=== PATIENT | male | born 1940 | race Caucasian/White ===

== ENCOUNTER 2024-07-09 14:28 | Outpatient (CLI) | payer MEDICARE, SELFPAY ==
--- NOTE | 2024-07-17 16:09 | ONC.NURNOTE ---
Received a referral to see hematology, called patient to let him know that it was received. Clarified from provider note that he did not have an appointment. He is aware that nursing will go over his information with Dr. Sahni on Sunday to find the appropriate timing to see him.
== END 2024-07-09 14:29 | disposition home or self-care (01) ==
PROVIDERS: PCP Internal Medicine; Visit Provider Family Medicine
DX: Z13.228 Encounter for screening for other metabolic disorders (principal); D47.3 Essential (hemorrhagic) thrombocythemia
CPT/HCPCS: 80053; 82728

== ENCOUNTER 2024-07-17 14:35 | Outpatient (CLI) | payer MEDICARE, SELFPAY | END 2024-07-17 14:36 | disposition home or self-care (01) | LOC: NFLDREF 07-22 03:07 | PROVIDERS: PCP Internal Medicine; Referring Provider Internal Medicine; Visit Provider Internal Medicine | DX: N30.00 Acute cystitis without hematuria (principal); B95.61 Methicillin susceptible Staphylococcus aureus infection as the cause of diseases classified elsewhere | CPT/HCPCS: 87086; 87186 ==

== ENCOUNTER 2024-07-23 08:17 | Outpatient (CLI) | payer MEDICARE, SELFPAY | END 2024-07-23 08:18 | disposition home or self-care (01) | LOC: NFLDREF 07-25 00:59 | PROVIDERS: PCP Internal Medicine; Referring Provider Internal Medicine; Visit Provider Internal Medicine | DX: D75.839 Thrombocytosis, unspecified (principal) | CPT/HCPCS: 87040 ==

== ENCOUNTER 2024-07-28 11:03 | Outpatient (CLI) | payer MEDICARE, SELFPAY ==
[2024-07-28 11:28] VITALS: BP 110/50; PULSE 59; RESP 14; O2SAT 96; BMI 22.8
[2024-07-28 12:30] VITALS: BP 103/57; PULSE 57; RESP 14; O2SAT 97
--- NOTE | 2024-07-28 12:34 | W.ANESCHARGE ---
Anesthesia Charges Start Date/Time Anesthesia Start Date: 07/28/24 Anesthesia Start Time: 12:01 Stop Date/Time Anesthesia Stop Date: 07/28/24 Anesthesia Stop Time: 12:30 Summary Extremes of Age - Over 70 or under 1: DATA PROCESSING AUDITOR Coding CPT Codes CPT Codes: ANESTH BONE ASPIRATE/BX - 96744 ([id number]) P2 - PATIENT W/MILD SYST DISEASE, QK - COMMERCIAL LOAN ANALYST 2-4 CNCRNT ANES PROC, QX - DATA PROCESSING AUDITOR SVC W/ MD MED DIRECTION Additional Codes: Summary - Extremes of Age - Over 70 or under 1: DATA PROCESSING AUDITOR ([id number])
--- NOTE | 2024-07-28 12:40 | W.ANESCHARGE ---
Anesthesia Charges Start Date/Time Anesthesia Start Date: 07/28/24 Anesthesia Start Time: 12:01 Stop Date/Time Anesthesia Stop Date: 07/28/24 Anesthesia Stop Time: 12:30 Summary Extremes of Age - Over 70 or under 1: MDA Coding CPT Codes CPT Codes: ANESTH BONE ASPIRATE/BX - 53689 ([id number]) P2 - PATIENT W/MILD SYST DISEASE, QK - OBGYN NURSE 2-4 CNCRNT ANES PROC, QX - CAMPUS RECRUITING INTERNSHIP SVC W/ MD MED DIRECTION Additional Codes: Summary - Extremes of Age - Over 70 or under 1: MDA ([id number])
[2024-07-28 12:41] VITALS: BP 106/60; PULSE 58; RESP 14; O2SAT 95
[2024-07-28 12:45] LABS: Basophils Absolute Auto 0.08 K/uL (0.00-0.30); Basophils Percent Auto 0.8 % (0.0-3.0); Eosinophils Absolute Auto 0.39 K/uL (0.00-0.50); Eosinophils Percent Auto 3.7 % (0.0-7.0); Hematocrit 39.3 % (37.0-53.0); Hemoglobin* 12.8 gm/dL (13.5-17.5); Immature Granulocytes Abs Auto 0.07 K/uL (0.00-0.30); Immature Granulocytes Pct Auto 0.7 %; Immature Reticulocyte Fraction 14.2 % (2.3-13.4); Lymphocytes Percent Auto 11.1 % (20-44); Mean Corpuscular HGB Conc 33 gm/dL (32-36); Mean Corpuscular Hemoglobin 30 pg (26-34); Mean Corpuscular Volume 91 fL (80-100); Monocytes Percent Auto 8.2 % (0.0-11.0); Neutrophils Percent Auto 75.5 % (42.0-72.0); Platelet Count* 816 K/uL (140-440); RDW Coefficient of Variation % 15.9 % (11.5-15.5); Red Blood Count 4.32 m/uL (4.30-5.90); Reticulocyte Hemoglobin Equivi 32.6 pg (29.0-35.0); Reticulocytes Absolute 0.04 # (0.03-0.08); White Blood Count* 10.48 K/uL (4.50-11.00)
[2024-07-28 12:50] LABS: Slide Review Reflex No
[2024-07-28 12:51] VITALS: BP 104/57; PULSE 55; RESP 16; O2SAT 95
== END 2024-07-28 13:11 | disposition home or self-care (01) ==
LOC: OR 11:04
PROVIDERS: Anesthesiology; PCP Internal Medicine; Visit Provider Internal Medicine Hematology & Oncology
DX: D47.1 Chronic myeloproliferative disease (principal); D75.839 Thrombocytosis, unspecified
CPT/HCPCS: 01112; 36415; 38222; 85025; 85045; 88237; 88264; 88305; 88311; 88313; 88360; 99100; J1644; J2003; J2704

== ENCOUNTER 2024-08-04 09:31 | Outpatient (CLI) | payer MEDICARE, SELFPAY | END 2024-08-04 09:32 | disposition home or self-care (01) | PROVIDERS: PCP Internal Medicine; Visit Provider Internal Medicine Hematology & Oncology | DX: R63.4 Abnormal weight loss (principal); K43.9 Ventral hernia without obstruction or gangrene; K40.90 Unilateral inguinal hernia, without obstruction or gangrene, not specified as recurrent; R16.1 Splenomegaly, not elsewhere classified; D47.1 Chronic myeloproliferative disease; D75.839 Thrombocytosis, unspecified | CPT/HCPCS: 71260; 74177; Q9967 ==

== ENCOUNTER 2024-08-04 10:21 | Emergency (ER) | payer MEDICARE, SELFPAY ==
[2024-08-04] VITALS (12 sets, daily range): BP systolic 96–121; BP diastolic 48–62; PULSE 50–57; RESP 4–22; TEMP 36.6; O2SAT 94–96; BMI 22.5
--- NOTE | 2024-08-04 10:45 | ED.ALLEREA ---
HPI - Allergic Reaction General Date Seen: 08/04/24 Chief complaint: Allergic Reaction Stated complaint: Potential allergic reaction from CT contrast Time Seen by Provider: 08/04/24 10:25 Source: patient and family Mode of arrival: ambulatory Limitations: no limitations History of Present Illness HPI narrative: Patient is a very nice 83-year-old gentleman who presents here for evaluation after he received IV contrast for an abdominal CT approximately 50 minutes ago. He was an outpatient for this procedure, developed some issue in his around his neck, and his torso. With the small area of rash. He also feels like he has a cotton mouth. He does not feel short of breath he is able to talk normally tells me. He has had no nausea vomiting, abdominal pain associated with this. No diarrhea. Or feeling like he might be dizzy or pass out. Further to this he does not have a history of any previous allergic reactions, Denies any chest pain, shortness of breath, wheezing, headache, neurologic symptoms. 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 Has appointment for spinal surgery coming up. History of the large ventral hernia abdominal. Cholecystectomy, No history of any cardiac, lung problems. MD complaint: allergic reaction, hives and other Onset (ago): minute(s) Exposure: medication ( Contrast) and other Symptoms: rash, itching and hoarseness Severity: moderate Treatment prior to arrival: none Previous Allergic Reaction History: none Related Data Home Medications ?Medication ?Instructions ?Recorded ?Confirmed mv-mn-folic 200 mcg-vit K 15 1 cap PO DAILY 09/10/23 08/04/24 mcg-lutein 5 mg-zeaxanthin 1 mg capsule (PreserVision AREDS 2 Plus Multivit) Relaxium PO 07/23/24 Previous Rx's ?Medication ?Instructions ?Recorded oxycodone 5 mg tablet 15 mg (3 x 5 mg) PO TID PRN pain 07/17/24 #180 tabs morphine 15 mg tablet,extended 15 mg PO Q12H #60 tabs 07/22/24 release (MS Contin) hydroxyurea 500 mg capsule (Hydrea) 500 mg PO BID #60 caps 07/23/24 prednisone 20 mg tablet 20 mg PO BID #10 tabs 08/04/24 Allergies Allergy/AdvReac Type Severity Reaction Status Date / Time amoxicillin Allergy Unknown Hives Verified 08/04/24 10:33 contrast dye Allergy Mild hives Uncoded 08/04/24 10:33 Review of Systems Status of ROS Reports: 10 or more systems reviewed and unremarkable except as noted in History and below [facility] Medical History 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) ?Z86.718 - Personal history of other venous thrombosis and embolism (ICD-10) Surgical History History of tonsillectomy ?Z90.89 - Acquired absence of other organs (ICD-10) History of appendectomy (1956) ?Z90.49 - Acquired absence of other specified parts of digestive tract (ICD-10) History of ventral hernia repair (09/2009) ?Z98.890 - Other specified postprocedural states (ICD-10) ?Z87.19 - Personal history of other diseases of the digestive system (ICD-10) History of cholecystectomy ?Z90.49 - Acquired absence of other specified parts of digestive tract (ICD-10) History of partial colectomy (2002) ?Z90.49 - Acquired absence of other specified parts of digestive tract (ICD-10) Family History Father Alcohol dependence Social History Smoking Status: Former smoker Do you use any of these nicotine containing products: None How often do you have a drink containing alcohol: never AUDIT-C Alcohol total score: 0 Non-prescribed substance use: denies use Exam Narrative: Exam Narrative: on examination in room 4 he is in no apparent distress speaking to me normally, nontoxic, pupils equal round reactive to light, oropharynx reveals a slightly swollen uvula, tonsillar pillars are normal, tongue is normal, mouth opening is normal with absence of trismus. Neck is supple, chest is good air entry bilaterally no wheezing crackles noted, heart sounds no clicks murmurs or gallops, abdomen is soft there is no guarding no organomegaly, large ventral hernias notable. No tenderness to palpation bowel sounds are normal, no CVA tenderness moves all extremities independently and well, cranial nerves 3-12 are normal, skin reveals areas of urticarial lesions. Over his chest and torso. Const: Vital Signs, click to edit/add: Vital Signs - 24 hr 08/04/24 10:28 08/04/24 11:19 08/04/24 11:30 Temperature 97.8 F Pulse Rate 50 L 52 L Pulse Rate [Right Pulse Oximeter] 57 L Respiratory Rate 16 14 7 L Blood Pressure Blood Pressure [Ri ght Upper Arm] 121/62 Pulse Oximetry 94 95 95 Oxygen Delivery Me thod Room Air 08/04/24 11:31 08/04/24 11:40 08/04/24 11:41 Temperature Pulse Rate 53 L 53 L Pulse Rate [Right Pulse Oximeter] Respiratory Rate 9 L 22 Blood Pressure 97/48 L 100/51 L Blood Pressure [Ri ght Upper Arm] Pulse Oximetry 95 96 94 Oxygen Delivery Me thod Documenting provider has reviewed patient's vital signs: yes Course Reevaluation(s) Time of Reevaluation #1: 12:29 Reevaluation #1: patient is feeling better, little bit tired from the Benadryl, a rash is gone away, his swelling of his uvula is markedly improved, I think at this point we can discharge him, I did talk to them about the fact that he is allergic to contrast in the should be known going forward for his other providers that are not in our system. We went over warning signs when he should be re-presented we will give a prescription for prednisone for the next 5 days, and he will use some [id number] Benadryl. They were anxious to get at a here, Vital Signs Vital signs: Initial Vital Signs Temperature 97.8 F 08/04/24 10:28 Temperature Source Temporal Artery Scan 08/04/24 10:28 Pulse Rate 57 L 08/04/24 10:28 Respiratory Rate 16 08/04/24 10:28 Blood Pressure 121/62 08/04/24 10:28 Blood Pressure Mean 81 08/04/24 10:28 Blood Pressure Position Sitting 08/04/24 10:28 Pulse Oximetry 94 08/04/24 10:28 Oxygen Delivery Method Room Air 08/04/24 10:28 Vital Signs Temperature 97.8 F 08/04/24 10:28 Pulse Rate 57 L 08/04/24 10:28 Respiratory Rate 16 08/04/24 10:28 Blood Pressure 121/62 08/04/24 10:28 Pulse Oximetry 94 08/04/24 10:28 Oxygen Delivery Method Room Air 08/04/24 10:28 Temperature 97.8 F 08/04/24 10:28 Pulse Rate 53 L 08/04/24 11:40 Respiratory Rate 22 08/04/24 11:40 Blood Pressure 100/51 L 08/04/24 11:40 Pulse Oximetry 94 08/04/24 11:41 Oxygen Delivery Method Room Air 08/04/24 10:28 Medications Administered Medications: Discontinued Medications Generic Name Dose Route Start Last Admin Trade Name Freq PRN Reason Stop Dose Admin Diphenhydramine HCl 25 mg 08/04/24 10:41 08/04/24 11:01 Diphenhydramine 50 Mg/Ml Inj IVP 08/04/24 10:42 25 mg ONCE ONE Administration Sodium Chloride 500 mls @ 500 mls/hr 08/04/24 10:44 08/04/24 11:02 0.9 % Sodium Chloride 500 Ml IV 08/04/24 11:43 500 mls/hr .Q1H ONE Administration Methylprednisolone Sodium Succinate 125 mg 08/04/24 10:41 08/04/24 11:01 Methylprednisolone Sod Succ 62.5 Mg/Ml (125) IVP 08/04/24 10:42 125 mg ONCE ONE Administration MDM - Allergic Reaction MDM Narrative Medical decision making narrative: during this evaluation I considered multiple diagnosis, such as infectious etiology, anaphylaxis, allergic reaction, urticaria, angioedema, or other possibilities, given his past history of myeloproliferative disease I suspect that something with this. He does have some mild throat swelling notable on examination we will go ahead start an IV, give him some Benadryl along with the some Solu-Medrol, watch him closely. For signs of worsening condition, judicious fluids will also be used. Given his age. Differential Diagnosis Differential diagnosis: Likely anaphylaxis, allergic reaction, angioedema, contact dermatitis, adverse reaction to drug, viral enanthem and urticaria Medical Records Attestation: I reviewed the patient's medical records. Lab Data Attestation: I reviewed the patient's lab results. Labs: Lab Results 08/04/24 Range/Units 10:47 WBC 4.28 L (4.50-11.00) K/uL RBC 4.04 L (4.30-5.90) m/uL Hgb 12.1 L (13.5-17.5) gm/dL Hct 37.3 (37.0-53.0) % MCV 92 (80-100) fL MCH 30 (26-34) pg MCHC 32 (32-36) gm/dL RDW Coeff of Kiran 16.0 H (11.5-15.5) % Plt Count 466 H (140-440) K/uL Neut % (Auto) 70.0 (42.0-72.0) % Lymph % (Auto) 19.4 L (20-44) % Beckham % (Auto) 7.2 (0.0-11.0) % Eos % (Auto) 2.3 (0.0-7.0) % Baso % (Auto) 0.9 (0.0-3.0) % Neut # (Auto) 3.00 (1.7-7.0) K/uL Lymph # (Auto) 0.80 L (0.90-2.90) K/uL Beckham # (Auto) 0.30 (0.00-0.90) K/UL Eos # (Auto) 0.10 (0.00-0.50) K/uL Baso # (Auto) 0.00 (0.00-0.30) K/uL Abs Immat Gran (auto) 0.00 (0.00-0.30) K/uL Imm/Tot Granulo (auto) 0.2 % Diff Slide Review Acceptable Review (Acceptable) Sodium 140 (135-149) mmol/L Potassium 3.9 (3.6-5.1) mmol/L Chloride 106 (96-114) mmol/L Carbon Dioxide 26 (20-32) mmol/L Anion Gap 8 (7-15) mEq/L BUN 24 (7-30) mg/dL Creatinine 0.8 (0.5-1.5) mg/dL Estimated Creat Clear 51.28 Estimated GFR 87 ml/min Glucose 102 (60-115) mg/dL Calcium 8.8 (8.4-10.6) mg/dL ECG Data Attestation: I personally reviewed and interpreted this ECG as follows: ECG interpretation date: 08/04/24 Prior ECG tracings: available for review Interpretation: Patient EKG lots of artifact secondary to muscle tremors. He has occasional PVCs, no acute changes, compared to old EKG from 07/28/2024, less muscle movement artifact is noted, QT is slightly prolonged, at 436 Discharge Plan Discharge Clinical Impression: Allergic reaction to contrast dye Patient Disposition: Home w/ Parent or Adult Condition: Improved Instructions: Urticaria (ED), General Allergic Reaction (ED) Additional Instructions: home, rest, use of Benadryl, 25 mg p.o. t.i.d. for the next 24 hours, if rash reoccurs, recommend use of prednisone 20 mg b.i.d. for 5 days. Please know that you will likely have a reaction to contrast now for CT scans in the should be voiced year doctors, including if you have any follow-up CT scans in the future. Return if increasing shortness of breath, Oropharyngeal swelling, rash,chest pain or other issues. Activity Level: Light activity Discharge Diet: Regular Prescriptions: New prednisone 20 mg tablet 20 mg PO BID Qty: 10 0RF No Action PreserVision AREDS 2 Plus MV 200 mcg-15 mcg- 5 mg-1 mg capsule 1 cap PO DAILY oxycodone 5 mg tablet 15 mg PO TID PRN (Reason: pain) Qty: 180 0RF Relaxium PO Patient Comments: Helps sleep at night hydroxyurea [Hydrea] 500 mg capsule 500 mg PO BID Qty: 60 1RF morphine [MS Contin] 15 mg tablet extended release 15 mg PO Q12H Qty: 60 0RF Follow Up/Referrals: Nicolette Parikh MD [Primary Care Provider] - Stand Alone Forms: [employer] Info Instructions
[2024-08-04 11:00] LABS: Basophils Percent Auto 0.9 % (0.0-3.0); Eosinophils Percent Auto 2.3 % (0.0-7.0); Hematocrit 37.3 % (37.0-53.0); Hemoglobin* 12.1 gm/dL (13.5-17.5); Immature Granulocytes Pct Auto 0.2 %; Lymphocytes Percent Auto 19.4 % (20-44); Mean Corpuscular HGB Conc 32 gm/dL (32-36); Mean Corpuscular Hemoglobin 30 pg (26-34); Mean Corpuscular Volume 92 fL (80-100); Monocytes Percent Auto 7.2 % (0.0-11.0); Platelet Count* 466 K/uL (140-440); Red Blood Count 4.04 m/uL (4.30-5.90); White Blood Count* 4.28 K/uL (4.50-11.00)
[2024-08-04] MEDS: METHYLPREDNISOLONE SOD SUCC 62.5 MG/ML (125) 125 MG IVP (11:01)
[2024-08-04] MEDS: diphenhydrAMINE 50 MG/ML inj 25 MG IVP (11:01)
[2024-08-04] MEDS: 0.9 % SODIUM CHLORIDE 500 ML 500 ML IV (11:02)
[2024-08-04 11:07] LABS: Slide Review Reflex Yes
[2024-08-04 11:08] LABS: Chloride* 106 mmol/L (96-114); Potassium* 3.9 mmol/L (3.6-5.1); Sodium* 140 mmol/L (135-149)
[2024-08-04 11:11] LABS: Anion Gap 8 mEq/L (7-15); Blood Urea Nitrogen* 24 mg/dL (7-30); Carbon Dioxide* 26 mmol/L (20-32); Creatinine* 0.8 mg/dL (0.5-1.5); Est. Creatinine Clearance* 51.28; Estimated Glomerular Filt Rate 87 ml/min; Glucose* 102 mg/dL (60-115)
[2024-08-04 11:12] LABS: Calcium* 8.8 mg/dL (8.4-10.6)
[2024-08-04 11:21] LABS: Slide Review Acceptable Review (Acceptable)
== END 2024-08-04 13:00 | disposition home or self-care (01) ==
PROVIDERS: Emergency Provider Family Medicine; PCP Internal Medicine
DX: R21 Rash and other nonspecific skin eruption (principal); T50.8X5A Adverse effect of diagnostic agents, initial encounter
CPT/HCPCS: 36415; 80048; 85025; 93005; 94761; 96374; 96375; 99284; J1200; J2919; J7030

== ENCOUNTER 2024-08-07 14:54 | Outpatient (CLI) | payer MEDICARE, SELFPAY ==
--- NOTE | 2024-08-07 15:00 | CRLHL7_ITS ---
For Patients: As a result of the 21st Century Cures Act, medical imaging exams and procedure reports are released immediately into your electronic medical record. You may view this report before your referring provider. If you have questions, please contact your health care provider. EXAM: FDG PET-CT Whole Body CLINICAL INFORMATION: 83-year-old woman with history of bone marrow disorders/myeloproliferative neoplasm. Initial staging TECHNIQUE: Radiopharmaceutical: 18F-fluorodeoxyglucose (18F-FDG) Dose: 12.6 milliCurie Blood glucose: 86 mg/dL. Image acquisition: At approximately 60 minutes following IV tracer administration via a right antecubital vein, positron emission tomography was performed from the vertex of the skull through the feet. Non-contrast low-dose helical CT imaging was performed over the same range without breath-hold for attenuation correction of PET images and anatomic correlation; it is neither sufficient, nor should it be substituted for diagnostic purposes. COMPARISON: CT chest abdomen and pelvis 08/04/2024. FINDINGS: Mediastinal blood pool FDG uptake: SUVMax 3.0 (image 149) Liver background parenchymal FDG uptake: SUVMax 4.2 (image 194) HEAD AND NECK: No abnormal FDG uptake in the imaged head and neck. Bilateral lens replacements. CHEST: Ports and devices: None. Lungs: No abnormal FDG uptake. Biapical scarring. Subsegmental atelectasis. Pleura: No abnormal FDG uptake. Thoracic lymph Nodes: No abnormal FDG uptake. Mediastinum: No abnormal FDG uptake. Coronary artery calcifications. Atherosclerotic calcifications of the thoracic aorta. Breasts/Chest Wall: No abnormal FDG uptake. ABDOMEN/PELVIS: Liver/biliary system: No abnormal FDG uptake. Cholecystectomy clips. Pancreas: No abnormal FDG uptake. Spleen: No abnormal FDG uptake. Unchanged splenomegaly measuring 15.0 cm in the craniocaudal dimension compared to 08/04/2024 (5:176, remeasured). Adrenal Glands: No abnormal FDG uptake. Kidneys: No abnormal FDG uptake. Bilateral renal cysts. Bowel/mesentery, Omentum and Peritoneum: No abnormal FDG uptake. Large ventral abdominal wall hernia with rectus diastasis containing nonobstructed large and small bowel loops. Large right inguinal hernia extending into the scrotum containing nonobstructed terminal ileum, cecum, and proximal ascending colon. Prior partial colectomy with patent anastomosis in the central lower abdomen. Atherosclerotic calcifications. Pelvic Organs: Intense asymmetric focal uptake in the right epididymis SUVMax 14.1 (Image 338). Abdominopelvic Lymph Nodes: No abnormal FDG uptake. Musculoskeletal/Lower extremities: Diffusely increased mild focal uptake and. Fixation plate along the right distal fibula with hardware fixation screws. Hardware fixation screw in the right medial malleolus. Diffusely increased mild marrow uptake in the axial skeleton for example in the right posterior iliac bone SUV max 3.8 (image 260). Multilevel degenerative changes in the spine. Compression deformity at T7. IMPRESSION: 1. Diffusely increased mild marrow uptake in the axial and proximal appendicular skeleton likely representing reticuloendothelial cell activation. Together with splenomegaly measuring 15.0 cm, although without evidence of abnormal increased splenic FDG uptake, findings are compatible with either a systemic inflammatory process, versus a low-grade myeloproliferative process. Correlate with clinical history for recent infection/inflammation. In the absence of any recent infection/inflammation, correlate with bone marrow sampling. 2. Intense FDG uptake in the right epididymis may be inflammatory. Correlate with testicular ultrasound. Dictated by Deniz Hagan MD @ 08/11/2024 10:28:48 AM (Electronically Signed)
== END 2024-08-07 14:55 | disposition home or self-care (01) ==
LOC: RAD 14:55
PROVIDERS: PCP Internal Medicine; Visit Provider Internal Medicine Hematology & Oncology
DX: R77.9 Abnormality of plasma protein, unspecified (principal); C88.80 Other malignant immunoproliferative diseases not having achieved remission
CPT/HCPCS: 78816; A9552

== ENCOUNTER 2024-09-04 13:51 | Outpatient (CLI) | payer MEDICARE, SELFPAY ==
--- NOTE | 2024-09-04 13:45 | CRLHL7_ITS ---
For Patients: As a result of the Century Cures Act, medical imaging exams and procedure reports are released immediately into your electronic medical record. You may view this report before your referring provider. If you have questions, please contact your health care provider. INDICATION: Abnormal PET uptake right epididymis COMPARISON: CT 08/04/2024, 08/07/2024 TECHNIQUE: Victoria scale imaging was performed of the scrotum. In addition color Doppler and spectral Doppler analysis was performed of the testes. FINDINGS: The testes demonstrate normal arterial and venous blood flow on color Doppler and spectral Doppler analysis. The testes have uniform echogenicity with no evidence of a suspicious mass or area of inflammation. Bilateral rete testes incidentally noted. The right testis measures 4.1 x 2.0 x 5.0 cm in size and the left testis measures 4.0 x 2.2 x 3.2 cm. Multiple simple cysts are present adjacent to the left epididymal head measuring up to 1.6 cm. Smaller right epididymal head cysts are present measuring up to 4 millimeters. There is no evidence of a hydrocele or varicocele. IMPRESSION: Multiple cysts are present adjacent to the left epididymal head measuring up to 1.6 cm. No testicular mass. No solid epididymal lesion. Dictated by Colin Escobar MD @ 09/05/2024 7:12:57 AM (Electronically Signed)
== END 2024-09-04 13:52 | disposition home or self-care (01) ==
PROVIDERS: PCP Internal Medicine; Visit Provider Internal Medicine Hematology & Oncology
DX: D47.3 Essential (hemorrhagic) thrombocythemia (principal); N50.3 Cyst of epididymis; R63.4 Abnormal weight loss; Z86.718 Personal history of other venous thrombosis and embolism
CPT/HCPCS: 76870; 93976

== ENCOUNTER 2024-10-03 12:53 | Emergency (ER) | payer MEDICARE, SELFPAY ==
--- OUTSIDE RECORDS SUMMARY | 2024-10-03 12:56 | XMS_ITS | Encounter Summary ---
Author Organization [facility] Address [address] [place] [id number] Care Team Providers Care Integrated Marketing Specialist Name Role Phone Sydney Huff DO Unavailable [phone] Leidy Henderson AuD Unavailable [phone] RefugioBetoSydney DO Unavailable [phone] Nicolette Parikh MD Primary Care Provider [phone] Rd Chang MD Unavailable [phone] Jorge A Storey MD Unavailable [phone] Encounter Details Date Type Department Care Team (Late st Contact Info) Description 09/01/2024 Documentation Only [facility] [address] [place] [address] Jorge A Storey MD [address] [place] [id number] Social History Tobacco Use Types Packs/Day Years Used Date Smoking Tobacco: Former Passive Smoke Exposure: Past Smokeless Tobacco: Never Alcohol Use Standard Drinks/Week Comments Yes 0 (1 standard drink = 0.6 oz pur e alcohol) PHQ-2 Answer Date Recorded PHQ-2 Score 0 07/22/2024 Adolescent Education Answer Date Record ed Getting School Help Needed Not on file 02/17 Sex and Gender Information Value Date Recorded Sex Assigned at Not on file Legal Sex Male 1:28 PM CDT Gender Identity Not on file Sexual Orientation Not on file documented as of this encounter Progress Notes * Kendall Yusuf - 09/01/2024 5:46 PM CDT Luis Markham has an upcoming lab appointment: Future Appointments Date Time Provider Department Center 09/03/2024 12:15 PM Melody Wood PA-C [facility] 09/04/2024 11:45 AM [facility] 10/28/2024 12:50 PM Jorge A Storey MD [facility] 01/02/2025 10:45 AM Sydney Huff DO [facility] Patient is scheduled for the following lab(s): There is no order available. Please review and place either future orders or HMPO (Review of HealthMaintenance Protocol Orders), as appropriate. Health Maintenance Due Topic ANNUAL REVIEW OF HM ORDERS Kendall Yusuf documented in this encounter Plan of Treatment Upcoming Encounters Date Type Department Care Team (Late st Contact Info) Description 10/28/2024 12:50 PM CDT Office Visit [facility] Orthopedic [address] [phone] Jorge A Storey MD [address] [place] [id number] 01/02/2025 10:45 AM CDT Office Visit [facility] [address] [phone] Sydney Huff DO [address] [place] [id number] documented as of this encounter Visit Diagnoses Not on filedocumented in this encounter Care Teams Integrated Marketing Specialist Relationship Specialty Start Date End Date Nicolette Parikh MD [address] [address] PCP - General Internal Medicine 10/18/22 Sydney Huff DO [address] [place] [address] Neurology 08/05/21 Leidy Henderson AuD [address] [place] [address] [employer] Audiology 11/14/21 Sydney Huff DO [address] [place] [id number] Assigned Neuroscience Provider 01/21/22 Rd Chang MD [address] [place] [id number] Assigned PCP 04/19/24 Jorge A Storey MD [address] [place] [id number] Assigned Musculoskeletal Provider 08/17/24 documented as of this encounter
--- OUTSIDE RECORDS SUMMARY | 2024-10-03 12:56 | XMS_ITS | Encounter Summary ---
Author Organization [facility] Address [address] [place] [address] Care Team Providers Care Customer Support Engineer Name Role Phone Sydney Huff Unavailable [phone] Leidy Henderson Unavailable [phone] RefugioSydney Unavailable [phone] Nicolette Parikh MD Primary Care Provider Rd Chang MD Unavailable [phone] Jorge A Storey MD Unavailable + [phone] Reason for Visit * Reason Onset Date Comments Patient Request 09/02/2024 Lab orders Clinic Care Coordination - Follow-up 09/02/2024 Encounter Details Date Type Department Care Team (Late st Contact Info) Description 09/02/2024 Telephone [facility] [address] [place] [address] Jorge A Storey MD [address] [place] [address] [id number] Patient Request (Lab orders); Clinic Care Coordination - Follow-up Social History Tobacco Use Types Packs/Day Years [...] on file documented as of this encounter Miscellaneous Notes * Telephone Encounter - Ingrid Escobedo RN - 09/04/2024 3:02 PM CDT See phone messages back & forth with pt. Pt did not have preop H&P done by [facility] clinic. I called & spoke to pt & who stated preop H&P was done by Primary provider at [facility] but they can't remember what date until they get home & check their calendar. stated she spoke to Primary office today & asked them to fax to us. I told them if it was done less than 30 days before surgery date next week 09-11-24, then needs to be repeated STAT so will need to call primary clinic right away & she agreed. Provided our clinic fax# & ph# prn. Reviewed needs Labs ORDERED BY PRIMARY & last labs in emr of 08-04-24 were in ER & outside the 30 day window so will need to be repeated & ORDERED BY PRIMARY PROVIDER & they agreed. Call back prn. They agreed. Ingrid Escobedo RN. * Telephone Encounter - Mckenna Odonnell - 09/04/2024 11:58 AM CDT Other: Patient is at the [facility] lab right now for blood draw. They do not have orders. Can theses orders be placed by Dr. Storey, so patient can be seen today? Please call them back as soon as possible. Could we send this information to you in [place] or would you prefer to receive a phone call?: Patient would prefer a phone call Okay to leave a detailed message?: Yes at Cell number on file: Telephone Information: * Telephone Encounter - Yvonne Trejo RN - 09/03/2024 9:58 AM CDT Labs will be placed by [facility] today prior to lab tomorrow. Yvonne Trejo RN * Telephone Encounter - Rubina Bowie - 09/03/2024 8:[address] [facility] calling again- to confirm labs will be put in before the lab appt tomorrow * Telephone Encounter - Yvonne Trejo RN - 09/02/2024 10:33 AM CDT RN attempted to call patient's to discuss labs. Patient is seeing pre op tomorrow where labs will be ordered and then completed on . Yvonne Trejo RN * Telephone Encounter - Tee Darby - 09/02/2024 8:51 AM CDT Order(s): Other: Reason for requested: Pt needs lab orders for a blood draw on at [facility] Date needed: 09/02 Provider name: Dr. Storey Could we send this information to you in [place] or would you prefer to receive a phone call?: Patient would prefer a phone call Okay to leave a detailed message?: Yes at Cell number on file: Telephone Information: documented in this encounter Plan of Treatment Upcoming Encounters Date Type Department Care Team (Late st Contact Info) Description 10/28/2024 12:50 PM CDT Office Visit [facility] [address] [phone] Jorge A Storey MD [address] [place] [address] 947065 01/02/2025 10:45 AM CDT Office Visit [facility] [address] [place] [phone] Sydney Huff DO [address] [place] [address] documented as of this encounter Visit Diagnoses Not on filedocumented in this encounter Care Teams Customer Support Engineer Relationship Specialty Start Date End Date Nicolette Parikh MD [address] [address] PCP - General Internal Medicine 10/18/22 Sydney Huff DO [address] [place] [address] 23773 Neurology 08/05/21 Leidy Henderson AuD [address] [place] [address] Ese Teacher Audiology 11/14/21 Sydney Huff DO [address] [place] [address] 77080 Assigned Neuroscience Provider 01/21/22 Rd Chang MD [address] [place] [address]65 Assigned PCP 04/19/24 Jorge A Storey MD [address] [place] [address] 97[address] Assigned Musculoskeletal Provider 08/17/24 documented as of this encounter
--- OUTSIDE RECORDS SUMMARY | 2024-10-03 12:56 | XMS_ITS | Encounter Summary ---
Author Organization [facility] Address [address] [place] [address] Care Team Providers Care Shoe Associate Name Role Phone Sydney Huff DO Unavailable [phone] Leidy Henderson Unavailable [phone] Sydney Huff Unavailable [phone] Nicolette Parikh MD Primary Care Provider Rd Chang MD Unavailable [phone] Jorge A Storey MD Unavailable + [phone] Reason for Visit * Reason Comments Pre-Op Exam Encounter Details Date Type Department Care Team (Latest Contact Info) Description 09/03/2024 12:15 PM CDT Virtual Visit [facility] [address] 5th [place] [address] Melody Wood, PA-C [address] [place] [address] [phone] NO SHOW (Primary Dx) Anesthesia Record Procedure Summary Procedure Name Responsible Anesthesiologist Anesthesia Start Time Anesthesia Stop Time Lumbar 5 to Sacral 1 Decompression (Spine) Margaret Rao MD 09/11/24 1228 09/11/24 1505 Events Date Time Event Comment 09/11/2024 0708 1037 CERTIFIED DETENTION DEPUTY Ready for Procedure 1228 An Start Anesthesia Star t is defined as when the anesthesia provider assumed care, began anesthesia prep, remained continuously present with the patient, and excludes all time for performing the pre-anesthesia evaluation. The Pre-Anesthesia Evaluation was completed before Anesthesia Start. 1234 An Start Data 1235 AN REASSESS I attest that I have identified and re-evaluated the patient immediately before the induction of anesthesia and I am satisfied that the anesthetic plan is suitable for the patient's condition and procedure. The first vital signs recorded are pre-induction. SHAISTA PERALES APRN CRNA 1241 An Induction 1245 An Intubation 1300 Anesthesia Ready for Procedu re 1303 MD Present 1323 AN INCISION 1436 CERTIFIED DETENTION DEPUTY Handoff I, Luisana Lawson APRN CRNA, attest that I have reviewed all the significant information with the provider relieving me and assuming care of this patient. All questions were answered, anesthesia and OR team are aware of change of CERTIFIED DETENTION DEPUTY. 1457 AN Extubation All extubation criteria met prior to removal. 1505 an stop data 1505 An Stop Electronically signed by Luisana Lawson APRN CRNA on September 11, 2024 3:05 PM Meds * Agents No agents on file. * Blood No blood administrations on file. Lines, Drains, and Airways Type Details Placement Removal Incision/Surgical Site Incision; 5; 1351; Lower, Midline; Back 09/11/24 1351 by Koko Dinh RN Peripheral IV 09/11/24; 1106; 18 G ; Anterior, Left; Hand; Tolerated well 09/11/24 1106 by Serena Morales RN 09/14/24 1400 by Dane Mcgarry RN ETT Placement Date: 09/11/24; Placement Time: 1245 (created via procedure documentation); Mask Ventilation: 1; Induction Type: Intravenous; Ease of Intubation: Easy; Technique: Video laryngoscopy; Tube Size: 7.5 mm; VL Blade Size: MAC 3; Grade View: 1; Adjucts: Stylet; Placement Person: CERTIFIED DETENTION DEPUTY; Attempts: 1 09/11/24 1245 by Jessica Reynolds APRN CRNA 09/11/24 1457 by Luisana Lawson APRN CRNA Drain 09/11/24; 1414; Closed/Suction; Inferior, Left, Medial; Back; Accordion; 10 English 09/11/24 1414 by Koko Dinh RN 09/14/24 1000 by Dane Mcgarry RN documented in this encounter Social History Tobacco Use Types Packs/Day Years Used Date Smoking Tobacco: Former Cigarettes Passive Smoke Exposure: Past Smokeless Tobacco: Never Tobacco Cessation:Counseling Given: Not Answered Alcohol Use Standard Drinks/Week Comments Not Currently 0 (1 standard drink = 0.6 oz [...] on file documented as of this encounter Last Filed Vital Signs Vital Sign Reading Time Taken Comments Blood Pressure - - Pulse - - Temperature - - Respiratory Rate - - Oxygen Saturation - - Inhaled Oxygen Concentration - - Weight 65.8 kg (145 lb) 09/03/2024 12:11 PM CDT Height 172.7 cm (5' 8) 09/03/2024 12:11 PM CDT Body Mass Index 22.05 09/03/2024 12:11 PM CDT documented in this encounter Patient Instructions * Patient Instructions* Ingrid Buck RN - 09/03/2024 12:15 PM CDT Opened in error, pt unable to virtually connect documented in this encounter Progress Notes * Neema Wilkes LPN - 09/03/2024 12:15 PM CDT Arjun is a 83 year old who is being evaluated via a billable video visit. How would you like to obtain your AVS? Subjective Arjun is a 83 year old, presenting for the following health issues: Pre-Op Exam N Chung FRYE documented in this encounter H&P Notes * Melody Wood PA-C - 09/03/2024 12:15 PM CDT Visit was not completed. After rooming staff completed intake with patient, he and family stated that they actually do not have the capabilities for a virtual visit (no working camera or microphone).Due to this, an H&P was not done today. The patient stated he also cannot physically come to [facility] for an appointment, so will reach out to his PCP to complete a pre-op. Melody Wood PA-C on 09/03/2024 at 12:28 PM Review of Systems The complete review of systems is negative other than noted in the HPI or here. Anesthesia Evaluation ROS/MED HX ENT/Pulmonary: Neurologic: Comment: Essential tremor Cardiovascular: (+) - - - - - Previous cardiac testing Echo: Date: Results: Stress Test: Date: Results: ECG Reviewed: Date: 08/04/24 Results: sinus bradycardia with premature supraventricular complexes, junctional ST depression, probably normal Cath: Date: Results: METS/Exercise Tolerance: Hematologic: Comments: Thrombocytosis (+) History of blood clots (2021), pt is not anticoagulated, Musculoskeletal: Comment: 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 GI/Hepatic: Comment: Chronic ventral and right inguinal hernias Renal/Genitourinary: Endo: Psychiatric/Substance Use: Infectious Disease: Malignancy: Other: documented in this encounter Plan of Treatment Upcoming Encounters Date Type Department Care Team (Late st Contact Info) Description 10/28/2024 12:50 PM CDT Office Visit [facility] [address] [place] [phone] Jorge A Storey MD [address] [place] [address] [id number] 01/02/2025 10:45 AM CDT Office Visit [facility] [address] [address] Sydney Huff DO [address] [place] [address] [phone] documented as of this encounter Visit Diagnoses Diagnosis NO SHOW- Primary documented in this encounter Care Teams Shoe Associate Relationship Specialty Start Date End Date Nicolette Parikh MD [address] [address] PCP - General Internal Medicine 10/18/22 Sydney Huff DO [address] [place] [address] Neurology 08/05/21 Leidy Henderson AuD [address] [place] [address] 284[address] Stock Supervisor Audiology 11/14/21 Sydney Huff DO [address] [place] [address] 19821 Assigned Neuroscience Provider 01/21/22 Rd Chang MD [address] [place] [address] Assigned PCP 04/19/24 Jorge A Storey MD [address] [place] [address] 30765 Assigned Musculoskeletal Provider 08/17/24 documented as of this encounter
--- OUTSIDE RECORDS SUMMARY | 2024-10-03 12:57 | XMS_ITS | Encounter Summary ---
Author Organization [facility] Address [address] [place] [address] Care Team Providers Care Balloon Dipper Name Role Phone Sydney Huff Unavailable [phone] Leidy Henderson Unavailable [phone] Sydney Huff DO Unavailable [phone] Nicolette Parikh MD Primary Care Provider Rd Chang MD Unavailable [phone] Jorge A Storey MD Unavailable + [phone] Reason for Visit * Reason Onset Date Comments Call Back 08/21/2024 update Clinic Care Coordination - Follow-up 08/21/2024 Encounter Details Date Type Department Care Team (Late st Contact Info) Description 08/21/2024 Telephone [facility] [address] [place] [address] Jorge A Storey MD [address] [place] [address] [phone] Call Back (update); Clinic Care Coordination - Follow-up Social History [...] Telephone Encounter - Ingrid Escobedo RN - 08/21/2024 3:31 PM CDT See phone message from pt. I called & told pt that per last dictation by pt needs RTN virtual appt to make finaldecision about surgery & pt agreed. Made appt. Call back prn. Ingrid Escobedo RN. * Telephone Encounter - Tee Darby - 08/21/2024 2:46 PM CDT Other: Pt calling to update that his oncology doctor, Dr. Sahni has approved him for surgery, doctors number is Could we send this information to you in [place] or would you prefer to receive a phone call?: Patient would prefer a phone call Okay to leave a detailed message?: Yes at Home number on file [phone] (home) documented in this encounter Plan of Treatment Upcoming Encounters Date Type Department Care Team (Late st Contact Info) Description 10/28/2024 12:50 PM CDT Office Visit [facility] [address] [place] [phone] Jorge A Storey MD [address] [place] [address] 01/02/2025 10:45 AM CDT Office Visit [facility] [address] [address] Sydney Huff DO [address] [place] [address] 746335 documented as of this encounter Visit Diagnoses Not on filedocumented in this encounter Care Teams Balloon Dipper Relationship Specialty Start Date End Date Nicolette Parikh MD [facility] [address] [place] [address] PCP - General Internal Medicine 10/18/22 Sydney Huff DO [address] [place] [address] Neurology 08/05/21 Leidy Henderson AuD [address] [place] [address] Robot Designer Audiology 11/14/21 Sydney Huff DO [address] [place] [address] 00449 Assigned Neuroscience Provider 01/21/22 Rd Chang MD [address] [place] [address] 60814 Assigned PCP 04/19/24 Jorge A Storey MD [address] [place] [address]9023 Assigned Musculoskeletal Provider 08/17/24 documented as of this encounter
--- OUTSIDE RECORDS SUMMARY | 2024-10-03 12:57 | XMS_ITS | Encounter Summary ---
Author Organization [facility] Address [address] [place] [address]70 Care Team Providers Care Tube Man Name Role Phone Tiff Lamar MD Unavailable [phone] Madalyn Sims NP Unavailable Tiff Lamar MD Primary Care Provider + [phone] Sydney Huff DO Unavailable [phone] Leidy Henderson Unavailable [phone] Sydney Huff DO Unavailable [phone] Sydney Huff DO Unavailable [phone] Nicolette Parikh MD Primary Care Provider Barry Grubbs CNP Unavailable + [phone] Rd Chang MD Unavailable [phone] Jorge A Storey MD Unavailable [phone] Encounter Details Date Type Department Care Team (Late st Contact Info) Description 06/27/2016 Records - [facility] HE CONVERSION Scan, Non-Provider Social History Tobacco Use Types Packs/Day Years Used Date Smoking Tobacco: Never Assessed Sex and Gender Information Value Date Recorded Sex Assigned at Not on file Legal Sex Male 1:28 PM CDT Gender Identity Not on file Sexual Orientation Not on file documented as of this encounter Plan of Treatment Upcoming Encounters Date Type Department Care Team (Late Contact Info) Description 10/28/2024 12:50 PM CDT Office Visit [facility] [address] 4th [place] [phone] Jorge A Storey MD [address] [place] [address] 01/02/2025 10:45 AM CDT Office Visit [facility] Neurology [place] [place] [phone] Sydney Huff DO [address] [place] [address] documented as of this encounter Visit Diagnoses Not on filedocumented in this encounter Care Teams Tube Man Relationship Specialty Start Date End Date Tiff Lamar MD [address] [place] [address]43 PCP - General Family Practice 10/16/14 03/27/22 Nicolette Parikh MD [address] [address] PCP - General Internal Medicine 10/18/22 Tiff Lamar MD Assigned PCP 11/10/20 09/29/22 Madalyn Sims NP [address] [place] [address] 27637 Assigned Surgical Provider 12/10/20 01/01/21 Sydney Huff DO [address] [place] [address] Neurology 08/05/21 Leidy Henderson AuD [address] [place] [address] Manager Hotel Audiology 11/14/21 Sydney Huff DO [address] [place] [address] Assigned Neuroscience Provider 01/21/22 Sydney Huff DO [address] [place] [address] Assigned Neuroscience Provider 11/12/21 01/20/22 Barry Grubbs CNP [address] [facility] [address] [place] [address] Assigned PCP 09/30/22 04/18/24 Rd Chang MD [address] [place] [address] [place] [address] Assigned PCP 04/19/24 Jorge A Storey MD [address] [place] [address] Assigned Musculoskeletal Provider 08/17/24 documented as of this encounter
--- OUTSIDE RECORDS SUMMARY | 2024-10-03 12:57 | XMS_ITS | Encounter Summary ---
Author Organization [facility] Address [address] [place] [address] Care Team Providers Care Head Waitress Name Role Phone Tiff Lamar MD Unavailable [phone] Madalyn Sims NP Unavailable Tiff Lamar MD Primary Care Provider + [phone] Sydney Huff DO Unavailable [phone] Leidy Henderson Unavailable [phone] Sydney Huff DO Unavailable [phone] Sydney Huff DO Unavailable [phone] Nicolette Parikh MD Primary Care Provider [phone] Barry Grubbs CNP Unavailable + [phone] Rd Chang MD Unavailable [phone] Jorge A Storey MD Unavailable [phone] Encounter Details Date Type Department Care Team (Late st Contact Info) Description 03/09/2017 Records - [facility] HE CONVERSION Scan, Non-Provider [...] Description 10/28/2024 12:50 PM CDT Office Visit [facility] [address] 4th [place] [phone] Jorge A Storey MD [address] [place] [address] 01/02/2025 10:45 AM CDT Office Visit [facility] Neurology [place] [place] [phone] Sydney Huff DO [address] [place] [address] documented as of this encounter Visit Diagnoses Not on filedocumented in this encounter Care Teams Head Waitress Relationship Specialty Start Date End Date Tiff Lamar MD [address] [place] [address] PCP - General Family Practice 10/16/14 03/27/22 Nicolette Parikh MD [address] [address] PCP - General Internal Medicine 10/18/22 Tiff Lamar MD Assigned PCP 11/10/20 09/29/22 Madalyn Sims NP [address] [place] [address] Assigned Surgical Provider 12/10/20 01/01/21 Sydney Huff DO [address] [place] [address] Neurology 08/05/21 Leidy Henderson AuD [address] [place] [address] Battery Tester Audiology 11/14/21 Sydney Huff DO [address] [place] [address] Assigned Neuroscience Provider 01/21/22 Sydney Huff DO [address] [place] [address] Assigned Neuroscience Provider 11/12/21 01/20/22 Barry Grubbs CNP [address] [facility] [address] [place] [address] Assigned PCP 09/30/22 04/18/24 Rd Chang MD [address] [place] [address] [place] [address] Assigned PCP 04/19/24 Jorge A Storey MD [address] [place] [address] Assigned Musculoskeletal Provider 08/17/24 documented as of this encounter
--- OUTSIDE RECORDS SUMMARY | 2024-10-03 12:57 | XMS_ITS | Encounter Summary ---
Author Organization [facility] Address [address] [place] [address] Care Team Providers Care Switch Technician Name Role Phone Sydney Huff DO Unavailable [phone] Leidy Henderson AuD Unavailable [phone] RefugioSydney DO Unavailable [phone] Nicolette Parikh MD Primary Care Provider Rd Chang MD Unavailable [phone] Jorge A Storey MD Unavailable +[phone] Encounter Details Date Type Department Care Team (Latest Contact Info) Description 09/09/2024 Travel Social History Tobacco Use Types Packs/Day Years Used Date Smoking Tobacco: Former Cigarettes Passive Smoke Exposure: Past Smokeless Tobacco: Never Alcohol Use Standard Drinks/Week Comments Not Currently [...] Description 10/28/2024 12:50 PM CDT Office Visit [facility] Orthopedic Clinic [address] [place] [address] Jorge A Storey MD [address] [place] [address] 01/02/2025 10:45 AM CDT Office Visit [facility] Neurology Clinic [facility] [address] [place] [phone] Sydney Huff DO [address] [place] [address] documented as of this encounter Visit Diagnoses Not on filedocumented in this encounter Care Teams Switch Technician Relationship Specialty Start Date End Date Nicolette Parikh MD [address] [address] PCP - General Internal Medicine 10/18/22 Sydney Huff DO [address] [place] [address] Neurology 08/05/21 Leidy Henderson AuD [address] [place] [address] Senior Software Qa Engineer Audiology 11/14/21 Sydney Huff DO [address] [place] [address] Assigned Neuroscience Provider 01/21/22 Rd Chang MD [address] [place] [address] Assigned PCP 04/19/24 Jorge A Storey MD [address] [place] [address] 51592 Assigned Musculoskeletal Provider 08/17/24 documented as of this encounter
--- OUTSIDE RECORDS SUMMARY | 2024-10-03 12:57 | XMS_ITS | Encounter Summary ---
Author Organization [place] Address [facility] [place] [address] Care Team Providers Care Sccm Administrator Name Role Phone RefugioSydney Unavailable [phone] Leidy Henderson Unavailable [phone] Sydney Huff DO Unavailable [phone] Nicolette Parikh MD Primary Care Provider Rd Chang MD Unavailable [phone] Jorge A Storey MD Unavailable + [phone] Reason for Visit * Auth/Cert Specialty Diagnoses / Procedures Referred By Arron t Referred To Contact Surgery Diagnoses 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 Cyst of lumbar facet joint [M71.38] Spinal stenosis of lumbar region with neurogenic claudication [M48.062] Procedures [place] NEWELL W/O FACETEC FORAMOT/DSKC 1/2 VRT SEG, LUMBAR Lumbar 5 to Sacral 1 Decompression [facility] [address] [place] [address] [place] [phone] Phone: tel: fax: Referral ID Status Reason Start Date Expiration Date Visits Re quested Visits Authorized [id number] 1 1 Encounter Details Date Type Department Care Team (Late st Contact Info) Description 09/11/2024 11:55 AM CDT - 09/11/2024 2:15 PM CDT Surgery [facility] [address] [place] [address] [place] [phone] Jorge A Storey MD [address] [place] [address] Lumbar 5 to Sacral 1 Decompression Surgery Details Date/Time Status Location OR Service Patient Class Case Class Case Type Trauma Case? 09/11/2024 11:55 AM Posted UR OR UR OR 17 Orthopedics Same Day Surgery Elective Panel 1 Procedure LRB Anes Op Region Wound Class Comments Lumbar 5 to Sacral 1 Decompression N/A General Spine I-Clean Surgeon Surgeon Role Service Panel Bishop Jess Valderrama, PAMiC Assisting Orthopedics 1 Jorge A Storey MD Primary Orthopedic s 1 Vinayak Zhu MD Fellow - Assisting Orthopedics 1 Special Needs Estimated Blood Loss: 25ccH&P to be completed by?PLACE PNEUMOBOOTS ON PATIENT IN PRE-OP documented in this encounter Social History Tobacco Use Types Packs/Day Years Used Date Smoking Tobacco: Former Cigarettes Passive Smoke Exposure: Past Smokeless Tobacco: Never Alcohol Use Standard Drinks/Week Comments Not Currently 0 (1 standard drink = 0.6 oz pur e alcohol) PHQ-2 Answer Date Recorded PHQ-2 Score 0 07/22/2024 Adolescent Education Answer Date Record ed Getting School Help Needed Not on file 02/17 Food Insecurity Answer Date Recorded Within the past 12 months, d id you worry that your food would run out before you got money to buy more? No 09/11/2024 Within the past 12 months, d id the food you bought just not last and you didn t have money to get more? No 09/11/2024 Housing Stability Answer Date Recorded Do you have housing? (Housin g is defined as stable permanent housing and does not include staying outside in a car, in a tent, in an abandoned building, in an overnight detention, or couch-surfing.) Yes 09/11/2024 Are you worried about losing your housing? No 09/11/2024 Financial Resource Strain Answer Date R ecorded Within the past 12 months, h ave you or your family members you live with been unable to get utilities (heat, electricity) when it was really needed? No 09/11/2024 Transportation Needs Answer Date Record ed Within the past 12 months, h as lack of transportation kept you from medical appointments, getting your medicines, non-medical meetings or appointments, work, or from getting things that you need? No 09/11/2024 Interpersonal Safety Answer Date Record ed Do you feel physically and e motionally safe where you currently live? Yes 09/11/2024 Within the past 12 months, h ave you been hit, slapped, kicked or otherwise physically hurt by someone? No 09/11/2024 Within the past 12 months, h ave you been humiliated or emotionally abused in other ways by your partner or ex-partner? No 09/11/2024 Sex and Gender Information Value Date Recorded Sex Assigned at Not on file Legal Sex Male 1:28 PM CDT Gender Identity Not on file Sexual Orientation Not on file documented as of this encounter Last Filed Vital Signs Vital Sign Reading Time Taken Comments Blood Pressure 116/64 09/11/2024 10:05 AM CDT Pulse 81 09/11/2024 10:05 AM CDT Temperature 36.4 C (97.5 F) 09/11/2024 10:05 AM CDT Respiratory Rate 20 09/11/2024 10:0 5 AM CDT Oxygen Saturation 98% 09/11/2024 10: 05 AM CDT Inhaled Oxygen Concentration - - Weight 64.4 kg (141 lb 15.6 oz) 025 10:05 AM CDT Height 174 cm (5' 8.5) 09/11/2024 10:0 5 AM CDT Body Mass Index 21.27 09/11/2024 10:05 AM CDT documented in this encounter Discharge Summaries * Vinayak Zhu MD - 09/14/2024 2:35 PM CDT ORTHOPEDIC SURGERY DISCHARGE SUMMARY Date of Admission: 09/11/2024 Date of Discharge: 09/14/2024 2:35 PM Disposition: Home Staff Physician: No att. providers found Primary Care Provider: Nicolette Parikh DISCHARGE DIAGNOSIS: Cyst of lumbar facet joint [M71.38] Spinal stenosis of lumbar region with neurogenic claudication [M48.062] PROCEDURES: Procedure(s): Lumbar 5 to Sacral 1 Decompression on 09/11/2024 BRIEF HISTORY: This is a 83 year old patient who has been followed in clinic. Please refer to that documentation for full details. Briefly, the patient has lumbar facet cyst. The patient has failed conservative treatment of symptoms and desires more definitive intervention. Therefore, after reviewing non-operative and operative options including the risks and benefits associated with each, the patient elected to proceed with the above stated procedure. HOSPITAL COURSE: The patient was admitted following the above listed procedures for pain control and rehabilitation.Luis Markham did well post-operatively. Medicine was consulted post operatively to aid in management of medical co-morbidities. The patient received routine nursing cares and at the time of discharge was medically stable. Vital signs were stable throughout admission. The patient is tolerating aregular diet and is voiding spontaneously. All PT/OT goals have been met for safe mobility. Pain isnow controlled on oral medications which will be available on discharge. Stool softeners have been used while taking pain medications to help prevent constipation. Luis Markham is deemed medically safe to discharge. Antibiotics: Ancef given periop and 24 hours postop. DVT prophylaxis: SCD PT Progress: Has met PT/OT goals for safe mobility. Pain Meds: Weaned off all IV pain meds by discharge. Inpatient Events: No significant postoperative events or complications. PHYSICAL EXAM: General: NAD. Resting comfortably in bed. Respiratory: Breathing comfortably on RA. Drain Output: 5/10ml Musculoskeletal: Bandages clean and dry. Motor Strength Right Left Hip flexion: L1, L2, L3 4/5 4/5 Hip adduction: L2, L3 4/5 4/5 Knee flexion: S1 4/5 4/5 Knee extension: L3, L4 5/5 5/5 Ankle dosiflexion: L4, L5 5/5 5/5 EHL: L5 5/5 5/5 Ankle plantarflexion: S1 5/5 5/5 Sensation from L1-S2 is preserved. FOLLOWUP: Future Appointments Date Time Provider Department Center 10/28/2024 12:50 PM Jorge A Storey MD [facility] 01/02/2025 10:45 AM Sydney Huff DO [facility] Orthopedic Surgery appointments are at the [facility] ([address] [place] [address]). Call [phone] to schedule a follow-up appointment at this location with your provider. PLANNED DISCHARGE ORDERS: Discharge Medication List as of 09/14/2024 2:07 PM CONTINUE these medications which have NOT CHANGED Details Ascorbic Acid (VITAMIN C) 500 MG CAPS Take 1 tablet by mouth daily., Historical hydroxyurea (HYDREA) 500 MG capsule Take 500 mg by mouth every evening, Historical morphine (MS CONTIN) 15 MG CR tablet Take 1 tablet by mouth every 12 hours., Historical oxyCODONE (ROXICODONE) 5 MG tablet Take 15 mg by mouth 3 times daily as needed for breakthrough pain., Historical prochlorperazine (COMPAZINE) 5 MG tablet Take 5 mg by mouth 2 times daily., Historical sennosides (SENOKOT) 8.6 MG tablet Take 2 tablets by mouth at bedtime., Historical Discharge Procedure Orders Discharge Instructions Order Comments: Review outpatient procedure discharge instructions as directed by Provider. Discharge Instructions - Change dressing Order Comments: Wash hands prior to changing dressing daily. If no drainage on dressing, may leave open to air. No driving or operating machinery while in a cervical collar Order Comments: Until follow-up appointment. Reason for your hospital stay Order Comments: Spine surgery When to call - Contact Surgeon Team Order Comments: You may experience symptoms that require follow-up before your scheduled appointment. Refer to the [employer] for instructions on when to contact your Surgeon Team if you are concerned about pain control, blood clots, constipation, or if you are unable to urinate. When to call - Reach out to Urgent Care Order Comments: If you are not able to reach your Surgeon Team and you need immediate care, go to the Orthopedic Walk-in Clinic or Urgent Care at your Surgeon's office. Do NOT go to the Emergency Room unless you have shortness of breath, chest pain, or other signs of a medical emergency. When to call - Reasons to Call 911 Order Comments: Call 911 immediately if you experience sudden-onset chest pain, arm weakness/numbness, slurred speech, or shortness of breath Discharge Instruction - Breathing exercises Order Comments: Perform breathing exercises 10 times per hours while awake for 2 weeks. (If given, use your Incentive Spirometer) Symptoms - Fever Management Order Comments: A low grade fever can be expected after surgery. Use acetaminophen (TYLENOL) as needed for fever management. Contact your Surgeon Team if you have a fever greater than 101.5 F, chills, and/or night sweats. Symptoms - Constipation management Order Comments: Constipation (hard, dry bowel movements) is expected after surgery due to the combination of being less active, the anesthetic, and the opioid pain medication. You can do the following to help reduce constipation: ~ FLUIDS: Drink clear liquids (water or Gatorade), or juice (apple/prune). ~ DIET: Eat a fiber rich diet. ~ ACTIVITY: Get up and move around several times a day. Increase your activity as you are able. MEDICATIONS: Reduce the risk of constipation by starting medications before you are constipated. You can take Miralax (1 packet as directed) and/or a stool softener (Senokot 1-2 tablets 1-2 times a day). If you already have constipation and these medications are not working, you can get magnesium citrate and use as directed. If you continue to have constipation you can try an over the counter suppository or enema. Call your Surgeon Team if it has been greater than 3 days since your last bowel movement. Symptoms - Reduced Urine Output Order Comments: Changes in the amount of fluids you drank before and after surgery may result in problems urinating. It is important to stay well-hydrated after surgery and drink plenty of water. If it has been greater than 8 hours since you have urinated despite drinking plenty of water, call yourSurgeon Team. Activity - Exercises to prevent blood clots Order Comments: Unless otherwise directed by your Surgeon team, perform the following exercises at least three times per day for the first four weeks after surgery to prevent blood clots in your legs: 1) Point and flex your feet (Ankle Pumps), 2) Move your ankle around in big circles, 3) Wiggle your toes, 4) Walk, even for short distances, several times a day, will help decrease the risk of bloodclots. Order Specific Question Answer Comments Is discharge order? Yes Comfort and Pain Management - Pain after Surgery Order Comments: Pain after surgery is normal and expected. You will have some amount of pain for several weeks after surgery. Your pain will improve with time. There are several things you can do to help reduce your pain including: rest, ice, elevation, and using pain medications as needed. Contactyour Surgeon Team if you have pain that persists or worsens after surgery despite rest, ice, elevation, and taking your medication(s) as prescribed. Contact your Surgeon Team if you have new numbness, tingling, or weakness in your operative extremity. Comfort and Pain Management - Swelling after Surgery Order Comments: Swelling and/or bruising of the surgical extremity is common and may persist for several months after surgery. In addition to frequent icing and elevation, gentle compressive support with an ADRIAN wrap or tubigrip may help with swelling. Apply compression regularly, removing at least twice daily to perform skin checks. Contact your Surgeon Team if your swelling increases and is NOT associated with an increase in your activity level, or if your swelling increases and is associated with redness and pain. Comfort and Pain Management - Cold therapy Order Comments: Ice can be used to control swelling and discomfort after surgery. Place a thin towel over your operative site and apply the ice pack overtop. Leave ice pack in place for 20 minutes, then remove for 20 minutes. Repeat this 20 minutes on/20 minutes off routine as often as tolerated. Medication Instructions - Acetaminophen (TYLENOL) Instructions Order Comments: You were discharged with acetaminophen (TYLENOL) for pain management after surgery.Acetaminophen most effectively manages pain symptoms when it is taken on a schedule without missingdoses (every four, six, or eight hours). Your Provider will prescribe a safe daily dose between 3000 - 4000 mg. Do NOT exceed this daily dose. Most patients use acetaminophen for pain control for thefirst four weeks after surgery. You can wean from this medication as your pain decreases. Medication Instructions - NSAID Instructions Order Comments: You were discharged with an anti-inflammatory medication for pain management to usein combination with acetaminophen (TYLENOL) and the narcotic pain medication. Take this medication exactly as directed. You should only take one anti-inflammatory at a time. Some common anti-inflammatories include: ibuprofen (ADVIL, MOTRIN), naproxen (ALEVE, NAPROSYN), celecoxib (CELEBREX), meloxicam (MOBIC), ketorolac (TORADOL). Take this medication with food and water. Medication instructions - No pharmacologic VTE prophylaxis prescribed Order Comments: Your Surgeon did not prescribe medication for anticoagulation. Follow Up ([facility]) Order Comments: Follow up with Dr. Storey 10/28/24 Appointments on [place] and/or [facility] (with [facility] or [facility] provider or service). Call [phone] if you haven't heard regarding these appointments within 7 days of discharge. Discharge Instruction - Regular Diet Adult Order Comments: Return to your pre-surgery diet unless instructed otherwise Order Specific Question Answer Comments Is discharge order? Yes Orthopedic surgery staff for this patient is Dr. Storey. Discussed. -- Vinayak Hooker MD Spine Fellow Cosigned by Jorge A Storey MD at 09/16/2024 8:52 AM CDT Associated attestation - Jorge A Storey MD - 09/16/2024 8:52 AM CDT ctm documented in this encounter Discharge Instructions * Discharge Instructions* Vinayak Zhu MD - 09/14/2024 11:36 AM CDT POSTOPERATIVE CARES: Dressing cares: May shower with dressing in place. Do not submerge surgical site. No creams or lotions at surgical site. May apply cold packs or ice packs for 15 minutes of every hour to help with pain and inflammation Dressing to remain in place for 5-7 days There is a clear glue over incision. Apply petroleum jelly or vaseline to deactivate the skin glue which will allow the mesh to be easily removed in 12-24 hours. If clear suture tails are seen at theends of incisions these can be clipped at the skin level with clean scissors or nail clippers. No additional wound cares are needed. ACTIVITY RESTRICTIONS: No repetitive bending, twisting or lifting for 6 weeks. No lifting greater than 10 lbs for 6 weeks. On recovery exercise needed for first 6 weeks is walking as tolerated. Encourage getting up and walking every 1-2 hours even if only for short distances. Will return to clinic in 6 weeks. documented in this encounter Medications at Time of Discharge Ascorbic Acid (VITAMIN C) 500 MG CAPS Take 1 tablet by mouth daily. hydroxyurea (HYDREA) 500 MG capsule Take 500 mg by mouth every evening 08/20/2024 morphine (MS CONTIN) 15 MG CR tablet Take 1 tablet by mouth every 12 hours. 08/21/2024 oxyCODONE (ROXICODONE) 5 MG tablet Take 15 mg by mouth 3 times daily as needed for breakthrough pain. 07/18/2024 prochlorperazine (COMPAZINE) 5 MG tablet Take 5 mg by mouth 2 times daily. 09/02/2024 sennosides (SENOKOT) 8.6 MG tablet Take 2 tablets by mouth at bedtime. documented as of this encounter Progress Notes * Vinayak Zhu MD - 09/14/2024 9:00 AM CDT Orthopedic Surgery Progress Note: L5-S1 Laminectomy, Right sided cyst removal 09/11/24 Subjective: No acute events overnight. Pain well-controlled. Tolerating a clear diet. Not yet moving bowels, +flatus. No new concerns or complaints. Objective: BP 119/70 (BP Location: Right arm) Pulse 67 Temp 97.8 ??F (36.6 ??C) (Oral) Resp 17 Ht 1.74m (5' 8.5) Wt 64.4 kg (141 lb 15.6 oz) SpO2 95% BMI 21.27 kg/m?? No intake/output data recorded. General: NAD. Resting comfortably in bed. Respiratory: Breathing comfortably on RA. Drain Output: 5/10ml Musculoskeletal: Bandages clean and dry. Motor Strength Right Left Hip flexion: L1, L2, L3 4/5 4/5 Hip adduction: L2, L3 4/5 4/5 Knee flexion: S1 4/5 4/5 Knee extension: L3, L4 5/5 5/5 Ankle dosiflexion: L4, L5 5/5 5/5 EHL: L5 5/5 5/5 Ankle plantarflexion: S1 5/5 5/5 Sensation from L1-S2 is preserved. Laboratory Data: Lab Results Component Value Date WBC 5.8 09/12/2024 HGB 9.4 (L) 09/13/2024 PLT 308 09/12/2024 Assessment & Plan: Luis Markham is a 83 year old male with PMH including lumbar radiculopathy now s/p above procedure on 09/11/[address] Storey. Upon evaluation today patient found doing well postop Mentions that he has pain when moving but it is not too bad and could go home with some oral medications. Bandages. Clean. Patient with decreased output on drains. Plan is to remove them and discharge homefrom unit. [place] Primary Activity: Up with assist until independent No excessive bending or twisting. No lifting >10 lbs x 6 weeks. No Riddhi lift for transfers. Weight bearing status: WBAT. Pain management: Transition from IV to PO narcotics as tolerated. Antibiotics: Antibtioics until drains is removed Diet: Begin with clear fluids and progress diet as tolerated. DVT prophylaxis: SCDs only. No chemical DVT ppx needed. Imaging: None Labs: Hgb POD 1 Bracing/Splinting: None. Dressings: Keep bandage clean and dry. Drains: x1 Document output per shift, will be discontinued at Orthopedic Surgery discretion. Baker catheter: Remove POD#1. Physical Therapy/Occupational Therapy: Eval and treat Cultures: none. Consults: Hospitalist Follow-up: Clinic with Dr. Storey in 6 weeks with repeat x-rays. Disposition: Pending progress with therapies, pain control on orals, and medical stability, anticipate discharge to home on POD #2-3. Vinayak Hooker MD Spine Fellow PLEASE PAGE ME directly with any questions/concerns during regular weekday hours before 5 pm. If there is no response, if it is a weekend, or if it is during evening hours then please page the orthopedic surgery resident proposition player. FOLLOWUP: Future Appointments Date Time Provider Department Center 10/28/2024 12:50 PM Jorge A Storey MD [facility] 01/02/2025 10:45 AM Sydney Huff DO [facility] * Hesham Pak MD - 09/14/2024 7:19 AM CDT [facility] Medicine Progress Note - Hospitalist Service, GOLD TEAM 16 Date of Admission: 09/11/2024 Assessment & Plan Luis Markham is a 83 year old male admitted on 09/11/2024 after elective lumbar surgery. His past medical history os significant for essential tremor , thrombocytosis on hydroxyurea. Internal medicine was asked to see for medical comanagement. 09/14 - no changes from medicine standpoint - dispo pending drain removal, output decreased yesterday Lumbar radiculopathy s/p L5-S1 laminectomy with R sided cyst removal (09/11/24, Dr. Storey) Doing well post-op. Notably has a prior hx of DVT. Seen by PT on 09/12 recommending home with assist - Ortho primary Weight bearing status: WBAT. Pain management: Transition from IV to PO narcotics as tolerated. Antibiotics: Antibtioics until drains is removed Diet: Begin with clear fluids and progress diet as tolerated. DVT prophylaxis: SCDs only. No chemical DVT ppx needed. Imaging: None Labs: Hgb POD 1 Bracing/Splinting: None. Dressings: Keep bandage clean and dry. Drains: x1 Document output per shift, will be discontinued at Orthopedic Surgery discretion. Baker catheter: Remove POD#1. Physical Therapy/Occupational Therapy: Eval and treat Cultures: none. Consults: Hospitalist Follow-up: Clinic with Dr. Storey in 6 weeks with repeat x-rays. Disposition: Pending progress with therapies, pain control on orals, and medical stability, anticipate discharge to home on POD #2-3. - restarted on [employer]G [employer] PROVIDER MS contin 15 mg bid - pain managed Chronic pain - DOG [employer] PROVIDER MS contin restarted Essential tremor Polyneuropathy - stable History thrombocytosis - reports he follows with heme as outpatient and was put on hydroxyurea. Plts wnl here. - restart hydroxyurea when cleared from ortho standpoint - f/u with heme as outpatient History of DVT right lower extremities (2021) Provoked 2/2 trauma. Completed course of AC. - no longer on AC Diet: Regular Diet Adult DVT Prophylaxis: Defer to primary service Baker Catheter: Not present Lines: None Cardiac Monitoring: None Code Status: Full Code Clinically Significant Risk Factors Present on Admission # Anemia: based on hgb <11 Social Drivers of Health Tobacco Use: Medium Risk (09/11/2024) Patient History Smoking Tobacco Use: Former Smokeless Tobacco Use: Never Passive Exposure: Past Disposition Plan Medically Ready for Discharge: Anticipated Today Hesham Pak MD Hospitalist Service, [facility] TEAM [address] [place] [address] Securely message with [employer] (more info) Text page via [employer] Paging/Directory See signed in provider for up to date coverage information Interval History NOEs Physical Exam Vital Signs: Temp: 98 ??F (36.7 ??C) Temp src: Oral BP: 119/70 Pulse: 66 Resp: 16 SpO2: 96 % O2 Device: None (Room air) Weight: 141 lbs 15.62 oz General: NAD, laying in bed sleeping, awakes to voice Resp: CTAB, no w/r/r, no increased WOB CV: RRR, no m/r/g GI: soft, NTND MSK: moving all extremities spontaneously Ext: no BLE edema Medical Decision Making 40 MINUTES SPENT BY ME on the date of service doing chart review, history, exam, documentation & further activities per the note. Data PAST 24 HR DATA REVIEWED I have personally reviewed the following data over the past 24 hrs: N/A \ N/A / N/A N/A N/A N/A / N/A N/A N/A N/A \ Imaging results reviewed over the past 24 hrs: No results found for this or any previous visit (from the past 24 hours). * Vinayak Zhu MD - 09/13/2024 10:55 AM CDT Orthopedic Surgery Progress Note: L5-S1 Laminectomy, Right sided cyst removal 09/11/24 Subjective: No acute events overnight. Pain well-controlled. Tolerating a clear diet. Not yet moving bowels, +flatus. No new concerns or complaints. Objective: BP 122/68 (BP Location: Left arm) Pulse 66 Temp 97.9 ??F (36.6 ??C) (Oral) Resp 18 Ht 1.74 m (5' 8.5) Wt 64.4 kg (141 lb 15.6 oz) SpO2 95% BMI 21.27 kg/m?? I/O this shift: In: 200 [P.O.:200] Out: 0 General: NAD. Resting comfortably in bed. Respiratory: Breathing comfortably on RA. Drain Output: 135ml Musculoskeletal: Bandages clean and dry. Motor Strength Right Left Hip flexion: L1, L2, L3 4/5 4/5 Hip adduction: L2, L3 4/5 4/5 Knee flexion: S1 4/5 4/5 Knee extension: L3, L4 5/5 5/5 Ankle dosiflexion: L4, L5 5/5 5/5 EHL: L5 5/5 5/5 Ankle plantarflexion: S1 5/5 5/5 Sensation from L1-S2 is preserved. Laboratory Data: Lab Results Component Value Date WBC 5.8 09/12/2024 HGB 9.4 (L) 09/13/2024 PLT 308 09/12/2024 Images: No new images were obtained. Assessment & Plan: Luis Markham is a 83 year old male with PMH including lumbar radiculopathy now s/p above procedure on 09/11/[address] Storey. Upon evaluation today patient found doing well postop Mentions that he has pain when moving but it is not too bad and could go home with some oral medications. Bandages. Clean. For now patient still has a somewhat high output from drain. Will continue to monitor for upcoming shifts to see if they are ready to be removed. [place] Primary Activity: Up with assist until independent No excessive bending or twisting. No lifting >10 lbs x 6 weeks. No Riddhi lift for transfers. Weight bearing status: WBAT. Pain management: Transition from IV to PO narcotics as tolerated. Antibiotics: Antibtioics until drains is removed Diet: Begin with clear fluids and progress diet as tolerated. DVT prophylaxis: SCDs only. No chemical DVT ppx needed. Imaging: None Labs: Hgb POD 1 Bracing/Splinting: None. Dressings: Keep bandage clean and dry. Drains: x1 Document output per shift, will be discontinued at Orthopedic Surgery discretion. Baker catheter: Remove POD#1. Physical Therapy/Occupational Therapy: Eval and treat Cultures: none. Consults: Hospitalist Follow-up: Clinic with Dr. Storey in 6 weeks with repeat x-rays. Disposition: Pending progress with therapies, pain control on orals, and medical stability, anticipate discharge to home on POD #2-3. Vinayak Hooker MD Spine Fellow PLEASE PAGE ME directly with any questions/concerns during regular weekday hours before 5 pm. If there is no response, if it is a weekend, or if it is during evening hours then please page the orthopedic surgery resident proposition player. FOLLOWUP: Future Appointments Date Time Provider Department Center 10/28/2024 12:50 PM Jorge A Storey MD [facility] 01/02/2025 10:45 AM Sydney uHff DO [facility] * Hesham Pak MD - 09/13/2024 8:06 AM CDT [facility] Medicine Progress Note - Hospitalist Service, [facility] TEAM 16 Date of Admission: 09/11/2024 Assessment & Plan Luis Markham is a 83 year old male admitted on 09/11/2024 after elective lumbar surgery. His past medical history os significant for essential tremor , thrombocytosis on hydroxyurea. Internal medicine was asked to see for medical comanagement. 09/13: - no major changes from internal medicine standpoint - ongoing output from drain Lumbar radiculopathy s/p L5-S1 laminectomy with R sided cyst removal (09/11/24, Dr. Storey) Doing well post-op. Notably has a prior hx of DVT. Seen by PT on 09/12 recommending home with assist - Ortho primary Weight bearing status: WBAT. Pain management: Transition from IV to PO narcotics as tolerated. Antibiotics: Antibtioics until drains is removed Diet: Begin with clear fluids and progress diet as tolerated. DVT prophylaxis: SCDs only. No chemical DVT ppx needed. Imaging: None Labs: Hgb POD 1 Bracing/Splinting: None. Dressings: Keep bandage clean and dry. Drains: x1 Document output per shift, will be discontinued at Orthopedic Surgery discretion. Baker catheter: Remove POD#1. Physical Therapy/Occupational Therapy: Eval and treat Cultures: none. Consults: Hospitalist Follow-up: Clinic with Dr. Storey in 6 weeks with repeat x-rays. Disposition: Pending progress with therapies, pain control on orals, and medical stability, anticipate discharge to home on POD #2-3. - restarted on DOG DAYCARE PROVIDER MS contin 15 mg bid Chronic pain - DOG DAYCARE PROVIDER MS contin restarted Essential tremor Polyneuropathy - stable History thrombocytosis - reports he follows with heme as outpatient and was put on hydroxyurea. Plts wnl here. - restart hydroxyurea when cleared from ortho standpoint - f/u with heme as outpatient History of DVT right lower extremities (2021) Provoked 2/2 trauma. Completed course of AC. - no longer on AC Diet: Regular Diet Adult DVT Prophylaxis: Defer to primary service Baker Catheter: Not present Lines: None Cardiac Monitoring: None Code Status: Full Code Clinically Significant Risk Factors Present on Admission # Anemia: based on hgb <11 Social Drivers of Health Tobacco Use: Medium Risk (09/11/2024) Patient History Smoking Tobacco Use: Former Smokeless Tobacco Use: Never Passive Exposure: Past Disposition Plan Medically Ready for Discharge: Anticipated Tomorrow Hesham Pak MD Hospitalist Service, [address] Securely message with [employer] (more info) Text page via [facility] Paging/Directory See signed in provider for up to date coverage information Interval History Reported pain overnight Ok during day and with PT but worse at night Physical Exam Vital Signs: Temp: 97.3 ??F (36.3 ??C) Temp src: Oral BP: 133/70 Pulse: 66 Resp: 18 SpO2: 97 % O2 Device: None (Room air) Weight: 141 lbs 15.62 oz General: NAD, laying in bed resting, awakes to voice Resp: CTAB, no w/r/r, no increased WOB CV: RRR, no m/r/g GI: soft, NTND MSK: moving all extremities spontaneously Ext: no BLE edema Neuro: AOx4, no focal neuro deficits Medical Decision Making 50 MINUTES SPENT BY ME on the date of service doing chart review, history, exam, documentation & further activities per the note. Data PAST 24 HR DATA REVIEWED I have personally reviewed the following data over the past 24 hrs: N/A \ 9.4 (L) / N/A N/A N/A N/A / N/A N/A N/A N/A \ Imaging results reviewed over the past 24 hrs: No results found for this or any previous visit (from the past 24 hours). * Vonda Vizcarra, PT - 09/12/2024 11:07 AM CDT 09/12/24 0818 Appointment Info Signing Clinician's Name / Credentials (PT) Austin Maxwell SPT Student Supervision Direct supervision provided Rehab Comments (PT) spine px Living Environment People in Home spouse Current Living Arrangements house Home Accessibility stairs to enter home;stairs within home Number of Stairs, Main Entrance 6 (Pt has 6 steps in) Stair Railings, Main Entrance railings safe and in good condition;railings on both sides of stairs (Pt cannot reach both railings at the same time.) Number of Stairs, Within Home, Primary ten Stair Railings, Within Home, Primary railings safe and in good condition;railings on both sides of stairs (spiral staircase) Transportation Anticipated family or friend will provide Living Environment Comments Pt lives with in a 3 level home. Pt has stairs to get into his house and could stay on the main level if needed with all needs met on that floor. Pt has spiral staircase to get up to his bedroom. Self-Care Usual Activity Tolerance moderate Current Activity Tolerance fair Regular Exercise No Equipment Currently Used at Home none Fall history within last six months no Activity/Exercise/Self-Care Comment Pt was IND with all ADL's prior to surgery. Pt has a tub showerat home. Pt reports he was previously doing exercises to help with his back pain. General Information Onset of Illness/Injury or Date of Surgery 09/11/24 Referring Physician Jorge A Storey MD Patient/Family Therapy Goals Statement (PT) none listed Pertinent History of Current Problem (include personal factors and/or comorbidities that impact thePOC) Per chart review,Luis Markham is a 83 year old male admitted on 09/11/2024 after elective lumbar surgery. His past medical history os significant for essential tremor , thrombocytosis on hydr oxyurea. Pt is s/p L5-S1 Laminectomy, Right sided cyst removal. Existing Precautions/Restrictions fall;spinal Weight-Bearing Status - LUE partial weight-bearing (% in comments) (10 lbs) Weight-Bearing Status - RUE partial weight-bearing (% in comments) (10 lbs) Weight-Bearing Status - LLE full weight-bearing Weight-Bearing Status - RLE full weight-bearing General Observations Pt was supine in bed upon arrival. Cognition Affect/Mental Status (Cognition) WFL Follows Commands (Cognition) WFL;repetition of directions required Pain Assessment Patient Currently in Pain Yes, see Vital Sign flowsheet Integumentary/Edema Integumentary/Edema other (describe) Integumentary/Edema Comments Not observed, covered by bandage. Posture Posture Forward head position;Protracted shoulders Range of Motion (ROM) Range of Motion ROM deficits secondary to surgical procedure Strength (Manual Muscle Testing) Strength (Manual Muscle Testing) strength is WFL Bed Mobility Bed Mobility supine-sit Supine-Sit Holderness (Bed Mobility) verbal cues;supervision Assistive Device (Bed Mobility) bed rails Transfers Transfers sit-stand transfer Sit-Stand Transfer Sit-Stand Holderness (Transfers) verbal cues;contact guard Gait/Stairs (Locomotion) Holderness Level (Gait) contact guard Assistive Device (Gait) walker, front-wheeled Distance in Feet (Gait) 5' Pattern (Gait) step-through Deviations/Abnormal Patterns (Gait) base of support, narrow;leila decreased;stride length decreased Balance Balance no deficits were identified Sensory Examination Sensory Perception patient reports no sensory changes Coordination Coordination no deficits were identified Muscle Tone Muscle Tone no deficits were identified Clinical Impression Criteria for Skilled Therapeutic Intervention Yes, treatment indicated PT Diagnosis (PT) impaired functional mobility Influenced by the following impairments Pt has decreased activity tolerance secondary to surgical procedure. Functional limitations due to impairments bed mobility, transfers, gait, stairs Clinical Presentation (PT Evaluation Complexity) stable Clinical Presentation Rationale per clinical judement Clinical Decision Making (Complexity) low complexity Planned Therapy Interventions (PT) bed mobility training;gait training;patient/family education;stair training;transfer training;progressive activity/exercise;risk factor education Risk & Benefits of therapy have been explained evaluation/treatment results reviewed;care plan/treatment goals reviewed;risks/benefits reviewed;current/potential barriers reviewed;participants voiced agreement with care plan;participants included;patient PT Total Evaluation Time PT Eval, Low Complexity Minutes (05547) 10 Therapy Certification Start of care date 09/12/24 Certification date from 09/12/24 Certification date to 09/19/24 Medical Diagnosis s/p L5-S1 Laminectomy, Right sided cyst removal Physical Therapy Goals PT Frequency Daily PT Predicted Duration/Target Date for Goal Attainment 09/19/24 PT Goals Bed Mobility;Transfers;Gait;Stairs PT: Bed Mobility Independent;Supine to/from sit;Within precautions PT: Transfers Modified independent;Sit to/from stand;Assistive device PT: Gait Modified independent;Assistive device;Greater than 200 feet PT: Stairs Modified independent;Rail on both sides;Greater than 10 stairs (16 stairs) Interventions Interventions Quick Adds Therapeutic Activity Therapeutic Activity Therapeutic Activities: dynamic activities to improve functional performance Minutes (80013) 30 Symptoms Noted During/After Treatment Increased pain Treatment Detail/Skilled Intervention Increased time for line management. Pt educ on WBAT and spineprecautions. After eval, patient reported he needed to use the bathroom. Pt ambulated with FWW at CGA progressing to SBA x 7 feet. Pt was CGA for standing>seated toilet transfer with FWW. Pt was IND with ev cares. Pt performed STS from toilet. Pt was SBA for washing hands at the sink. Pt amb x 12' with FWW at SBA to EOB. Pt standing>seated at EOB SBA. Pt was SBA for seated>supine transfer, vcs for log roll technique. Pt was supine in bed at end of session with all needs met. PT Discharge Planning PT Plan Continue skilled PT for bed mobility, transfers, gait and trail stairs. Assess for OT needs. PT Discharge Recommendation (DC Rec) home with assist PT Rationale for DC Rec Pt is amb with Ax1 for all mobility. Pt was IND with all mobility without and AD at baseline. Pending pt progresses well with PT, pt should have no barriers to returning home.Will continue to reassess pt. PT Brief overview of current status Pt is SBA with FWW PT Total Distance Amb During Session (feet) 24 PT Equipment Needed at Discharge shower chair;walker, rolling Physical Therapy Time and Intention Timed Code Treatment Minutes 30 Total Session Time (sum of timed and untimed services) 40 M [facility] OUTPATIENT PHYSICAL THERAPY PLAN OF TREATMENT FOR OUTPATIENT REHABILITATION Patient's Last Name, First Name, Luis Combs Date of : 1940 Provider's Name [facility] Onset Date: 09/11/24 Start of Care Date: (P) 09/12/24 Medical Diagnosis: (P) s/p L5-S1 Laminectomy, Right sided cyst removal PT Diagnosis: impaired functional mobility Certification Dates: From: (P) 09/12/24 To: (P) 09/19/24 See note for plan of treatment, functional goals, and certification details. I CERTIFY THE NEED FOR THESE SERVICES FURNISHED UNDER THIS PLAN OF TREATMENT AND WHILE UNDER MY CARE (Physician co-signature of this document indicates review and certification of the therapy plan). 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 I personally reviewed the vital signs and medications. Truman Rojo NP Date of Service (when I saw the patient): 09/12/24 * Hesham Pak MD - 09/12/2024 8:18 AM CDT [facility] Medicine Progress Note - Hospitalist Service, [facility] TEAM 16 Date of Admission: 09/11/2024 Assessment & Plan Luis Markham is a 83 year old male admitted on 09/11/2024 after elective lumbar surgery. His past medical history os significant for essential tremor , thrombocytosis on hydroxyurea Internal medicine was asked to see for medical comanagement Lumbar radiculopathy s/p L5-S1 laminectomy with R sided cyst removal (09/11/24, Dr. Storey) Doing well post-op. Notably has a prior hx of DVT. Pain controlled but has not been OOB yet this AM. - Ortho primary Weight bearing status: WBAT. Pain management: Transition from IV to PO narcotics as tolerated. Antibiotics: Antibtioics until drains is removed Diet: Begin with clear fluids and progress diet as tolerated. DVT prophylaxis: SCDs only. No chemical DVT ppx needed. Imaging: None Labs: Hgb POD 1 Bracing/Splinting: None. Dressings: Keep bandage clean and dry. Drains: x1 Document output per shift, will be discontinued at Orthopedic Surgery discretion. Baker catheter: Remove POD#1. Physical Therapy/Occupational Therapy: Eval and treat Cultures: none. Consults: Hospitalist Follow-up: Clinic with Dr. Storey in 6 weeks with repeat x-rays. Disposition: Pending progress with therapies, pain control on orals, and medical stability, anticipate discharge to home on POD #2-3. - restarted on DOG DAYCARE PROVIDER MS contin 15 mg bid Chronic pain - DOG DAYCARE PROVIDER MS contin restarted Essential tremor Polyneuropathy - stable History thrombocytosis - reports he follows with heme as outpatient and was put on hydroxyurea. Plts wnl here. - restart hydroxyurea when cleared from ortho standpoint - f/u with heme as outpatient History of DVT right lower extremities (2021) Provoked 2/2 trauma. Completed course of AC. - no longer on AC Diet: Regular Diet Adult DVT Prophylaxis: Defer to primary service Baker Catheter: Not present Lines: None Cardiac Monitoring: None Code Status: Full Code Clinically Significant Risk Factors Present on Admission # Anemia: based on hgb <11 Social Drivers of Health Tobacco Use: Medium Risk (09/11/2024) Patient History Smoking Tobacco Use: Former Smokeless Tobacco Use: Never Passive Exposure: Past Disposition Plan Medically Ready for Discharge: Anticipated in 2-4 Days Hesham Pak MD Hospitalist Service, [facility] TEAM 16 [facility] Securely message with [employer] (more info) Text page via [facility] Paging/Directory See signed in provider for up to date coverage information Interval History Admitted overnight Some pain currently but controlled on pain meds Physical Exam Vital Signs: Temp: 97.7 ??F (36.5 ??C) Temp src: Oral BP: 124/66 Pulse: 75 Resp: 16 SpO2: 95 % O2 Device: None (Room air) Oxygen Delivery: 2 LPM Weight: 141 lbs 15.62 oz General: NAD, sitting in bed eating breakfast Resp: CTAB, no w/r/r, no increased WOB CV: RRR, no m/r/g GI: soft, NTND MSK: moving all extremities spontaneously Ext: no BLE edema Neuro: AOx4, no focal neuro deficits Medical Decision Making 60 MINUTES SPENT BY ME on the date of service doing chart review, history, exam, documentation & further activities per the note. Data PAST 24 HR DATA REVIEWED I have personally reviewed the following data over the past 24 hrs: 5.8 \ 9.1 (L) / 308 N/A N/A N/A / N/A N/A N/A 0.76 \ Imaging results reviewed over the past 24 hrs: Recent Results (from the past 24 hours) XR Lumbar Spine Port 1 View Narrative This exam was marked as non-reportable because it will not be read by a radiologist or a [place] non-radiologist provider. * Vinayak Zhu MD - 09/12/2024 8:08 AM CDT Orthopedic Surgery Progress Note: L5-S1 Laminectomy, Right sided cyst removal 09/11/24 Subjective: No acute events overnight. Pain well-controlled. Tolerating a clear diet. Baker in place. Not yet moving bowels, +flatus. No new concerns or complaints. Objective: BP 124/66 Pulse 75 Temp 97.7 ??F (36.5 ??C) (Oral) Resp 16 Ht 1.74 m (5' 8.5) Wt 64.4 kg(141 lb 15.6 oz) SpO2 95% BMI 21.27 kg/m?? No intake/output data recorded. General: NAD. Resting comfortably in bed. Respiratory: Breathing comfortably on RA. Drain Output: Not charted Musculoskeletal: Bandages clean and dry. Motor Strength Right Left Hip flexion: L1, L2, L3 4/5 4/5 Hip adduction: L2, L3 4/5 4/5 Knee flexion: S1 4/5 4/5 Knee extension: L3, L4 5/5 5/5 Ankle dosiflexion: L4, L5 5/5 5/5 EHL: L5 5/5 5/5 Ankle plantarflexion: S1 5/5 5/5 Sensation from L1-S2 is preserved. Laboratory Data: Lab Results Component Value Date WBC 5.8 09/12/2024 HGB 9.1 (L) 09/12/2024 PLT 308 09/12/2024 Assessment & Plan: Luis Markham is a 83 year old male with PMH including lumbar radiculopathy now s/p above procedure on 09/11/[address] Storey. Upon evaluation today patient found doing well postop Mentions his pain level is not egregious but has not attempted to get out of bed yet. Bandages. Clean. Goal is to monitor drain output that was not charted this morning, and get out of bed and mobilize. Will follow pain levels. [place] Primary Activity: Up with assist until independent No excessive bending or twisting. No lifting >10 lbs x 6 weeks. No Riddhi lift for transfers. Weight bearing status: WBAT. Pain management: Transition from IV to PO narcotics as tolerated. Antibiotics: Antibtioics until drains is removed Diet: Begin with clear fluids and progress diet as tolerated. DVT prophylaxis: SCDs only. No chemical DVT ppx needed. Imaging: None Labs: Hgb POD 1 Bracing/Splinting: None. Dressings: Keep bandage clean and dry. Drains: x1 Document output per shift, will be discontinued at Orthopedic Surgery discretion. Baker catheter: Remove POD#1. Physical Therapy/Occupational Therapy: Eval and treat Cultures: none. Consults: Hospitalist Follow-up: Clinic with Dr. Storey in 6 weeks with repeat x-rays. Disposition: Pending progress with therapies, pain control on orals, and medical stability, anticipate discharge to home on POD #2-3. Vinayak Hooker MD Spine Fellow PLEASE PAGE ME directly with any questions/concerns during regular weekday hours before 5 pm. If there is no response, if it is a weekend, or if it is during evening hours then please page the orthopedic surgery resident proposition player. FOLLOWUP: Future Appointments Date Time Provider Department Center 09/12/2024 2:15 PM Vonda Vizcarra, PT [facility] 10/28/2024 12:50 PM Jorge A Storey MD [facility] 01/02/2025 10:45 AM Sydney Huff DO [facility] * Dane Mcgarry RN - 09/11/2024 6:24 PM CDT 5 Med/surg Admission Note Reason for admission: L5-S1 decompression Primary team notified of pt arrival. Admitted from: PACU Via: Pt transport Accompanied by: Spouse, son Belongings: Placed in closet; valuables sent home with family Admission Required Doc Completed: Yes/No Mobility Devices Utilized by Patient Provided (i.e. walker, wheelchair, etc.): Yes Teaching: Orientation to unit and call light- call light within reach, use of console, meal times, when to call for the RN, and enforced importance of safety. IV Access: L & R PIV SL Telemetry: Yes Ht./Wt.: Completed Code Status verified on armband: Yes 2 RN Skin Assessment Completed with: Ilir Patrick Suction/Ambu bag/Flowmeter at bedside: Yes Pt status: Stable Temp: [97 ??F (36.1 ??C)-97.7 ??F (36.5 ??C)] 97.5 ??F (36.4 ??C) Pulse: [65-84] 78 Resp: [11-24] 18 BP: (114-123)/(56-86) 121/58 SpO2: [95 %-100 %] 100 % documented in this encounter Consult Notes * Anne-Marie Hogan MD - 09/11/2024 8:55 PM CDTAssociated Order(s): INTERNAL MEDICINE ADULT IP CONSULT FOR [facility] Consult Note - Hospitalist ServiceBRIGID TEAM Date of Admission: 09/11/2024 Consult Requested by: Jorge A Storey MD Reason for Consult: comanegement Assessment & Plan Luis Markham is a 83 year old male admitted on 09/11/2024 after elective lumbar surgery. His past medical history os significant for essential tremor , thrombocytosis on hydroxyurea Internal medicine was asked to see for medical comanagement Procedure 09/11: Procedure: Procedure(s): Lumbar 5 to Sacral 1 Decompression Lumbar radiculopathy -status post above procedure - DVT ppx, and pain control activity per orthopedic surgery - has history of DVT so would recommend aggressive DVT PPX Chronic pain - on MS contin DOG DAYCARE PROVIDER , consider restarting , has PRN pain medications Essential tremor Polyneuropathy - mostly involves right History thrombocytosis -tells me me sees vascular technologist and is on hydroxyurea check CBC in AM and decide if can restart and would discussed with discussed with orthopedic surgery as well as it can impact wound healing . Lastplt count I can see in [facility] is way back from 2021 History of DVT right lower extremities in 2021 - sounds like was after trauma thus provoked - no longer on AC Clinically Significant Risk Factors Present on Admission Anne-Marie Hogan MD Hospitalist Service, GOLD TEAM Securely message with [employer] (more info) Text page via [facility] Paging/Directory See signed in provider for up to date coverage information Chief Complaint Back pain History is obtained from the patient and reviewing records in [facility] History of Present Illness Luis Markham is a 83 year old male admitted on 09/11/2024 after elective lumbar surgery. His past medical history os significant for essential tremor , thrombocytosis on hydroxyurea Denies any chest pain no shortness of breath , oxygen saturation 99% on 2 liters [place] , denies nauseavomiting. Having back pain and better if bends knees, denies any new numbness or weakness Past Medical History Past Medical History: Diagnosis Date Acute bronchitis Created by Conversion Closed fracture of acromial end of clavicle Created by Conversion Cyst of lumbar facet joint DVT (deep venous thrombosis) (H) 2021 Eczema Essential tremor Head injury Created by Conversion Replacement Utility updated for latest IMO load Hernia, umbilical 05/28/2002 History of colostomy reversal 05/28/2002 Spinal stenosis of lumbar region with neurogenic claudication Thrombocytosis Past Surgical History Past Surgical History: Procedure Laterality Date HC REMOVAL GALLBLADDER Description: Cholecystectomy; Recorded: 06/21/2010; Comments: July 2002 [place] LAP, VENTRAL HERNIA REPAIR,REDUCIBLE Description: Laparoscopy Repair Of Umbilical Hernia; Recorded: 06/21/2010; Comments: complicated byperforation of the bowel that went unrecognized and led to septic shock [place] LAP, VENTRAL HERNIA REPAIR,REDUCIBLE Description: Laparoscopy Repair Of Ventral Hernia; Recorded: 06/21/2010; Comments: September of 2009 whenexpander removed and mesh placed. [place] LAP,HERNIA REPAIR PROC,UNLIST Description: Laparoscopy Repair Of Hernia; Proc Date: 03/28/2003; Comments: [facility] Dr. [place] REMOVE MESH FROM ABD WALL FOR INFECTION Description: Debridement For Necrot Infect W/ Removal Of Mesh; Recorded: 06/21/2010; Comments: of ventral hernia Apr 2010 at [facility] APPENDECTOMY Description: Appendectomy; Recorded: 06/21/2010; Comments: 1956 [facility] APPENDECTOMY Description: Appendectomy; Proc Date: 05/28/1958; Comments: [place] [facility] PART REMOVAL COLON W ANASTOMOSIS Description: Partial Colectomy; Recorded: 06/21/2010; Comments: for benign mass May 2002 Medications I have reviewed this patient's current medications oxyCODONE (ROXICODONE) 5 MG tablet Reported, Patient Needs Review Ascorbic Acid (VITAMIN C) 500 MG CAPS Take by mouth daily. Reported, Patient Needs Review hydroxyurea (HYDREA) 500 MG capsule Take 500 mg by mouth every evening Reported, Patient Needs Review morphine (MS CONTIN) 15 MG CR tablet Take 1 tablet by mouth 2 times daily as needed. Reported, Patient Needs Review prochlorperazine (COMPAZINE) 5 MG tablet Take 5 mg by mouth every 6 hours as need Review of Systems The 10 point Review of Systems is negative other than noted in the HPI Social History I have reviewed this patient's social history and updated it with pertinent information if needed. Social History Tobacco Use Smoking status: Former Types: Cigarettes Passive exposure: Past Smokeless tobacco: Never Substance Use Topics Alcohol use: Not Currently Drug use: Never Family History I have reviewed this patient's family history and updated it with pertinent information if needed. Family History Problem Relation Age of Onset Alcoholism Father Allergies Allergies Allergen Reactions Amoxicillin Hives Possibly late reaction. Physical Exam Vital Signs: Temp: 97.8 ??F (36.6 ??C) Temp src: Oral BP: 118/58 Pulse: 77 Resp: 18 SpO2: 100 % O2 Device: Nasal cannula Oxygen Delivery: 2 LPM Weight: 141 lbs 15.62 oz General appearence: awake alert in no apparent distress HEENT: EOMI, PEARLA, sclera nonicteric, moist, mucus membranes, NECK : supple RESPIRATORY: lungs clear CARDIOVASCULAR:S1 S2 regular rate and rhythm, no rubs gallops , soft systolic murmur appreciated GASTROINTESTINAL:soft, non-distended has hernia with some tenderness , + bowel sounds SKIN: warm and dry, no mottling noted NEUROLOGIC; awake alert and oriented, tremor of right hand EXTREMITIES: no clubbing, cyanosis or edema Status post lumbar spine surgery, drain still in Data Imaging results reviewed over the past 24 hrs: Recent Results (from the past 24 hours) XR Lumbar Spine Port 1 View Narrative This exam was marked as non-reportable because it will not be read by a radiologist or a [place] non-radiologist provider. documented in this encounter Nursing Notes * Chiqui Ba RN - 09/11/2024 3:49 PM CDT Images from the original note were not included. PACU to Inpatient Nursing Handoff Patient Luis Markham is a 83 year old male who speaks Greenlandic. Procedure Procedure(s): Lumbar 5 to Sacral 1 Decompression Surgeon(s) Primary: Jorge A Storey MD Assisting: Bishop Jess Valderrama PA-C Fellow - Assisting: Vinayak Zhu MD Allergies Allergen Reactions Amoxicillin Hives Possibly late reaction. Isolation @ISOLATION@ Past Medical History has a past medical history of Acute bronchitis, Closed fracture of acromial end of clavicle, Cyst of lumbar facet joint, DVT (deep venous thrombosis) (H) (2021), Eczema, Essential tremor, Head injury, Hernia, umbilical (05/28/2002), History of colostomy reversal (05/28/2002), Spinal stenosis of lumbar region with neurogenic claudication, and Thrombocytosis. Anesthesia General Dermatome Level Preop Meds acetaminophen (Tylenol) - time given: 1109 gabapentin (Neurontin) - time given: 1109 Nerve block Not applicable Intraop Meds fentaNYL 50 mcg/mL (mcg) Total dose: 100 mcg Date/Time Rate/Dose/Volume Action Route Admin User Audit 09/11/24 1241 50 mcg Given Intravenous Jessica Reynolds APRN ASSOCIATE VICE PRESIDENT 1415 50 mcg Given Intravenous Jessica Velazquez APRN CRNA HYDROmorphone 1 mg/mL (mg) Total dose: 0.5 mg Date/Time Rate/Dose/Volume Action Route Admin User Audit 09/11/24 1422 0.5 mg Given Intravenous Shirilla, Jessica MAMBROSION ASSOCIATE VICE PRESIDENT lidocaine 2% (mg) Total dose: 60 mg Date/Time Rate/Dose/Volume Action Route Admin User Audit 09/11/24 1241 60 mg Given Intravenous Gail, Jessica Freeman APRN ASSOCIATE VICE PRESIDENT propofol 10 mg/mL (mg) Total dose: 130 mg Date/Time Rate/Dose/Volume Action Route Admin User Audit 09/11/24 1241 130 mg Given Intravenous Jessica Reynolds APRN ASSOCIATE VICE PRESIDENT ketamine 10 mg/mL (mg) Total dose: 50 mg Date/Time Rate/Dose/Volume Action Route Admin User Audit 09/11/24 1241 30 mg Given Intravenous Nybo, Jessica L WOOD FLOOR REFINISHER ASSOCIATE VICE PRESIDENT 1330 20 mg Given Intravenous Shirilla, Jessica M, WOOD FLOOR REFINISHER ASSOCIATE VICE PRESIDENT rocuronium 10 mg/mL (mg) Total dose: 50 mg Date/Time Rate/Dose/Volume Action Route Admin User Audit 09/11/24 1241 50 mg Given Intravenous Jessica Reynolds APRN ASSOCIATE VICE PRESIDENT ePHEDrine 5 mg/mL in NS (mg) Total dose: 25 mg Date/Time Rate/Dose/Volume Action Route Admin User Audit 09/11/24 1328 5 mg Given Intravenous Shirilla, Jessica M, WOOD FLOOR REFINISHER ASSOCIATE VICE PRESIDENT 1336 10 mg Given Intravenous Shirilla, Jessica M, WOOD FLOOR REFINISHER ASSOCIATE VICE PRESIDENT 1343 5 mg Given Intravenous Shirilla, Jessica M, WOOD FLOOR REFINISHER ASSOCIATE VICE PRESIDENT 1349 5 mg Given Intravenous Shirilla, Jessica M WOOD FLOOR REFINISHER ASSOCIATE VICE PRESIDENT phenylephrine (SHANON-SYNEPHRINE) injection (mcg) Total dose: 750 mcg Date/Time Rate/Dose/Volume Action Route Admin User Audit 09/11/24 1300 100 mcg New Bag Intravenous Nybo, Jessica L, WOOD FLOOR REFINISHER ASSOCIATE VICE PRESIDENT edited 1302 150 mcg New Bag Intravenous Nybo, Jessica L, WOOD FLOOR REFINISHER ASSOCIATE VICE PRESIDENT edited 1319 100 mcg Bolus Intravenous Nybo, Jessica L, WOOD FLOOR REFINISHER ASSOCIATE VICE PRESIDENT 1352 100 mcg Bolus Intravenous Shirilla, Jessica M, WOOD FLOOR REFINISHER ASSOCIATE VICE PRESIDENT 1401 100 mcg Bolus Intravenous Shirilla, Jessica M, WOOD FLOOR REFINISHER ASSOCIATE VICE PRESIDENT 1430 100 mcg Bolus Intravenous Shirilla, Jessica M, WOOD FLOOR REFINISHER ASSOCIATE VICE PRESIDENT 1446 100 mcg Bolus Intravenous Fellegy, Mattillukas A, WOOD FLOOR REFINISHER ASSOCIATE VICE PRESIDENT dexamethasone (DECADRON) 4 mg/mL (mg) Total dose: 8 mg Date/Time Rate/Dose/Volume Action Route Admin User Audit 09/11/24 1328 8 mg Given Intravenous Jessica Velazquez APRN CRNA ondansetron 2 mg/mL (mg) Total dose: 4 mg Date/Time Rate/Dose/Volume Action Route Admin User Audit 09/11/24 1410 4 mg Given Intravenous ZariaadaJessica APRN CRNA sugammadex (BRIDION) 200mg/2mL (mg) Total dose: 100 mg Date/Time Rate/Dose/Volume Action Route Admin User Audit 09/11/24 1450 100 mg Given Intravenous Luisana Lawson APRN CRNA tranexamic acid (CYKLOKAPRON) 1,930 mg in sodium chloride 0.9 % 50 mL bolus (mg) Total dose: 1,932 mg Dosing weight: 64.4 Date/Time Rate/Dose/Volume Action Route Admin User Audit 09/11/24 1300 1,932 mg New Bag Intravenous Jessica Reynolds APRN CRNA edited tranexamic acid (CYKLOKAPRON) 2 g in sodium chloride 0.9 % 100 mL infusion (mg/kg/hr) Total dose: 515.2 mg Dosing weight: 64.4 Date/Time Rate/Dose/Volume Action Route Admin User Audit 09/11/24 1324 10 mg/kg/hr - 32.2 mL/hr New Bag Intravenous Jessica Velazquez APRN CRNA edited 1412 Stopped Intravenous Jessica Velazquez APRN CRNA ceFAZolin Sodium (ANCEF) injection 2 g (g) Total dose: 2 g Dosing weight: 65.8 Date/Time Rate/Dose/Volume Action Route Admin User Audit 09/11/24 1241 2 g Given Intravenous Jessica Reynolds APRN CRNA dexmedeTOMIDine (PRECEDEX) 4 mcg/mL bolus (mcg) Total dose: 8 mcg Date/Time Rate/Dose/Volume Action Route Admin User Audit 09/11/24 1241 8 mcg New Bag Intravenous Jessica Reynolds APRN CRNA phenylephrine 0.1 mg/mL infusion (mcg/kg/min) (mcg/kg/min) Total dose: 0.31 mg Dosing weight: 64.4 Date/Time Rate/Dose/Volume Action Route Admin User Audit 09/11/24 1403 0.3 mcg/kg/min - 11.592 mL/hr New Bag Intravenous Shirada, Jessica M, WOOD FLOOR REFINISHER ASSOCIATE VICE PRESIDENT 1419 Stopped Intravenous Jessica Velazquez, WOOD FLOOR REFINISHER ASSOCIATE VICE PRESIDENT LR (mL) Total volume: 1,400 mL Date/Time Rate/Dose/Volume Action Route Admin User Audit 09/11/24 1234 New Bag Intravenous Jessica Reynolds, WOOD FLOOR REFINISHER ASSOCIATE VICE PRESIDENT 1336 1,000 mL New Bag Intravenous Jessica Velazquez, WOOD FLOOR REFINISHER ASSOCIATE VICE PRESIDENT 1457 400 mL Anesthesia Volume Adjustment Intravenous Luisana Lawson, WOOD FLOOR REFINISHER ASSOCIATE VICE PRESIDENT albumin 5% (mL) Total volume: 250 mL Date/Time Rate/Dose/Volume Action Route Admin User Audit 09/11/24 1337 New Bag Intravenous Jessica Velazquez, WOOD FLOOR REFINISHER ASSOCIATE VICE PRESIDENT 1348 250 mL Stopped Intravenous Jessica Velazquez, WOOD FLOOR REFINISHER ASSOCIATE VICE PRESIDENT Local Meds No Antibiotics cefazolin (Ancef) - last given at 1241 Pain Patient Currently in Pain: yes PACU meds fentanyl (Sublimaze): 50 mcg (total dose) last given at 1526 hydromorphone (Dilaudid): 0.4 mg (total dose) last given at 1557 SAUSAGE STUFFER / epidural No Capnography Yes Telemetry ECG Rhythm: Normal sinus rhythm Inpatient Geoscience Laboratory Technician Ordered? No Labs Glucose Lab Results Component Value Date GLC 84 11/09/2021 Hgb Lab Results Component Value Date HGB 16.3 11/09/2021 INR No results found for: INR PACU Imaging Not applicable Wound/Incision Incision/Surgical Site 09/11/24 Lower;Midline Back (Active) Incision Assessment UTV 09/11/24 1503 Closure Approximated;Liquid bandage 09/11/24 1415 Dressing Intervention Clean, dry, intact;New dressing applied 09/11/24 1415 Number of days: 0 CMS Equipment ice pack Other LDA IV Access Peripheral IV 09/11/24 Anterior;Left Hand (Active) Site Assessment WDL 09/11/24 1503 Line Status Infusing 09/11/24 1503 Dressing Transparent 09/11/24 1503 Dressing Status clean;dry;intact 09/11/24 1503 Line Necessity Yes, meets criteria 09/11/24 1503 Phlebitis Scale 0-->no symptoms 09/11/24 1503 Infiltration? no 09/11/24 1503 Number of days: 0 Blood Products Albumin EBL 0 mL Intake/Output Date 09/11/24 0700 - 09/12/24 0659 Shift [id number] [id number] 0905-1043 24 Hour Total INTAKE I.V. 1400 1400 Colloid 250 250 Shift Total(mL/kg) 1650(25.62) 1650(25.62) OUTPUT Blood 10 10 Shift Total(mL/kg) 10(0.16) 10(0.16) Weight (kg) 64.4 64.4 64.4 64.4 Drains / Baker Drain Closed/Suction Inferior;Left;Medial Back Accordion 10 Belarusian (Active) Site Description UTV 09/11/24 1503 Drainage Appearance Bloody/Bright Red 09/11/24 1503 Status To bulb suction 09/11/24 1503 Number of days: 0 Time of void PreOp Time of Void Prior to Procedure: 1102 (09/11/24 1102) PostOp Diapered? No Bladder Scan PO ice chips Vitals B/P: 118/56 T: 97.7 ??F (36.5 ??C) Temp src: Axillary P: Pulse: 77 (09/11/24 1545) R: 18 O2: SpO2: 99 % O2 Device: Nasal cannula (09/11/24 1545) Oxygen Delivery: 4 LPM (09/11/24 1545) Family/support present significant other, Leonardo Patient belongings Patient transported on cart DC meds/scripts (obs/outpt) Not applicable Inpatient Pain Meds Released? Yes Special needs/considerations Needs hearing aids & glasses Tasks needing completion [place] Primary Activity: Up with assist until independent No excessive bending or twisting. No lifting >10 lbs x 6 weeks. No Riddhi lift for transfers. Weight bearing status: WBAT. Pain management: Transition from IV to PO narcotics as tolerated. Antibiotics: Antibtioics until drains is removed Diet: Begin with clear fluids and progress diet as tolerated. DVT prophylaxis: SCDs only. No chemical DVT ppx needed. Imaging: None Labs: Hgb POD 1 Bracing/Splinting: None. Dressings: Keep bandage clean and dry. Drains: x1 Document output per shift, will be discontinued at Orthopedic Surgery discretion. Physical Therapy/Occupational Therapy: Eval and treat Cultures: none. Consults: Hospitalist Follow-up: Clinic with Dr. Storey in 6 weeks with repeat x-rays. Disposition: Pending progress with therapies, pain control on orals, and medical stability, anticipate discharge to home on POD #2-3. TATO Tejeda documented in this encounter Miscellaneous Notes * Plan of Care - Kayy Bourne, PT - 09/14/2024 2:35 PM CDT Physical Therapy Discharge Summary Reason for therapy discharge: Discharged to home. Progress towards therapy goal(s). See goals on Care Plan in [facility] electronic health record for goal details. Goals met Therapy recommendation(s): Continue home exercise program. * Plan of Care - Dane Mcgarry RN - 09/14/2024 2:35 PM CDT Goal Outcome Evaluation: Plan of Care Reviewed With: patient, spouse Overall Patient Progress: improvingOverall Patient Progress: improving Outcome Evaluation: Discharged today, all care plan needs met. DISCHARGE SUMMARY Pt discharging to: Home Transportation: Spouse AVS given and discussed: Pt was given AVS and pt states understanding of content. Pt has no furtherquestions. Medications given: Yes, discussed. No further questions. Belongings returned: Yes, ensured all belongings packed and sent with pt. No items in security. Comments: Escorted safely to elevators. Pt left at 1435 * Plan of Care - Vicente Chua RN - 09/14/2024 6:03 AM CDT Goal Outcome Evaluation:A/Ox4, Bilateral decreased hearing, Standby w/ walker to bathroom, RA, Abdominal hernia present, Hemovac dressing CDI and draining adequate output, Spinal Dressing CDI, Mepilex on bottom for protection, LBM:09/13, R&L PIV SL, Zofran given this shift w/py verbalizing relief, Pain managed per MAR, POC continues Plan of Care Reviewed With: patient Overall Patient Progress: no changeOverall Patient Progress: no change * Plan of Care - Tigre Gray RN - 09/13/2024 6:24 PM CDT Major Shift Events: -WBAT, declining to eat for breakfast stating he's not hungry, ate fr lunch and dinner , SBA in ambulation to the bathroom, denies dizziness, headache and chest pain - patient complained for nausea prn Zofran iv administered with huge relief - surgical dressing CDI, Hemovac patent Plan: - Pain control - monitor surgical incision sites , drain cares and I and O For vital signs and complete assessments, please see documentation flowsheets. Goal Outcome Evaluation: Plan of Care Reviewed With: patient Overall Patient Progress: no changeOverall Patient Progress: no change Outcome Evaluation: Afebrile, AOx4, TORRES MARTINEZ, able to turn and change position independently * Plan of Care - Vicente Chua RN - 09/13/2024 6:31 AM CDT Goal Outcome Evaluation:A/Ox4, Bilateral decreased hearing, Standby w/ walker to bathroom, RA, Abdominal hernia present, Hemovac dressing CDI and draining adequate output, Spinal Dressing CDI, Mepilex on bottom for protection - changed this shift, LBM:09/12, R&L PIV SL, Plan of Care Reviewed With: patient Overall Patient Progress: no changeOverall Patient Progress: no change * Plan of Care - Rubina Moore RN - 09/12/2024 10:25 PM CDT Patient is POD 1 from L5-S1 laminectomy, R cyst removal Goal Outcome Evaluation: Progressing Overall Patient Progress: no change Outcome Evaluation: No changes this shift VS: Temp: 98.5 ??F (36.9 ??C) Temp src: Oral BP: 102/55 Pulse: 61 Resp: 18 SpO2: 96 % O2 Device: None (Room air) O2: RA Output: Voiding adequately in urinal/bathroom. 45 per hemovac over 10 hours. Last BM: 09/12 Activity: SBA walker Skin: Spine incision CDI Pain: Moderate to high, on scheduled MS Contin BID. Offered oxycodone, mentioned he had been told by provider that they would order him dilaudid for tonight. He has IV dilaudid ordered prn q3h and hedid not want to take it until bedtime around 2300. Neuro: A&O x4 Dressing: CDI Diet: Regular LDA: Hemovac, R and L PIV Equipment: IV pole, walker Plan: Continue POC Additional Info: Son updated with patient permission. Patient vital signs are at baseline: Yes Patient able to ambulate as they were prior to admission or with assist devices provided by therapies during their stay: Yes Patient MUST void prior to discharge: Yes Patient able to tolerate oral intake: Yes Pain has adequate pain control using Oral analgesics: No, used IV dilaudid x1 Does patient have an identified excellence coach: Yes Has goal D/C date and time been discussed with patient: Yes * Plan of Care - Munira Presley RN - 09/12/2024 1:42 AM CDT [id number] Goal Outcome Evaluation: Plan of Care Reviewed With: patient Overall Patient Progress: no changeOverall Patient Progress: no change Outcome Evaluation: No acute changes this shift Pt is Aox4. Up SBA with walker. VSS on 1L O2 via NC. Denies sob, chest pain, n/v, n/t. Back pain managed with prn oxy, robaxin, and scheduled meds. LBM 09/11. X1 [address] Mepilex to sacrum. LPIV SL. R PIV running TKO. Continue POC. * Pharmacy-Admission Medication History - Deniz Mullen RPH - 09/11/2024 9:41 PM CDT Pharmacist Admission Medication History Admission medication history is complete. The information provided in this note is only as accurateas the sources available at the time of the update. Information Source(s): Patient and CareEverywhere/SureScripts via in-person Pertinent Information: Patient is good medication historian. Changes made to DOG DAYCARE PROVIDER medication list: Added: None Deleted: None Changed: MS Contin from BID prn to BID scheduled (can see Rx sig is take 1 tablet by mouth every 12hours) Compazine from prn to BID per pt report Oxycodone from 5 mg tablets no sig to 15 mg TID Prn per Rx sig available from fill history and patient report Allergies reviewed with patient and updates made in EHR: yes Medication History Completed By: Deniz Mullen RPH 09/11/2024 9:41 PM DOG DAYCARE PROVIDER Med List Medication Sig Note Last Dose/Taking Ascorbic Acid (VITAMIN C) 500 MG CAPS Take 1 tablet by mouth daily. Past Month hydroxyurea (HYDREA) 500 MG capsule Take 500 mg by mouth every evening 09/11/2024: For thrombocytosis per patient, negative leukemia workup per patient 09/10/2024 Bedtime morphine (MS CONTIN) 15 MG CR tablet Take 1 tablet by mouth 2 times daily. 09/10/2024 Bedtime oxyCODONE (ROXICODONE) 5 MG tablet Take 15 mg by mouth 3 times daily as needed for breakthrough pain. 09/11/2024: Patient typically takes oxycodone 15 mg in AM and PM with MS Contin. He might take additional dose prn but typically does not need to. Oxycodone is prescribed 15 mg TID prn so left sig as is. 09/11/2024 Morning prochlorperazine (COMPAZINE) 5 MG tablet Take 5 mg by mouth 2 times daily. 09/11/2024: Patient take Compazine in AM and PM with pain meds as he get nauseous from them. 09/10/2024 Bedtime sennosides (SENOKOT) 8.6 MG tablet Take 2 tablets by mouth at bedtime. Taking * Plan of Care - Dane Mcgarry RN - 09/11/2024 6:43 PM CDT Goal Outcome Evaluation: Plan of Care Reviewed With: patient, spouse, child Overall Patient Progress: no changeOverall Patient Progress: no change Outcome Evaluation: Arrived to unit at approximately 1600 today. Patient is A/O x4, baseline N/T isgone since surgery per pt. Sating mid-upper 90s on 2L NC, tried weening off but dropped to upper 80s. Pt has larger abdominal hernia tender to touch. Non-blanchable redness to coccyx, mepilex applied. R & L PIV SL, hemovac in place with minimal drainage, dressing to back surgical incision CDI, pain well managed with no meds. generalized dryness to skin throughout. Had up to bathroom ambulating with A1 walker & gait belt, tolerated good. Continue with plan of care. BP 121/58 (BP Location: Left arm) Pulse 78 Temp 97.5 ??F (36.4 ??C) (Oral) Resp 18 Ht 1.74 m (5' 8.5) Wt 64.4 kg (141 lb 15.6 oz) SpO2 100% BMI 21.27 kg/m?? * Brief Op Note - Vinayak Zhu MD - 09/11/2024 2:49 PM CDT Brief Operative Note Preop Dx: Cyst of lumbar facet joint [M71.38] Spinal stenosis of lumbar region with neurogenic claudication [M48.062] Post op Dx: Same Procedure: Procedure(s): Lumbar 5 to Sacral 1 Decompression Surgeon: Jorge A Storey MD Assistants: Vinayak Zhu MD Anesthesia: General EBL: 25ml Total IV Fluids: See Anesthesia Record Specimens: None Findings: See Operative Dictation Assessment and Plan: Luis Markham is a 83 year old male with PMH including lumbar radiculopathynow s/p above procedure on 09/11/[address] Storey. [place] Primary Activity: Up with assist until independent No excessive bending or twisting. No lifting >10 lbs x 6 weeks. No Riddhi lift for transfers. Weight bearing status: WBAT. Pain management: Transition from IV to PO narcotics as tolerated. Antibiotics: Antibtioics until drains is removed Diet: Begin with clear fluids and progress diet as tolerated. DVT prophylaxis: SCDs only. No chemical DVT ppx needed. Imaging: None Labs: Hgb POD 1 Bracing/Splinting: None. Dressings: Keep bandage clean and dry. Drains: x1 Document output per shift, will be discontinued at Orthopedic Surgery discretion. Baker catheter: Remove POD#1. Physical Therapy/Occupational Therapy: Eval and treat Cultures: none. Consults: Hospitalist Follow-up: Clinic with Dr. Storey in 6 weeks with repeat x-rays. Disposition: Pending progress with therapies, pain control on orals, and medical stability, anticipate discharge to home on POD #2-3. Indications for specimen preparation assistant: I assisted in positioning, exposure, retraction, instrumentation, hemostasis, and wound closure allowing for reduction in anesthesia time and blood loss. Vinayak Zhu MD Spine Fellow Please page me with any questions/concerns during regular weekday hours before 4pm. If there is no response, if it is a weekend, or if it is during evening hours then please page the orthopaedic surgery resident proposition player. * Op Note - Jorge A Storey MD - 09/11/2024 1:05 PM CDT DATE OF SURGERY: 09/11/2024 PREOPERATIVE DIAGNOSIS: Cyst of lumbar facet joint [M71.38] Spinal stenosis of lumbar region with neurogenic claudication [M48.062] POSTOPERATIVE DIAGNOSIS: Same PROCEDURES: 22-Modifier: The patient had a large facet cyst which was very adherent to the dura and required great care to remove and this made the case more difficult than a standard spondylotic decompression and for this reason I have added a 22- modifier to the entire procedure. 1. L5 and S1 laminectomy and partial medial facetectomies and foraminotomies for decompression of the L5 and S1 nerve roots for removal of a facet cyst. PRIMARY SURGEON: Jorge A Storey MD QUOTATION CHECKER: Vinayak Keen, Fellow Surgeon,The specimen preparation assistant was necessary for all phases of the operation, decompression, and all bone work and also for visualization, and closure. There was no qualified resident available. ANESTHESIA: General Endotracheal COMPLICATIONS: None. SPECIMENS: None. ESTIMATED BLOOD LOSS: 25cc INDICATIONS: Luis Markham is a 83 year old male who elected surgical treatment, and understood the indications for this surgery, as well as its risks, benefits, and alternatives as documented in the pre-operative H&P. Specifically, we reviewed the risks and benefits of the surgery in detail. The risks include, but are not limited to, the general risks associated with anesthesia, including , pulmonary embolism, DVT, stroke, myocardial infarction, pneumonia, and urinary tract infection. Additional risks specific to the surgery include the risk of infection, dural tear with resultant CSF leak which might necessitate placement of a drain or revision surgery or could result in headaches, nerve injury resulting in weakness or paralysis, risk of adjacent segment disease, the risks of vascular injury, need for revision surgery in the future due to one of the above issues, or risk of incomplete symptom relief. Luis Markham understands the risks of the surgery and wishes to proceed. No Guarantees were given. DESCRIPTION OF PROCEDURE: Luis Markham was taken to the operating room, where the Anesthesiology Service induced satisfactory general anesthesia. Ancef was given IV. Venous thromboembolic prophylaxis was performed with sequential devices. A Baker catheter was placed under standard sterile techniques. The patient was placed prone on an open OSI frame with the abdomen hanging free and all bonyprominences well padded. The low back was then prepped and draped in its entirety in the usual sterile fashion. We then held a multidisciplinary time out in which we verified the patient, procedure, antibiotics, and operative plan. All team members were in agreement. Digital Radiography was brought into the sterile field to obtain a true lateral view and needles were placed to kishor the intended point of incision. We made a midline incision and a bilateral subperiosteal exposure was performed of the L5 through S1 spinous processes and medial lamina. A needle wasplaced into the medial facet joint at the caudal most level and a final image was then obtained to verify our position. The decompression was performed in the same fashion at each level sequentially including the L5 andS1 levels which resulted in the decompression of the L5 and S1 nerve roots. For each level, the spinous process was removed with a rongeur. The dorsal cortex of the lamina wasthen thinned with the rongeur. We palpated the lateral border of the pars to verify the planned width of the decompression. I used a cautery to kishor out the planned limits of the resection to providea visual reference. A 4mm round bur was then used to remove the remaining dorsal cortical and cancellous layers. Eventually, the ligamentum flavum was uncovered by the bur in the midline. The proximal origin of the ligamentum flavum and epidural fat were identified. A curette was used to split and elevate the flavum in the midline, exposing the epidural fat underneath. Kerrison punches were then used to resect the flavum down to the caudad laminar edge. At this point the central decompression was complete, and I turned my attention to the partial medial facetectomy. A 5mm strait osteotome wasused to resect the remaining overhanging medial facet. Where necessary the resection was completed with a kerrison. This was continued laterally until the medial wall of the pedicle was readily palpab le. I then completed the foraminotomies. A jennifer was used to trace out the edge of the pedicle. Elizabeth introduced a 2mm kerrison into the foramen below the pedicle, keeping the shoe of the kerrisonfacing the nerve root. Using multiple bites in this way, I was able to remove the remaining facet capsule and osteophytes that were compressing the exiting nerve root. In the same fashion, I was ableto reach out into the foramen above the pedicle and remove any compression on the exiting nerve root above. This process was performed sequentially at each of the levels noted. In performing the decompression, I found a large facet cyst coming from the right L5-S1 facet. We took great care to peel this off the dura and remove any source of compression. This did add to the operative time and complexity because the cyst was very adherent to the dura. The wound was then thoroughly irrigated. Hemostasis was achieved. A hemovac drain was placed. The wound was closed in layers with vicryl suture, followed by monocryl and dermabond for the skin. A sterile dressing was applied. The patient was turned supine, extubated, and returned to the recovery area in stable condition. I was present and scrubbed for the critical portions of the procedure including the exposure and decompression. Jorge A Storey MD documented in this encounter Plan of Treatment Upcoming Encounters Date Type Department Care Team (Late st Contact Info) Description 10/28/2024 12:50 PM CDT Office Visit [facility] [place] [address] [facility] 4th [place] [phone] Jorge A Storey MD 9 [place] [address] 01/02/2025 10:45 AM CDT Office Visit [facility] [address] [phone] Sydney Huff DO 9 [place], [place] [id number] documented as of this encounter Procedures Procedure Name Priority Date/Time Associated Diagnosis Comments EXTRA TUBE Routine 09/13/2024 7:14 AM CDT EXTRA GREEN TOP (LITHIUM HEPARIN) TUBE Routine 09/13/2024 7:14 AM CDT HEMOGLOBIN Routine 09/13/2024 7:14 AM CDT CBC WITH PLATELETS AND DIFFERENTIAL Routine 09/12/2024 5:49 AM CDT CBC WITH PLATELETS & DIFFERENTIAL Routine 09/12/2024 5:49 AM CDT CREATININE Routine 09/12/2024 5:49 AM CDT XR LUMBAR SPINE PORT 1 VIEW Routine 09/11/2024 1:45 PM CDT NEWELL W/O FACETEC FORAMOT/DSKC 1/2 VRT SEG, LUMBAR 09/11/2024 12:34 PM CDT 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 Special Needs Estimated Blood Loss: 25ccH&P to be completed by?PLACE PNEUMOBOOTS ON PATIENT IN PRE-OP documented in this encounter Results * Extra Green Top ([place] Heparin) Tube (09/13/2024 7:14 AM CDT) Hold Specimen JIC 09/13/2024 10:16 AM CDT UR LABORATORY Blood STRUCTURE OF RIGHT UPPER LIMB / Unknown Venipuncture / Unknown 09/13/2024 7:14 AM CDT 09/13/2024 9:13 AM CDT us Jorge A Storey MD LAB - BLOOD ORDERAB LES Final Result UR LABORATORY [facility], Room [place] [phone] * (ABNORMAL) Hemoglobin (09/13/2024 7:14 AM CDT) Pathologist [facility] Hemoglobin 9.4(L) 13.3 - 17.7 g/dL 09/13/2024 8:00 AM CDT UR LABORATORY Blood STRUCTURE OF RIGHT UPPER LIMB / Unknown Venipuncture / Unknown 09/13/2024 7:14 AM CDT 09/13/2024 7:53 AM CDT us Jonh Burch MD LAB - BLOOD ORDERABLES Final Res ult UR LABORATORY [facility] [address] [place] [address], Room [address] * (ABNORMAL) CBC with platelets and differential (09/12/2024 5:49 AM CDT) Pathologist [facility] WBC Count 5.8 4.0 - 11.0 10e3/uL 09/12/2024 6:17 AM CDT UR LABORATORY RBC Count 2.90(L) 4.40 - 5.90 10e6/uL 09/12/2024 6:17 AM CDT UR LABORATORY Hemoglobin 9.1(L) 13.3 - 17.7 g/dL 09/12/2024 6:17 AM CDT UR LABORATORY Hematocrit 26.7(L) 40.0 - 53.0 % 09/12/2024 6:17 AM CDT UR LABORATORY MCV 92 78 - 100 fL 09/12/2024 6:17 AM CDT UR LABORATORY MCH 31.4 26.5 - 33.0 pg 09/12/2024 6:17 AM CDT UR LABORATORY MCHC 34.1 31.5 - 36.5 g/dL 09/12/2024 6:17 AM CDT UR LABORATORY RDW 19.5(H) 10.0 - 15.0 % 09/12/2024 6:17 AM CDT UR LABORATORY Platelet Count 308 150 - 450 10e3/uL 09/12/2024 6:17 AM CDT UR LABORATORY % Neutrophils 69 % 09/12/2024 6:17 AM CDT UR LABORATORY % Lymphocytes 19 % 09/12/2024 6:17 AM CDT UR LABORATORY % Monocytes 11 % 09/12/2024 6:17 AM CDT UR LABORATORY % Eosinophils 0 % 09/12/2024 6:17 AM CDT UR LABORATORY % Basophils 0 % 09/12/2024 6:17 AM CDT UR LABORATORY % Immature Granulocytes 0 % 09/12/2024 6:17 AM CDT UR LABORATORY NRBCs per 100 WBC 0 <1 /100 025 6:17 AM CDT UR LABORATORY Absolute Neutrophils 4.0 1.6 - 8.3 10e3/uL 09/12/2024 6:17 AM CDT UR LABORATORY Absolute Lymphocytes 1.1 0.8 - 5.3 10e3/uL 09/12/2024 6:17 AM CDT UR LABORATORY Absolute Monocytes 0.6 0.0 - 1.3 10e3/uL 09/12/2024 6:17 AM CDT UR LABORATORY Absolute Eosinophils 0.0 0.0 - 0.7 10e3/uL 09/12/2024 6:17 AM CDT UR LABORATORY Absolute Basophils 0.0 0.0 - 0.2 10e3/uL 09/12/2024 6:17 AM CDT UR LABORATORY Absolute Immature Granulocytes 0.0 <=0.4 10e3/uL 09/12/2024 6:17 AM CDT UR LABORATORY Absolute NRBCs 0.0 10e3/uL 09/12/2024 6:17 AM CDT UR LABORATORY Blood STRUCTURE OF RIGHT HAND / Unknown Venipuncture / Unknown 09/12/2024 5:49 AM CDT 09/12/2024 6:12 AM CDT us Anne-Marie Hogan MD LAB - BLOOD ORDERABLES Final Result UR LABORATORY [facility] Acute [facility] Lab [address] [facility], Room [place] [phone] * Creatinine (09/12/2024 5:49 AM CDT) Creatinine 0.76 0.67 - 1.17 mg/dL 09/12/2024 7:03 AM CDT UR LABORATORY GFR Estimate 88 >60 mL/min/1.7 3m2 09/12/2024 7:03 AM CDT UR LABORATORY Comment:eGFR calculated 2020 CKD-EPI equation. Blood STRUCTURE OF RIGHT HAND / Unknown Venipuncture / Unknown 09/12/2024 5:49 AM CDT 09/12/2024 6:42 AM CDT Jonh Burch MD LAB - BLOOD ORDERABLES Final Res ult Performing Organization Address City/[facility] Co de Phone Number UR LABORATORY [facility] [address] [place] [address], Room [place] [phone] * XR Lumbar Spine Port 1 View (09/11/2024 1:45 PM CDT) Narrative [facility] - 09/11/2024 1:45 PM CDT This exam was marked as non-reportable because it will not be read by a radiologist or a [place] non-radiologist provider. 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 Maximum dose of 2 grams/day for patients with liver disease or excessive alcohol use. Maximum acetaminophen dose from all sources = 75 mg/kg/day not to exceed 4 grams/day. $Given 09/13/2024 5:19 PM CDT 975 mg $Given 09/13/2024 8:57 AM CDT 975 mg $Given 09/12/2024 5:34 PM CDT 975 mg BUPivacaine 0.25 % - EPINEPHrine 1:200,000 injection PRN, Starting on Flower 09/11/24 at 1414, Intra-procedure $Given 09/11/2024 2:14 PM CDT 60 mLs Operative Site/Surgi avery Site ceFAZolin (ANCEF) 2 g in dextrose 50 mL intermittent infusion Routine, 2 g, Intravenous, EVERY 8 HOURS, First dose on Flower 09/11/24 at 2030, Indications: Perioperative Pharmacoprophylaxis, Keep until drains removedIndications:Perioper ative Pharmacoprophylaxis,Keep until drains removed $New Bag 09/14/2024 1:34 PM CDT 2 g $New Bag 09/14/2024 6:46 AM CDT 2 g $New Bag 09/13/2024 9:05 PM CDT 2 g HYDROmorphone (PF) (DILAUDID) injection 0.2-0.5 mg 0.2-0.5 mg, Intravenous, EVERY 3 HOURS PRN, severe pain, For pain that is not controlled with oral medications., Starting on Sun09/11/24 at 2010 $Given 09/14/2024 9:19 AM CDT 0.5 mg $Given 09/12/2024 10:49 PM CDT 0.5 mg Xavier PACK 1 packet 1 packet, Oral, 2 TIMES DAILY WITH MEALS, First dose (after last modification) on Sun09/12/24 at 0800 melatonin tablet 5 mg 5 mg, Oral, AT BEDTIME PRN, sleep, Starting on Flower 09/11/24 at 2012 $Given 09/11/2024 9:22 PM CDT 5 mg methocarbamol (ROBAXIN) half-tab 250 mg 250 mg, Oral, EVERY 6 HOURS PRN, muscle spasms, Starting on Flower 09/11/24 at 1644, Hold for sedation. $Given 09/14/2024 12:02 AM CDT 250 mg $Given 09/13/2024 5:19 PM CDT 250 mg $Given 09/12/2024 11:51 PM CDT 250 mg morphine (MS CONTIN) 12 hr tablet 15 mg 15 mg, Oral, EVERY 12 HOURS SCHEDULED, First dose (after last modification) on Flower 09/11/24 at 2200, DO NOT CRUSH. $Given 09/13/2024 8:57 AM CDT 15 mg $Given 09/12/2024 7:58 PM CDT 15 mg $Given 09/12/2024 8:22 AM CDT 15 mg naloxegol (MOVANTIK) tablet 25 mg 25 mg, Oral, EVERY MORNING BEFORE BREAKFAST, First dose on Sun09/12/24 at 0730 $Given 09/14/2024 9:18 AM CDT 25 mg $Given 09/13/2024 8:57 AM CDT 25 mg $Given 09/12/2024 8:22 AM CDT 25 mg naloxone (NARCAN) injection 0.2 mg 0.2 mg, Intravenous, EVERY 2 MIN PRN, opioid reversal, Starting on Flower 09/11/24 at 1659, Administer intravenous route when available and notify provider when administered. For unintended sedation or respiratory depression if all of the below criteria are met: ~ respiratory rate LESS than or EQUAL to 8. ~SaO2 less than 92% and or/end-tidal CO2 is greater than 50. ~ the patient is receiving an opioid, has unintended sedations assessed as RASS (-3), and is currently not on mechanical ventilation. RASS scale moderate (-3) is movement or eye opening to voice but no eye contact. Patient Monitoring Once the patient has demonstrated a response to the naloxone, continue to monitor respiratory rate, depth, oxygen saturation and end-tidal CO2 (if available) every 15 minutes x 2, then every 30 minutes x 2, then every 1 hour x 1 after each naloxone dose. Consider transfer to ICU if patient respiratory parameters have not improved after 4 naloxone doses. naloxone (NARCAN) injection 0.2 mg 0.2 mg, Intramuscular, EVERY 2 MIN PRN, opioid reversal, Starting on Flower 09/11/24 at 1659, Administer intramuscular if an intravenous route is not available and notify provider when administered. For unintended sedation or respiratory depression if all of the below criteria are met: ~ respiratory rate LESS than or EQUAL to 8. ~SaO2 less than 92% and or/end-tidal CO2 is greater than 50. ~ the patient is receiving an opioid, has unintended sedations assessed as RASS (-3), and is currently not on mechanical ventilation. RASS scale moderate (-3) is movement or eye opening to voice but no eye contact. Patient Monitoring Once the patient has demonstrated a response to the naloxone, continue to monitor respiratory rate, depth, oxygen saturation and end-tidal CO2 (if available) every 15 minutes x 2, then every 30 minutes x 2, then every 1 hour x 1 after each naloxone dose. Consider transfer to ICU if patient respiratory parameters have not improved after 4 naloxone doses. naloxone (NARCAN) injection 0.4 mg 0.4 mg, Intravenous, EVERY 2 MIN PRN, opioid reversal, Starting on Flower 09/11/24 at 1659, Administer intravenous route when available and notify provider when administered. For unintended sedation or respiratory depression if all of the below criteria are met: ~ respiratory rate LESS than or EQUAL to 8. ~ SaO2 less than 92% and or/end-tidal CO2 is greater than 50. ~ the patient is receiving an opioid, has unintended sedation assessed as RASS (-4) or (-5) and patient is currently not on mechanical ventilation. RASS scale (-4) is deep sedation with no response to voice but movement or eye opening to physical stimulation. RASS scale (-5) is unarousable. Patient Monitoring Once the patient has demonstrated a response to the naloxone, continue to monitor respiratory rate, depth, oxygen saturation and end-tidal CO2 (if available) every 15 minutes x 2, then every 30 minutes x 2, then every 1 hour x 1 after each naloxone dose. Consider transfer to ICU if patient respiratory parameters have not improved after 4 naloxone doses. naloxone (NARCAN) injection 0.4 mg 0.4 mg, Intramuscular, EVERY 2 MIN PRN, opioid reversal, Starting on Flower 09/11/24 at 1659, Administer intramuscular if an intravenous route is not available and notify provider when administered. For unintended sedation or respiratory depression if all of the below criteria are met: ~ respiratory rate LESS than or EQUAL to 8. ~ SaO2 less than 92% and or/end-tidal CO2 is greater than 50. ~ the patient is receiving an opioid, has unintended sedation assessed as RASS (-4) or (-5) and patient is currently not on mechanical ventilation. RASS scale (-4) is deep sedation with no response to voice but movement or eye opening to physical stimulation. RASS scale (-5) is unarousable. Patient Monitoring Once the patient has demonstrated a response to the naloxone, continue to monitor respiratory rate, depth, oxygen saturation and end-tidal CO2 (if available) every 15 minutes x 2, then every 30 minutes x 2, then every 1 hour x 1 after each naloxone dose. Consider transfer to ICU if patient respiratory parameters have not improved after 4 naloxone doses. ondansetron (ZOFRAN ODT) ODT tab 4 mg 4 mg, Oral, EVERY 6 HOURS PRN, nausea/vomiting - 1st line, Starting on Flower 09/11/24 at 1644, This is Step 1 of nausea and vomiting management. If nausea not resolved in 15 minutes, go to Step 2 prochlorperazine (COMPAZINE). With dry hands, peel back foil backing and gently remove tablet. Do not push oral disintegrating tablet through foil backing. Administer immediately on tongue and oral disintegrating tablet dissolves in seconds, then swallow with saliva. Liquid not required. $Given 09/13/2024 9:05 PM CDT 4 mg ondansetron (ZOFRAN) injection 4 mg 4 mg, Intravenous, EVERY 6 HOURS PRN, nausea/vomiting - 1st line, Administer over 2-5 Minutes, Starting on Flower 09/11/24 at 1644, Give IF patient unable to tolerate oral medication. This is Step 1 of nausea and vomiting management. If nausea not resolved in 15 minutes, go to Step 2 prochlorperazine (COMPAZINE). $Given 09/13/2024 1:05 PM CDT 4 mg oxyCODONE IR (ROXICODONE) tablet 10 mg 10 mg, Oral, EVERY 4 HOURS PRN, moderate pain, Starting on Flower 09/11/24 at 2011, Separate opioids 1 hour apart from any other sedative. Hold for RASS-2. Hold for confusion/somnolence. $Given 09/14/2024 3:50 AM CDT 10 mg $Given 09/13/2024 5:19 PM CDT 10 mg $Given 09/13/2024 5:51 AM CDT 10 mg oxyCODONE IR (ROXICODONE) tablet 15 mg 15 mg, Oral, EVERY 4 HOURS PRN, severe pain, Starting on Flower 09/11/24 at 2011, Separate opioids 1 hour apart from any other sedative. Hold for RASS-2. Hold for confusion/somnolence. $Given 09/13/2024 1:02 PM CDT 15 mg $Given 09/12/2024 1:57 PM CDT 15 mg $Given 09/12/2024 8:27 AM CDT 15 mg polyethylene glycol (MIRALAX) Packet 17 g 17 g, Oral, DAILY, First dose on Sun09/12/24 at 0800, To prevent constipation. Mixed prescribed dose in 8 ounces of water, juice or soda. Administer daily starting at 0900 on POD 1. Hold for loose stools. 1 Packet = 17 grams. Mix each gram with at least 1/2 ounce (15 mL) of water - 8 ounces for 17 g dose, 4 ounces for 8.5 g dose, 2 ounces for 4 g dose. Follow with the same volume of water. Hold for loose stools unless being administered as part of a bowel prep regimen or bowel clean out. $Given 09/14/2024 9:19 AM CDT 17 g $Given 09/12/2024 10:24 AM CDT 17 g prochlorperazine (COMPAZINE) injection 5 mg 5 mg, Intravenous, EVERY 6 HOURS PRN, nausea/vomiting - 2nd line, Administer over 1-2 Minutes, Starting on Flower 09/11/24 at 1644, IF patient unable to tolerate oral medication. This is Step 2 of nausea and vomiting management. Give if nausea not resolved 15 minutes after giving ondansetron (ZOFRAN). prochlorperazine (COMPAZINE) tablet 5 mg 5 mg, Oral, EVERY 6 HOURS PRN, nausea/vomiting - 2nd line, Starting on Flower 09/11/24 at 1644, This is Step 2 of nausea and vomiting management. Give if nausea not resolved 15 minutes after giving ondansetron (ZOFRAN). senna-docusate (SENOKOT-S/PERICOLACE) 8.6-50 MG per tablet 1 tablet 1 tablet, Oral, 2 TIMES DAILY, First dose on Flower 09/11/24 at 2000, To prevent constipation. Hold for loose stools Hold for loose stools. $Given 09/14/2024 9:18 AM CDT 1 tablet $Given 09/13/2024 9:04 PM CDT 1 tablet $Given 09/12/2024 7:58 PM CDT 1 tablet sodium chloride (PF) 0.9% PF flush 3 mL 3 mL, Intracatheter, EVERY 8 HOURS SCHEDULED, First dose on Flower 09/11/24 at 2200, to lock peripheral IV dormant line $Given 09/14/2024 6:47 AM CDT 3 mLs $Given 09/13/2024 10:17 PM CDT 3 mLs $Given 09/13/2024 1:06 PM CDT 3 mLs sodium chloride 0.9% (bottle) irrigation PRN, Starting on Flower 09/11/24 at 1414, Intra-procedure $Given 09/11/2024 2:14 PM CDT 200 mLs Operative Site/Surgi avery Site documented in this encounter Active and Recently Administered Medications Times are shown in CDT. Scheduled Medication Order 09/12/2024 09/13/2024 09/14/2024 acetaminophen (TYLENOL) tablet 975 mg 975 mg, Oral, EVERY 8 HOURS, First dose on Flower 09/11/24 at 1730, Administer for multimodal surgical pain management. Maximum dose of 2 grams/day for patients with liver disease or excessive alcohol use. Maximum acetaminophen dose from all sources = 75 mg/kg/day not to exceed 4 grams/day. 0053 (Not Given - Provider: Munira Presley RN - Reason: Patient sleeping - Comment: Pt did not want to be woken for this dose)1024 ($Given - Provider: Ana Friedman RN)1734 ($Given - Provider: Rubina Moore RN) 0134 (Not Given - Provider: Vicente Chua RN - Reason: Patient/family refused)0857 ($Given - Provider: Tigre Gray, TATO)1719 ($Given - Provider: Tigre Gray, TATO) 0140 (Not Given - Provider: Vicente Chua RN - Reason: Patient/family refused)0920 (Not Given - Provider: Dane Mcgarry RN - Reason: Patient/family refused) ceFAZolin (ANCEF) 2 g in dextrose 50 mL intermittent infusion Routine, 2 g, Intravenous, EVERY 8 HOURS, First dose on Sun09/11/24 at 2030, Indications: Perioperative Pharmacoprophylaxis, Keep until drains removed 0508 ($New Bag - Provider: Munira Presley, RN)1350 ($New Bag - Provider: Ana Friedman RN)2116 ($New Bag - Provider: Rubina Moore RN) 0552 ($New Bag - Provider: Vicente Chua, TATO)1306 ($New Bag - Provider: Tigre Gray RN)2105 ($New Bag - Provider: Vicente Chua, RN) 0646 ($New Bag - Provider: Vicente Chua RN)1334 ($New Bag - Provider: Dane Mcgarry RN) hydroxyurea (HYDREA) capsule 500 mg 500 mg, Oral, EVERY EVENING, First dose on Sun09/11/24 at 2130, Indications: Essential Thrombocythemia, Do not crush May require hepatic and/or renal dose or frequency adjustments. See reference link for guidelines., On hold since Sun09/11/2024 at 2134 until manually unheld 1999 (Automatically Held - Provider: Anne-Marie Hogan MD) 1999 (Automatically Held - Provider: Anne-Marie Hogan MD) 1641 (Unheld by provider - Provider: Orders Generic Provider) Xavier PACK 1 packet 1 packet, Oral, 2 TIMES DAILY WITH MEALS, First dose (after last modification) on Sun09/12/24 at 0800 1035 (Not Given - Provider: Ana Friedman RN - Reason: Not in room)1999 (Not Given - Provider: Rubina Moore RN - Reason: Medication not available) 0901 (Not Given - Provider: Tigre Gray RN - Reason: Not in room)1828 (Not Given - Provider: Tigre Gray RN - Reason: Not in room) 1231 (Not Given - Provider: Dane Mcgarry RN - Reason: Medication not available) morphine (MS CONTIN) 12 hr tablet 15 mg 15 mg, Oral, EVERY 12 HOURS SCHEDULED, First dose (after last modification) on Flower 09/11/24 at 2200, DO NOT CRUSH. 0822 ($Given - Provider: Ana Friedman RN)1957 ($Given - Provider: Rubina Moore RN) 0857 ($Given - Provider: Tigre Gray RN)2054 (Not Given - Provider: Vicente Chua RN - Reason: Patient/family refused) 1040 (Not Given - Provider: Dane Mcgarry RN - Reason: Patient/family refused - Comment: pt stated it causes nausea) naloxegol (MOVANTIK) tablet 25 mg 25 mg, Oral, EVERY MORNING BEFORE BREAKFAST, First dose on Sun09/12/24 at 0730 0822 ($Given - Provider: Ana Friedman RN) 0857 ($Given - Provider: Tigre Gray RN) 0918 ($Given - Provider: Dane Mcgarry RN) polyethylene glycol (MIRALAX) Packet 17 g 17 g, Oral, DAILY, First dose on Sun09/12/24 at 0800, To prevent constipation. Mixed prescribed dose in 8 ounces of water, juice or soda. Administer daily starting at 0900 on POD 1. Hold for loose stools. 1 Packet = 17 grams. Mix each gram with at least 1/2 ounce (15 mL) of water - 8 ounces for 17 g dose, 4 ounces for 8.5 g dose, 2 ounces for 4 g dose. Follow with the same volume of water. Hold for loose stools unless being administered as part of a bowel prep regimen or bowel clean out. 1024 ($Given - Provider: Ana Friedman RN) 0857 (Not Given - Provider: Tigre Gray RN - Reason: Patient/family refused) 0919 ($Given - Provider: Dane Mcgarry RN) senna-docusate (SENOKOT-S/PERICOLACE) 8.6-50 MG per tablet 1 tablet 1 tablet, Oral, 2 TIMES DAILY, First dose on Flower 09/11/24 at 2000, To prevent constipation. Hold for loose stools Hold for loose stools. 0822 ($Given - Provider: Ana Schwabe, RN)1958 ($Given - Provider: Rubina Moore RN) 0858 (Not Given - Provider: Tigre Gray RN - Reason: Patient/family refused)2104 ($Given - Provider: Vicente Chua RN) 0918 ($Given - Provider: Dane Mcgarry, RN) sodium chloride (PF) 0.9% PF flush 3 mL 3 mL, Intracatheter, EVERY 8 HOURS SCHEDULED, First dose on Flower 09/11/24 at 2200, to lock peripheral IV dormant line 0508 ($Given - Provider: Munira Presley RN)1553 (Canceled Entry - Provider: Rubina Moore RN)2149 (Not Given - Provider: Rubina Moore RN - Reason: IV Infusing) 0555 ($Given - Provider: Vicente Chua RN)1306 ($Given - Provider: Tigre Gray RN)2217 ($Given - Provider: Vicente Chua, TATO) 0647 ($Given - Provider: Vicente Chua RN)1400 (Canceled Entry - Provider: Orders Generic Provider - Comment: Automatically canceled at discontinue of medication order) PRN Medication Order 09/12/2024 09/13/2024 09/14/2024 bisacodyl (DULCOLAX) suppository 10 mg 10 mg, Rectal, DAILY PRN, constipation, Use if magnesium hydroxide (MILK of MAGNESIA) is not effective after 24 hours. May discontinue if patient having bowel movement., Starting on [place] 09/14/24 at 0000, Hold for loose stools. HYDROmorphone (PF) (DILAUDID) injection 0.2-0.5 mg 0.2-0.5 mg, Intravenous, EVERY 3 HOURS PRN, severe pain, For pain that is not controlled with oral medications., Starting on [place] 09/11/24 at 2010 2249 ($Given - Provider: Rubina Moore RN) 0919 ($Given - Provider: Dane Mcgarry, TATO) lidocaine (LMX4) cream Topical, EVERY 1 HOUR PRN, pain, with VAD insertion, Starting on [place] 09/11/24 at 1644, Apply at least 30 minutes prior to VAD insertion in divided doses as needed for size of site for insertion. MAX Dose: 2.5 g ( of 5 g tube) Do NOT give if patient has a history of allergy to any local anesthetic or any imelda product. Do NOT use both lidocaine intradermal/subcutaneous injection and the lidocaine cream on the same site. lidocaine 1 % 0.1-1 mL 0.1-1 mL, Other, EVERY 1 HOUR PRN, mild pain with VAD insertion, Starting on [place] 09/11/24 at 1644, MAX dose 1 mL subcutaneous OR intradermal along the side of the vein in divided doses as needed for VAD insertion. Do NOT give if patient has a history of allergy to any local anesthetic or any imelda product. Do NOT use both lidocaine intradermal/subcutaneous injection and the lidocaine cream on the same site. magnesium hydroxide (MILK OF MAGNESIA) suspension 30 mL 30 mL, Oral, DAILY PRN, constipation, Use if polyethylene glycol (Miralax) is not effective after 24 hours., Starting on 09/13/24 at 0000, Shake well. Hold for loose stools. melatonin tablet 5 mg 5 mg, Oral, AT BEDTIME PRN, sleep, Starting on [place] 09/11/24 at 2013 methocarbamol (ROBAXIN) half-tab 250 mg 250 mg, Oral, EVERY 6 HOURS PRN, muscle spasms, Starting on [place] 09/11/24 at 1644, Hold for sedation. 0827 ($Given - Provider: Ana Friedman RN)1449 ($Given - Provider: Ana Friedman RN)2351 ($Given - Provider: Vicente Chua RN) 1719 ($Given - Provider: Tigre Gray RN) 0002 ($Given - Provider: Vicente Chua, TATO) naloxone (NARCAN) injection 0.2 mg(Linked Group 1) 0.2 mg, Intravenous, EVERY 2 MIN PRN, opioid reversal, Starting on [place] 09/11/24 at 1659, Administer intravenous route when available and notify provider when administered. For unintended sedation or respiratory depression if all of the below criteria are met: ~ respiratory rate LESS than or EQUAL to 8. ~SaO2 less than 92% and or/end-tidal CO2 is greater than 50. ~ the patient is receiving an opioid, has unintended sedations assessed as RASS (-3), and is currently not on mechanical ventilation. RASS scale moderate (-3) is movement or eye opening to voice but no eye contact. Patient Monitoring Once the patient has demonstrated a response to the naloxone, continue to monitor respiratory rate, depth, oxygen saturation and end-tidal CO2 (if available) every 15 minutes x 2, then every 30 minutes x 2, then every 1 hour x 1 after each naloxone dose. Consider transfer to ICU if patient respiratory parameters have not improved after 4 naloxone doses. naloxone (NARCAN) injection 0.2 mg(Linked Group 1) 0.2 mg, Intramuscular, EVERY 2 MIN PRN, opioid reversal, Starting on [place] 09/11/24 at 1659, Administer intramuscular if an intravenous route is not available and notify provider when administered. For unintended sedation or respiratory depression if all of the below criteria are met: ~ respiratory rate LESS than or EQUAL to 8. ~SaO2 less than 92% and or/end-tidal CO2 is greater than 50. ~ the patient is receiving an opioid, has unintended sedations assessed as RASS (-3), and is currently not on mechanical ventilation. RASS scale moderate (-3) is movement or eye opening to voice but no eye contact. Patient Monitoring Once the patient has demonstrated a response to the naloxone, continue to monitor respiratory rate, depth, oxygen saturation and end-tidal CO2 (if available) every 15 minutes x 2, then every 30 minutes x 2, then every 1 hour x 1 after each naloxone dose. Consider transfer to ICU if patient respiratory parameters have not improved after 4 naloxone doses. naloxone (NARCAN) injection 0.4 mg(Linked Group 1) 0.4 mg, Intravenous, EVERY 2 MIN PRN, opioid reversal, Starting on [place] 09/11/24 at 1659, Administer intravenous route when available and notify provider when administered. For unintended sedation or respiratory depression if all of the below criteria are met: ~ respiratory rate LESS than or EQUAL to 8. ~ SaO2 less than 92% and or/end-tidal CO2 is greater than 50. ~ the patient is receiving an opioid, has unintended sedation assessed as RASS (-4) or (-5) and patient is currently not on mechanical ventilation. RASS scale (-4) is deep sedation with no response to voice but movement or eye opening to physical stimulation. RASS scale (-5) is unarousable. Patient Monitoring Once the patient has demonstrated a response to the naloxone, continue to monitor respiratory rate, depth, oxygen saturation and end-tidal CO2 (if available) every 15 minutes x 2, then every 30 minutes x 2, then every 1 hour x 1 after each naloxone dose. Consider transfer to ICU if patient respiratory parameters have not improved after 4 naloxone doses. naloxone (NARCAN) injection 0.4 mg(Linked Group 1) 0.4 mg, Intramuscular, EVERY 2 MIN PRN, opioid reversal, Starting on [place] 09/11/24 at 1659, Administer intramuscular if an intravenous route is not available and notify provider when administered. For unintended sedation or respiratory depression if all of the below criteria are met: ~ respiratory rate LESS than or EQUAL to 8. ~ SaO2 less than 92% and or/end-tidal CO2 is greater than 50. ~ the patient is receiving an opioid, has unintended sedation assessed as RASS (-4) or (-5) and patient is currently not on mechanical ventilation. RASS scale (-4) is deep sedation with no response to voice but movement or eye opening to physical stimulation. RASS scale (-5) is unarousable. Patient Monitoring Once the patient has demonstrated a response to the naloxone, continue to monitor respiratory rate, depth, oxygen saturation and end-tidal CO2 (if available) every 15 minutes x 2, then every 30 minutes x 2, then every 1 hour x 1 after each naloxone dose. Consider transfer to ICU if patient respiratory parameters have not improved after 4 naloxone doses. ondansetron (ZOFRAN ODT) ODT tab 4 mg(Linked Group 2) 4 mg, Oral, EVERY 6 HOURS PRN, nausea/vomiting - 1st line, Starting on [place] 09/11/24 at 1644, This is Step 1 of nausea and vomiting management. If nausea not resolved in 15 minutes, go to Step 2 prochlorperazine (COMPAZINE). With dry hands, peel back foil backing and gently remove tablet. Do not push oral disintegrating tablet through foil backing. Administer immediately on tongue and oral disintegrating tablet dissolves in seconds, then swallow with saliva. Liquid not required. 1305 (See Alternative - Provider: Tigre Gray RN)2105 ($Given - Provider: Vicente Chua RN) ondansetron (ZOFRAN) injection 4 mg(Linked Group 2) 4 mg, Intravenous, EVERY 6 HOURS PRN, nausea/vomiting - 1st line, Administer over 2-5 Minutes, Starting on [place] 09/11/24 at 1644, Give IF patient unable to tolerate oral medication. This is Step 1 of nausea and vomiting management. If nausea not resolved in 15 minutes, go to Step 2 prochlorperazine (COMPAZINE). 1305 ($Given - Provider: Tigre Gray RN)2105 (See Alternative - Provider: Vicente Chua RN) oxyCODONE IR (ROXICODONE) tablet 10 mg(Linked Group 3) 10 mg, Oral, EVERY 4 HOURS PRN, moderate pain, Starting on [place] 09/11/24 at 2010, Separate opioids 1 hour apart from any other sedative. Hold for RASS-2. Hold for confusion/somnolence. 0827 (See Alternative - Provider: Ana Friedman RN)1357 (See Alternative - Provider: Ana Friedman RN) 0133 ($Given - Provider: Vicente Chua RN)0551 ($Given - Provider: Vicente Chua RN)1302 (See Alternative - Provider: Tigre Gray RN)1719 ($Given - Provider: Tigre Gray, TATO) 0350 ($Given - Provider: Vicente Chua, TATO) oxyCODONE IR (ROXICODONE) tablet 15 mg(Linked Group 3) 15 mg, Oral, EVERY 4 HOURS PRN, severe pain, Starting on [place] 09/11/24 at 2010, Separate opioids 1 hour apart from any other sedative. Hold for RASS-2. Hold for confusion/somnolence. 0827 ($Given - Provider: Ana Friedman RN)1357 ($Given - Provider: Ana Friedman RN) 0133 (See Alternative - Provider: Vicente Chua RN)0551 (See Alternative - Provider: Vicente Chua RN)1302 ($Given - Provider: Tigre Gray RN)1719 (See Alternative - Provider: Tigre Gray RN) 0350 (See Alternative - Provider: Vicente Chua, TATO) prochlorperazine (COMPAZINE) injection 5 mg(Linked Group 4) 5 mg, Intravenous, EVERY 6 HOURS PRN, nausea/vomiting - 2nd line, Administer over 1-2 Minutes, Starting on [place] 09/11/24 at 1644, IF patient unable to tolerate oral medication. This is Step 2 of nausea and vomiting management. Give if nausea not resolved 15 minutes after giving ondansetron (ZOFRAN). prochlorperazine (COMPAZINE) tablet 5 mg(Linked Group 4) 5 mg, Oral, EVERY 6 HOURS PRN, nausea/vomiting - 2nd line, Starting on [place] 09/11/24 at 1644, This is Step 2 of nausea and vomiting management. Give if nausea not resolved 15 minutes after giving ondansetron (ZOFRAN). sodium chloride (PF) 0.9% PF flush 3 mL 3 mL, Intracatheter, EVERY 1 MIN PRN, line flush, other, to ensure patency or to lock dormant line, Starting on [place] 09/11/24 at 1644 Linked Groups Order Group 1: naloxone (NARCAN) injection 0.2 mgJump to med 0.2 mg, Intravenous, EVERY 2 MIN PRN, opioid reversal, Starting on [place] 09/11/24 at 1659, Administer intravenous route when available and notify provider when administered. For unintended sedation or respiratory depression if all of the below criteria are met: ~ respiratory rate LESS than or EQUAL to 8. ~SaO2 less than 92% and or/end-tidal CO2 is greater than 50. ~ the patient is receiving an opioid, has unintended sedations assessed as RASS (-3), and is currently not on mechanical ventilation. RASS scale moderate (-3) is movement or eye opening to voice but no eye contact. Patient Monitoring Once the patient has demonstrated a response to the naloxone, continue to monitor respiratory rate, depth, oxygen saturation and end-tidal CO2 (if available) every 15 minutes x 2, then every 30 minutes x 2, then every 1 hour x 1 after each naloxone dose. Consider transfer to ICU if patient respiratory parameters have not improved after 4 naloxone doses. Or naloxone (NARCAN) injection 0.4 mgJump to med 0.4 mg, Intravenous, EVERY 2 MIN PRN, opioid reversal, Starting on [place] 09/11/24 at 1659, Administer intravenous route when available and notify provider when administered. For unintended sedation or respiratory depression if all of the below criteria are met: ~ respiratory rate LESS than or EQUAL to 8. ~ SaO2 less than 92% and or/end-tidal CO2 is greater than 50. ~ the patient is receiving an opioid, has unintended sedation assessed as RASS (-4) or (-5) and patient is currently not on mechanical ventilation. RASS scale (-4) is deep sedation with no response to voice but movement or eye opening to physical stimulation. RASS scale (-5) is unarousable. Patient Monitoring Once the patient has demonstrated a response to the naloxone, continue to monitor respiratory rate, depth, oxygen saturation and end-tidal CO2 (if available) every 15 minutes x 2, then every 30 minutes x 2, then every 1 hour x 1 after each naloxone dose. Consider transfer to ICU if patient respiratory parameters have not improved after 4 naloxone doses. Or naloxone (NARCAN) injection 0.2 mgJump to med 0.2 mg, Intramuscular, EVERY 2 MIN PRN, opioid reversal, Starting on [place] 09/11/24 at 1659, Administer intramuscular if an intravenous route is not available and notify provider when administered. For unintended sedation or respiratory depression if all of the below criteria are met: ~ respiratory rate LESS than or EQUAL to 8. ~SaO2 less than 92% and or/end-tidal CO2 is greater than 50. ~ the patient is receiving an opioid, has unintended sedations assessed as RASS (-3), and is currently not on mechanical ventilation. RASS scale moderate (-3) is movement or eye opening to voice but no eye contact. Patient Monitoring Once the patient has demonstrated a response to the naloxone, continue to monitor respiratory rate, depth, oxygen saturation and end-tidal CO2 (if available) every 15 minutes x 2, then every 30 minutes x 2, then every 1 hour x 1 after each naloxone dose. Consider transfer to ICU if patient respiratory parameters have not improved after 4 naloxone doses. Or naloxone (NARCAN) injection 0.4 mgJump to med 0.4 mg, Intramuscular, EVERY 2 MIN PRN, opioid reversal, Starting on [place] 09/11/24 at 1659, Administer intramuscular if an intravenous route is not available and notify provider when administered. For unintended sedation or respiratory depression if all of the below criteria are met: ~ respiratory rate LESS than or EQUAL to 8. ~ SaO2 less than 92% and or/end-tidal CO2 is greater than 50. ~ the patient is receiving an opioid, has unintended sedation assessed as RASS (-4) or (-5) and patient is currently not on mechanical ventilation. RASS scale (-4) is deep sedation with no response to voice but movement or eye opening to physical stimulation. RASS scale (-5) is unarousable. Patient Monitoring Once the patient has demonstrated a response to the naloxone, continue to monitor respiratory rate, depth, oxygen saturation and end-tidal CO2 (if available) every 15 minutes x 2, then every 30 minutes x 2, then every 1 hour x 1 after each naloxone dose. Consider transfer to ICU if patient respiratory parameters have not improved after 4 naloxone doses. Group 2: ondansetron (ZOFRAN ODT) ODT tab 4 mgJump to med 4 mg, Oral, EVERY 6 HOURS PRN, nausea/vomiting - 1st line, Starting on [place] 09/11/24 at 1644, This is Step 1 of nausea and vomiting management. If nausea not resolved in 15 minutes, go to Step 2 prochlorperazine (COMPAZINE). With dry hands, peel back foil backing and gently remove tablet. Do not push oral disintegrating tablet through foil backing. Administer immediately on tongue and oral disintegrating tablet dissolves in seconds, then swallow with saliva. Liquid not required. Or ondansetron (ZOFRAN) injection 4 mgJump to med 4 mg, Intravenous, EVERY 6 HOURS PRN, nausea/vomiting - 1st line, Administer over 2-5 Minutes, Starting on [place] 09/11/24 at 1644, Give IF patient unable to tolerate oral medication. This is Step 1 of nausea and vomiting management. If nausea not resolved in 15 minutes, go to Step 2 prochlorperazine (COMPAZINE). Group 3: oxyCODONE IR (ROXICODONE) tablet 10 mgJump to med 10 mg, Oral, EVERY 4 HOURS PRN, moderate pain, Starting on [place] 09/11/24 at 2010, Separate opioids 1 hour apart from any other sedative. Hold for RASS-2. Hold for confusion/somnolence. Or oxyCODONE IR (ROXICODONE) tablet 15 mgJump to med 15 mg, Oral, EVERY 4 HOURS PRN, severe pain, Starting on [place] 09/11/24 at 2010, Separate opioids 1 hour apart from any other sedative. Hold for RASS-2. Hold for confusion/somnolence. Group 4: prochlorperazine (COMPAZINE) injection 5 mgJump to med 5 mg, Intravenous, EVERY 6 HOURS PRN, nausea/vomiting - 2nd line, Administer over 1-2 Minutes, Starting on [place] 09/11/24 at 1644, IF patient unable to tolerate oral medication. This is Step 2 of nausea and vomiting management. Give if nausea not resolved 15 minutes after giving ondansetron (ZOFRAN). Or prochlorperazine (COMPAZINE) tablet 5 mgJump to med 5 mg, Oral, EVERY 6 HOURS PRN, nausea/vomiting - 2nd line, Starting on [place] 09/11/24 at 1644, This is Step 2 of nausea and vomiting management. Give if nausea not resolved 15 minutes after giving ondansetron (ZOFRAN). documented in this encounter Care Teams Sccm Administrator Relationship Specialty Start Date End Date Nicolette Parikh MD [facility] & [address] [id number] PCP - General Internal Medicine 10/18/22 Sydney Huff DO [address] [place] [id number] Neurology 08/05/21 Leidy Henderson AuD [address] [place] [id number] [facility] 11/14/21 Sydney Huff DO [address] [place] [id number] Assigned Neuroscience Provider 01/21/22 Rd Chang MD [address] [place] [address] [id number] Assigned PCP 04/19/24 Jorge A Storey MD [address] [place] [id number] Assigned Musculoskeletal Provider 08/17/24 documented as of this encounter
--- OUTSIDE RECORDS SUMMARY | 2024-10-03 12:57 | XMS_ITS | Encounter Summary ---
Author Organization [facility] Address [address] [place] [address]. [place] [address] Care Team Providers Care Reproduction Order Processor Name Role Phone RefugioSydney romano Unavailable [phone] Leidy Henderson Unavailable [phone] Beto Huffistine Unavailable [phone] Nicolette Parikh MD Primary Care Provider Rd Chang MD Unavailable [phone] Jorge A Storey MD Unavailable + [phone] Reason for Visit * Auth/Cert Specialty Diagnoses / Procedures Referred By Arron t Referred To Contact Surgery Diagnoses 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 Cyst of lumbar facet joint [M71.38] Spinal stenosis of lumbar region with neurogenic claudication [M48.062] Procedures [place] NEWELL W/O FACETEC FORAMOT/DSKC 1/2 VRT SEG, LUMBAR Lumbar 5 to Sacral 1 Decompression [facility] [address] [place] [phone] Phone: tel: fax: Referral ID Status Reason Start Date Expiration Date Visits Re quested Visits Authorized [id number] 1 1 Encounter Details Date Type Department Care Team (Late st Contact Info) Description 09/11/2024 9:47 AM CDT - 09/14/2024 2:35 PM CDT Hospital Encounter [facility] [address] [place] [phone] Jorge A Storey MD [address] [place], [place] [address] Vinayak Zhu MD [address] [place], [place] [id number] Discharge Disposition: Home or Self Care Social History Tobacco Use Types Packs/Day Years [...] in an abandoned building, in an overnight prison, or couch-surfing.) Yes 09/11/2024 Are you worried [...] Sign Reading Time Taken Comments Blood Pressure 119/70 09/14/2024 8:54 AM CDT Pulse 67 09/14/2024 8:54 AM CDT Temperature 36.6 C (97.8 F) 09/14/2024 8:54 AM CDT Respiratory Rate 17 09/14/2024 8:54 AM CDT Oxygen Saturation 95% 09/14/2024 8:54 AM CDT Inhaled Oxygen Concentration - - [...] 12:50 PM Jorge A Storey MD [facility] 01/02/2025 10:45 AM Sydney Huff DO [facility] Orthopedic Surgery appointments are at the [facility] [place] ([address] [place] [address]). Call [phone] to schedule a follow-up appointment at this [...] not prescribe medication for anticoagulation. Follow Up ([facility]) Order Comments: Follow up with Dr. Storey 10/28/24 Appointments on [place] and/or [facility] (with [facility] or [facility] provider or service). Call [phone] if you haven't heard regarding these appointments [...] then please page the orthopedic surgery resident health information director. FOLLOWUP: Future Appointments Date Time Provider Department Center 10/28/2024 12:50 PM Jorge A Storey MD [facility] 01/02/2025 10:45 AM Sydney Huff DO [facility] * Hesham Pak MD - 09/14/2024 7:19 AM CDT [facility] Medicine Progress Note - Hospitalist Service, [facility] TEAM 16 Date of Admission: 09/11/2024 Assessment [...] home on POD #2-3. - restarted on DROP FORGER MS contin 15 mg bid - pain managed Chronic pain - DROP FORGER MS contin restarted Essential tremor Polyneuropathy - [...] Anticipated Today Hesham Pak MD Hospitalist Service, GOLD TEAM [address] [place] [address] Securely message with [email or web address] (more info) Text page via [employer] Paging/Directory See signed in provider for up [...] then please page the orthopedic surgery resident health information director. FOLLOWUP: Future Appointments Date Time Provider Department Center 10/28/2024 12:50 PM Jorge A Storey MD [facility] 01/02/2025 10:45 AM Sydney Huff DO [facility] * Hesham Pak MD - 09/13/2024 8:06 AM CDT [facility] Medicine Progress Note - Hospitalist Service, [facility] TEAM 16 Date of Admission: 09/11/2024 Assessment [...] home on POD #2-3. - restarted on DROP FORGER MS contin 15 mg bid Chronic pain - DROP FORGER MS contin restarted Essential tremor Polyneuropathy - [...] Anticipated Tomorrow Hesham Pak MD Hospitalist Service, GOLD TEAM [address] [place] [address] Securely message with [email or web address] (more info) Text page via [facility] Paging/Directory See signed in provider for up [...] Signing Clinician's Name / Credentials (PT) Austin Maxwell, SPT Student Supervision Direct supervision provided Rehab [...] WFL Bed Mobility Bed Mobility supine-sit Supine-Sit Converse (Bed Mobility) verbal cues;supervision Assistive Device (Bed Mobility) bed rails Transfers Transfers sit-stand transfer Sit-Stand Transfer Sit-Stand Converse (Transfers) verbal cues;contact guard Gait/Stairs (Locomotion) Converse Level (Gait) contact guard Assistive Device (Gait) [...] Evaluation Time PT Eval, Low Complexity Minutes (24356) 10 Therapy Certification Start of care date [...] dynamic activities to improve functional performance Minutes (57692) 30 Symptoms Noted During/After Treatment Increased pain [...] (sum of timed and untimed services) 40 [facility] OUTPATIENT PHYSICAL THERAPY PLAN OF TREATMENT FOR OUTPATIENT REHABILITATION Patient's Last Name, First Name, Luis Combs Date of : 1940 Provider's Name [facility] Onset Date: 09/11/24 Start of Care Date: [...] saw and evaluated Luis Markham as an PRINT DECORATOR visit. I personally reviewed the vital signs and medications. Truman Rojo NP Date of Service (when I saw the patient): 09/12/24 * Hesham Pak MD - 09/12/2024 8:18 AM CDT [facility] Medicine Progress Note - Hospitalist Service, GOLD [...] home on POD #2-3. - restarted on DROP FORGER MS contin 15 mg bid Chronic pain - DROP FORGER MS contin restarted Essential tremor Polyneuropathy - [...] Pak MD Hospitalist Service, GOLD TEAM 16 [facility] Securely message with [email or web address] (more info) Text page via [email or web address] Paging/Directory See signed in provider for up [...] be read by a radiologist or a [facility] non-radiologist provider. * Vinayak Zhu MD - [...] then please page the orthopedic surgery resident health information director. FOLLOWUP: Future Appointments Date Time Provider Department Center 09/12/2024 2:15 PM Vonda Vizcarra, PT [facility] [place] 10/28/2024 12:50 PM Jorge A Storey MD [facility] 01/02/2025 10:45 AM Sydney Huff DO [...] Yes 2 RN Skin Assessment Completed with: Flyer RN Breann Celina Suction/Ambu bag/Flowmeter at bedside: Yes Pt status: Stable Temp: [97 ??F (36.1 ??C)-97.7 ??F (36.5 ??C)] 97.5 ??F (36.4 ??C) Pulse: [65-84] 78 Resp: [11-24] 18 BP: (114-123)/(56-86) 121/58 SpO2: [95 %-100 %] 100 % documented in this encounter Consult Notes * Anne-Marie Hogan MD - 09/11/2024 8:55 PM CDTAssociated Order(s): INTERNAL MEDICINE ADULT IP CONSULT FOR [facility] Consult Note - Hospitalist Service, BRIGID TEAM Date of Admission: 09/11/2024 Consult Requested [...] PPX Chronic pain - on MS contin DROP FORGER , consider restarting , has PRN pain medications Essential tremor Polyneuropathy - mostly involves right History thrombocytosis -tells me me sees astronautical engineer and is on hydroxyurea check CBC in AM and decide if can restart and would discussed with discussed with orthopedic surgery as well as it can impact wound healing . Lastplt count I can see in EPIC is way back from 2021 History of DVT right lower extremities in 2021 - sounds like was after trauma thus provoked - no longer on AC Clinically Significant Risk Factors Present on Admission Anne-Marie Hogan MD Hospitalist Service, BRIGID TEAM Securely message with [email or web address] (more info) Text page via [employer] Paging/Directory See signed in provider for up to date coverage information Chief Complaint Back pain History is obtained from the patient and reviewing records in EPIC History of Present Illness Luis Markham is [...] Description: Cholecystectomy; Recorded: 06/21/2010; Comments: July 2002 [place] LAP, VENTRAL HERNIA REPAIR,REDUCIBLE Description: Laparoscopy Repair Of Umbilical Hernia; Recorded: 06/21/2010; Comments: complicated byperforation of the bowel that went unrecognized and led to septic shock [place] LAP, VENTRAL HERNIA REPAIR,REDUCIBLE Description: Laparoscopy Repair Of Ventral Hernia; Recorded: 06/21/2010; Comments: September of 2009 whenexpander removed and mesh placed. [place] LAP,HERNIA REPAIR PROC,UNLIST Description: Laparoscopy Repair Of Hernia; Proc Date: 03/28/2003; Comments: [facility] [place]. [place] REMOVE MESH FROM ABD WALL FOR INFECTION Description: Debridement For Necrot Infect W/ Removal Of Mesh; Recorded: 06/21/2010; Comments: of ventral hernia Apr 2010 at [facility] APPENDECTOMY Description: Appendectomy; Recorded: 06/21/2010; Comments: 1958 [facility] APPENDECTOMY Description: Appendectomy; Proc Date: 05/28/1956; Comments: [facility] PART REMOVAL COLON W ANASTOMOSIS Description: Partial [...] be read by a radiologist or a [facility] non-radiologist provider. documented in this encounter Nursing Notes * Chiqui Ba, RN - 09/11/2024 3:49 PM CDT Images from the original note were not included. PACU to Inpatient Nursing Handoff Patient Luis Markham is a 83 year old male who speaks Gabonese. Procedure Procedure(s): Lumbar 5 to Sacral 1 [...] 50 mcg Given Intravenous Jessica Reynolds APRN APPLICATION DEVELOPMENT SPECIALIST 1415 50 mcg Given Intravenous Jessica Velazquez APRN CRNA HYDROmorphone 1 mg/mL (mg) Total dose: 0.5 mg Date/Time Rate/Dose/Volume Action Route Admin User Audit 09/11/24 1422 0.5 mg Given Intravenous Jessica Velazquez APRN CRNA lidocaine 2% (mg) Total dose: 60 mg Date/Time Rate/Dose/Volume Action Route Admin User Audit 09/11/24 1241 60 mg Given Intravenous Jessica Reynolds APRN CRNA propofol 10 mg/mL (mg) Total dose: 130 mg Date/Time Rate/Dose/Volume Action Route Admin User Audit 09/11/24 1241 130 mg Given Intravenous Jessica Reynolds PRINT DECORATOR APPLICATION DEVELOPMENT SPECIALIST ketamine 10 mg/mL (mg) Total dose: 50 mg Date/Time Rate/Dose/Volume Action Route Admin User Audit 09/11/24 1241 30 mg Given Intravenous Nybo, Jessica L, PRINT DECORATOR APPLICATION DEVELOPMENT SPECIALIST 1330 20 mg Given Intravenous Shirilla, Jessica M, PRINT DECORATOR APPLICATION DEVELOPMENT SPECIALIST rocuronium 10 mg/mL (mg) Total dose: 50 mg Date/Time Rate/Dose/Volume Action Route Admin User Audit 09/11/24 1241 50 mg Given Intravenous Gail, Jessica Freeman PRINT DECORATOR APPLICATION DEVELOPMENT SPECIALIST ePHEDrine 5 mg/mL in NS (mg) Total dose: 25 mg Date/Time Rate/Dose/Volume Action Route Admin User Audit 09/11/24 1328 5 mg Given Intravenous Shirilla, Jessica M, PRINT DECORATOR APPLICATION DEVELOPMENT SPECIALIST 1336 10 mg Given Intravenous Shirilla, Jessica M, PRINT DECORATOR APPLICATION DEVELOPMENT SPECIALIST 1343 5 mg Given Intravenous Shirilla, Jessica M, PRINT DECORATOR APPLICATION DEVELOPMENT SPECIALIST 1349 5 mg Given Intravenous Shirilla, Jessica M, PRINT DECORATOR APPLICATION DEVELOPMENT SPECIALIST phenylephrine (SHANON-SYNEPHRINE) injection (mcg) Total dose: 750 mcg Date/Time Rate/Dose/Volume Action Route Admin User Audit 09/11/24 1300 100 mcg New Bag Intravenous Nybo, Jessica L, PRINT DECORATOR APPLICATION DEVELOPMENT SPECIALIST edited 1302 150 mcg New Bag Intravenous Nybo, Jessica L, PRINT DECORATOR APPLICATION DEVELOPMENT SPECIALIST edited 1319 100 mcg Bolus Intravenous Nybo, Jessica L, PRINT DECORATOR APPLICATION DEVELOPMENT SPECIALIST 1352 100 mcg Bolus Intravenous Shirilla, Jessica M, PRINT DECORATOR APPLICATION DEVELOPMENT SPECIALIST 1401 100 mcg Bolus Intravenous Shirilla, Jessica M, PRINT DECORATOR APPLICATION DEVELOPMENT SPECIALIST 1430 100 mcg Bolus Intravenous Shirilla, Jessica M, PRINT DECORATOR APPLICATION DEVELOPMENT SPECIALIST 1446 100 mcg Bolus Intravenous Fellegy, Mattilyn A, PRINT DECORATOR APPLICATION DEVELOPMENT SPECIALIST dexamethasone (DECADRON) 4 mg/mL (mg) Total dose: 8 mg Date/Time Rate/Dose/Volume Action Route Admin User Audit 09/11/24 1328 8 mg Given Intravenous Shirilla, Jessica M, PRINT DECORATOR APPLICATION DEVELOPMENT SPECIALIST ondansetron 2 mg/mL (mg) Total dose: 4 mg Date/Time Rate/Dose/Volume Action Route Admin User Audit 09/11/24 1410 4 mg Given Intravenous Shirilla, Jessica M, PRINT DECORATOR APPLICATION DEVELOPMENT SPECIALIST sugammadex (BRIDION) 200mg/2mL (mg) Total dose: 100 mg Date/Time Rate/Dose/Volume Action Route Admin User Audit 09/11/24 1450 100 mg Given Intravenous Fellegy, Mattilyn RYLEY Gomez APPLICATION DEVELOPMENT SPECIALIST tranexamic acid (CYKLOKAPRON) 1,930 mg in sodium chloride 0.9 % 50 mL bolus (mg) Total dose: 1,932 mg Dosing weight: 64.4 Date/Time Rate/Dose/Volume Action Route Admin User Audit 09/11/24 1300 1,932 mg New Bag Intravenous Gail, Jessica Freeman APRN APPLICATION DEVELOPMENT SPECIALIST edited tranexamic acid (CYKLOKAPRON) 2 g in [...] mcg/kg/min - 11.592 mL/hr New Bag Intravenous ShirJessica caballero APRN APPLICATION DEVELOPMENT SPECIALIST 1419 Stopped Intravenous Jessica Velazquez APRN APPLICATION DEVELOPMENT SPECIALIST LR (mL) Total volume: 1,400 mL Date/Time Rate/Dose/Volume Action Route Admin User Audit 09/11/24 1234 New Bag Intravenous Jessica Reynolds APRN APPLICATION DEVELOPMENT SPECIALIST 1336 1,000 mL New Bag Intravenous ShirJessica caballero APRN APPLICATION DEVELOPMENT SPECIALIST 1457 400 mL Anesthesia Volume Adjustment Intravenous Fellegy, Mattilyn A, PRINT DECORATOR APPLICATION DEVELOPMENT SPECIALIST albumin 5% (mL) Total volume: 250 mL Date/Time Rate/Dose/Volume Action Route Admin User Audit 09/11/24 1337 New Bag Intravenous Jessica Velazquez APRN CRNA 1348 250 mL Stopped Intravenous Jessica Velazquez APRN CRNA Local Meds No Antibiotics cefazolin (Ancef) - last given at 1241 Pain Patient Currently in Pain: yes PACU meds fentanyl (Sublimaze): 50 mcg (total dose) last given at 1526 hydromorphone (Dilaudid): 0.4 mg (total dose) last given at 1557 GROUP DIRECTOR / epidural No Capnography Yes Telemetry ECG Rhythm: Normal sinus rhythm Inpatient Contracting Specialist Ordered? No Labs Glucose Lab Results Component [...] Date 09/11/24 0700 - 09/12/24 0659 Shift 5378-8348 0944-1757 7966-0671 24 Hour Total INTAKE I.V. 1400 1400 Colloid 250 250 Shift Total(mL/kg) 1650(25.62) 1650(25.62) OUTPUT Blood 10 10 Shift Total(mL/kg) 10(0.16) 10(0.16) Weight (kg) 64.4 64.4 64.4 64.4 Drains / Baker Drain Closed/Suction Inferior;Left;Medial Back Accordion 10 Uzbek (Active) Site Description UTV 09/11/24 1503 Drainage [...] 99 % O2 Device: Nasal cannula (09/11/24 154) Oxygen Delivery: 4 LPM (09/11/24 154) Family/support present significant other, Leonardo Patient belongings [...] discharge to home on POD #2-3. TATO Tejedaera documented in this encounter Miscellaneous Notes * Plan of Care - Kayy Bourne, PT - 09/14/2024 2:35 PM CDT Physical Therapy Discharge Summary Reason for therapy discharge: Discharged to home. Progress towards therapy goal(s). See goals on Care Plan in Epic electronic health record for goal details. Goals [...] shift w/py verbalizing relief, Pain managed per JUL, POC continues Plan of Care Reviewed With: [...] Progress: no change Outcome Evaluation: Afebrile, AOx4, HOOPA, able to turn and change position independently [...] dilaudid x1 Does patient have an identified assistant softball coach: Yes Has goal D/C date and time been discussed with patient: Yes * Plan of Care - Munira Presley RN - 09/12/2024 1:42 AM CDT [id number] Goal Outcome Evaluation: Plan of Care Reviewed [...] is good medication historian. Changes made to DROP FORGER medication list: Added: None Deleted: None Changed: [...] By: Deniz Mullen RPH 09/11/2024 9:41 PM DROP FORGER Med List Medication Sig Note Last Dose/Taking [...] to home on POD #2-3. Indications for medical clerical assistant: I assisted in positioning, exposure, retraction, instrumentation, hemostasis, and wound closure allowing for reduction in anesthesia time and blood loss. Vinayak Zhu MD Spine Fellow Please page me with any questions/concerns during regular weekday hours before 4pm. If there is no response, if it is a weekend, or if it is during evening hours then please page the orthopaedic surgery resident health information director. * Op Note - Jorge A Storey [...] cyst. PRIMARY SURGEON: Jorge A Storey MD NEGATIVE NOTCHER: Vinayak Keen, Fellow Surgeon,The medical clerical assistant was necessary for all phases of [...] with the abdomen hanging free and all bony prominences well padded. The low back was then [...] Description 10/28/2024 12:50 PM CDT Office Visit [facility] [address] [phone] Jorge A Storey MD [address] [place] [id number] 01/02/2025 10:45 AM CDT Office Visit [facility] [address] [place] [phone] Sydney Huff DO [address] [place] [phone] documented as of this encounter Procedures Procedure [...] this encounter Results * Extra Green Top ([place] Heparin) Tube (09/13/2024 7:14 AM CDT) Hold Specimen JIC 09/13/2024 10:16 AM CDT UR [facility] Blood STRUCTURE OF RIGHT UPPER LIMB / Unknown Venipuncture / Unknown 09/13/2024 7:14 AM CDT 09/13/2024 9:13 AM CDT Jorge A Storey MD LAB - BLOOD ORDERAB LES Final Result UR LAB[facility]ORY [facility] Acute Care Lab [address] [facility], [address] [phone] * (ABNORMAL) Hemoglobin (09/13/2024 7:14 AM CDT) Pathologist [facility] Hemoglobin 9.4(L) 13.3 - 17.7 g/dL 09/13/2024 8:00 AM CDT [facility] Blood STRUCTURE OF RIGHT UPPER LIMB / Unknown Venipuncture / Unknown 09/13/2024 7:14 AM CDT 09/13/2024 7:53 AM CDT us Jonh Burch MD LAB - BLOOD ORDERABLES Final Res ult Performing Organization Address [facility] Co de Phone Number UR LABORATORY [facility] Acute Care Lab [facility], Room [place] [phone] * (ABNORMAL) CBC with platelets and differential (09/12/2024 5:49 AM CDT) WBC Count 5.8 4.0 - 11.0 10e3/uL [...] - BLOOD ORDERABLES Final Result UR LABORATORY [facility] Acute Care Lab [address] [facility], [address] [place] [phone], [facility] * Creatinine (09/12/2024 5:49 AM CDT) Creatinine 0.76 0.67 - 1.17 mg/dL 09/12/2024 7:03 AM CDT UR LAB[facility] GFR Estimate 88 >60 mL/min/1.7 3m2 09/12/2024 7:03 AM CDT UR LAB[facility] Comment:eGFR calculated usin 2020 CKD-EPI equation. Blood STRUCTURE OF RIGHT HAND / Unknown Venipuncture / Unknown 09/12/2024 5:49 AM CDT 09/12/2024 6:42 AM CDT us Jonh Burch MD LAB - BLOOD ORDERABLES Final Res ult UR LAB[facility]ORY [facility] Acute Care Lab [address] [facility], [address] [place] [phone] * XR Lumbar Spine Port 1 View (09/11/2024 1:45 PM CDT) Narrative [facility] - 09/11/2024 1:45 PM CDT This exam was marked as non-reportable because it will not be read by a radiologist or a [facility] non-radiologist provider. Jorge A Storey MD IMG DIAGNOSTIC IMAG ING ORDERABLES Final Result [facility] documented in this encounter Visit Diagnoses Diagnosis Lumbar radiculopathy Thoracic or lumbosacral neuritis or radiculitis, unspecified Spinal stenosis of lumbar region with radiculopathy Spinal stenosis, lumbar region, without neurogenic claudication documented in this encounter Admitting Diagnoses Diagnosis Spinal stenosis of lumbar region with radiculopathy Spinal stenosis, lumbar region, without neurogenic claudication documented in this encounter Administered Medications Inactive Administered Medications - up to 3 most recent administrations Medication Order MAR Action Action Date Dose Rate Site acetaminophen (TYLENOL) tablet 975 mg 975 mg, Oral, ONCE, On Flower 09/11/24 at 1030, For 1 dose, Maximum acetaminophen dose from all sources = 75 mg/kg/day not to exceed 4 grams/day., Pre-procedure $Given 09/11/2024 11:09 AM CDT 975 mg acetaminophen (TYLENOL) tablet 975 mg 975 mg, [...] $Given 09/12/2024 5:34 PM CDT 975 mg ceFAZolin (ANCEF) 2 g in dextrose 50 mL intermittent infusion Routine, 2 g, Intravenous, EVERY 8 HOURS, First dose on Flower 09/11/24 at 2030, Indications: Perioperative Pharmacoprophylaxis, Keep until drains removedIndications:Perioperative Pharmacoprophylaxis,Keep until drains removed $New Bag 09/14/2024 1:3 4 PM CDT 2 g $New Bag 09/14/2024 6:46 AM CDT 2 g $New Bag 09/13/2024 9:05 PM CDT 2 g fentaNYL (PF) (SUBLIMAZE) injection 25 mcg 25 mcg, Intravenous, EVERY 5 MIN PRN, moderate pain, Give fentaNYL (SUBLIMAZE) first if HYDROmorphone (DILAUDID) also ordered., Starting on Flower 09/11/24 at 1450, Administer fentaNYL (SUBLIMAZE) for acute pain control. Move to HYDROmorphone (DILAUDID): - IF patient has received up to 200 mcg of fentaNYL (SUBLIMAZE) OR - IF patient has received 2 doses of fentaNYL (SUBLIMAZE) AND continues to have pain score greater than or equal to six (6) or is unable to participate in post op recovery due to pain. Wait 5 minutes AFTER last fentaNYL (SUBLIMAZE) dose before administering HYDROmorphone (DILADUDID). Postop Anesthesia Phase I only. Notify Provider to assess for uncontrolled pain or analgesic side effects. DO NOT revert back to fentanyl (SUBLIMAZE) after administering HYDROmorphone (DILAUDID)., PACU $Given 09/11/2024 3:26 PM CDT 25 mcg $Given 09/11/2024 3:18 PM CDT 25 mcg gabapentin (NEURONTIN) capsule 100 mg 100 mg, Oral, PRE-OP/PRE-PROCEDURE, Starting on Flower 09/11/24 at 1002, For 1 dose, Indications: Neuropathic Pain, Do not administer for Stage 2 spine procedures., Pre-procedureIndications:Neuropathic Pain $Given 09/11/2024 11:09 AM CD T 100 mg HYDROmorphone (PF) (DILAUDID) injection 0.2 mg 0.2 mg, Intravenous, EVERY 5 MIN PRN, moderate pain, Starting on Flower 09/11/24 at 1450, Use FentaNYL (SUBLIMAZE) first if ordered. Maximum total cumulative dose NOT to exceed 2 mg. DO NOT revert back to fentanyl (SUBLIMAZE) after administering HYDROmorphone (DILAUDID). Notify Provider to assess for uncontrolled pain or analgesic side effects., PACU $Given 09/11/2024 3:57 PM CDT 0.2 mg $Given 09/11/2024 3:45 PM CDT 0.2 mg HYDROmorphone (PF) (DILAUDID) injection 0.2-0.5 mg 0.2-0.5 [...] Oral, AT BEDTIME PRN, sleep, Starting on Sun09/11/24 at 2012 $Given 09/11/2024 9:22 PM CDT 5 mg methocarbamol (ROBAXIN) half-tab 250 mg 250 mg, Oral, EVERY 6 HOURS PRN, muscle spasms, Starting on Sun09/11/24 at 1644, Hold for sedation. $Given 09/14/2024 [...] line, Administer over 2-5 Minutes, Starting on Lfower 09/11/24 at 1644, Give IF patient unable to tolerate oral medication. This is Step 1 of nausea and vomiting management. If nausea not resolved in 15 minutes, go to Step 2 prochlorperazine (COMPAZINE). $Given 09/13/2024 1:05 PM CDT 4 mg oxyCODONE IR (ROXICODONE) half-tab 2.5 mg 2.5 mg, Oral, EVERY 4 HOURS PRN, moderate pain, Starting on Flower 09/11/24 at 1623, Hold oral PRN dose for analgesic side effects. Notify provider to assess for uncontrolled pain or analgesic side effects. Hold while on IV GROUP DIRECTOR or with regular IV opioid dosing. $Given 09/11/2024 8:01 PM CDT 2.5 mg oxyCODONE IR (ROXICODONE) tablet 10 mg [...] $Given 09/13/2024 1:06 PM CDT 3 mLs documented in this encounter Active and Recently [...] Reason: Patient/family refused)0857 ($Given - Provider: Tigre Gray RN)1719 ($Given - Provider: Tigre Gray RN) 0140 (Not Given - Provider: Vicente Chua RN - Reason: Patient/family refused)0920 (Not Given - Provider: Dane Mcgarry RN - Reason: Patient/family refused) ceFAZolin (ANCEF) 2 g in dextrose 50 mL intermittent infusion Routine, 2 g, Intravenous, EVERY 8 HOURS, First dose on Flower 09/11/24 at 2030, Indications: Perioperative Pharmacoprophylaxis, Keep until drains removed 0508 ($New Bag - Provider: Munira Presley, TATO)1350 ($New Bag - Provider: Ana Friedman RN)2116 ($New Bag - Provider: Rubina Moore, TATO) 0552 ($New Bag - Provider: Vicente Chua, RN)1306 ($New Bag - Provider: Tigre Gray RN)2105 ($New Bag - Provider: Vicente Chua, RN) 0646 ($New Bag - Provider: Vicente Chua, RN)1334 ($New Bag - Provider: Dane Mcgarry, TATO) hydroxyurea (HYDREA) capsule 500 mg 500 mg, Oral, EVERY EVENING, First dose on Sun09/11/24 at 2130, Indications: Essential Thrombocythemia, Do not crush May require hepatic and/or renal dose or frequency adjustments. See reference link for guidelines., On hold since Sun09/11/2024 at 2134 until manually unheld 1999 (Automatically Held - Provider: Anne-Marie Hogan MD) 1999 (Automatically Held - Provider: Anne-Marie Hogan MD) 164 (Unheld by provider - Provider: Orders Generic [...] SCHEDULED, First dose (after last modification) on Sun09/11/24 at 2200, DO NOT CRUSH. 0822 ($Given - Provider: Ana Friedman RN)1958 ($Given - Provider: Rubina Moore RN) 0857 ($Given - Provider: Tigre Gray RN)2054 (Not Given - Provider: Vicente Chua, RN - Reason: Patient/family refused) 1040 (Not [...] Oral, 2 TIMES DAILY, First dose on Sun09/11/24 at 2000, To prevent constipation. Hold for loose stools Hold for loose stools. 0822 ($Given - Provider: Ana Friedman RN)1958 ($Given - Provider: Rubina Moore RN) 0858 (Not Given - Provider: Tigre Gray RN - Reason: Patient/family refused)2103 ($Given - Provider: Vicente Chua RN) 0918 ($Given - Provider: Dane Mcgarry RN) sodium chloride (PF) 0.9% PF flush 3 mL 3 mL, Intracatheter, EVERY 8 HOURS SCHEDULED, First dose on Sun09/11/24 at 2200, to lock peripheral IV dormant line 0508 ($Given - Provider: Munira Presley RN)1553 (Canceled Entry - Provider: Rubina Moore RN)2149 (Not Given - Provider: Rubina Moore RN - Reason: IV Infusing) 0555 ($Given - Provider: Vicente Chua RN)1306 ($Given - Provider: Tigre Gray RN)2217 ($Given - Provider: Vicente Chua RN) 0647 ($Given - Provider: Vicente Chua RN)1400 (Canceled Entry - Provider: Orders Generic Provider - Comment: Automatically canceled at discontinue of medication order) PRN Medication Order 09/12/2024 09/13/2024 09/14/2024 bisacodyl (DULCOLAX) suppository 10 mg 10 mg, Rectal, DAILY PRN, constipation, Use if magnesium hydroxide (MILK of MAGNESIA) is not effective after 24 hours. May discontinue if patient having bowel movement., Starting on [place] 09/14/24 at 0000, Hold for loose stools. HYDROmorphone (PF) (DILAUDID) injection 0.2-0.5 mg 0.2-0.5 mg, Intravenous, EVERY 3 HOURS PRN, severe pain, For pain that is not controlled with oral medications., Starting on Sun09/11/24 at 2010 2249 ($Given - Provider: Rubina Moore RN) 0919 ($Given - Provider: Dane Mcgarry RN) lidocaine (LMX4) cream Topical, EVERY 1 HOUR [...] Ana Friedman RN)2351 ($Given - Provider: Vicente Chua, TATO) 1719 ($Given - Provider: Tigre Gray RN) 0002 ($Given - Provider: Vicente Chua, RN) naloxone (NARCAN) injection 0.2 mg(Linked Group 1) [...] Tigre Gray RN)1719 ($Given - Provider: Tigre Gray RN) 0350 ($Given - Provider: Vicente Chua, TATO) oxyCODONE IR (ROXICODONE) tablet 15 mg(Linked Group 3) 15 mg, Oral, EVERY 4 HOURS PRN, severe pain, Starting on [place] 09/11/24 at 2010, Separate opioids 1 hour apart from any other sedative. Hold for RASS-2. Hold for confusion/somnolence. 0827 ($Given - Provider: Aan Friedman RN)1357 ($Given - Provider: Ana Friedman [...] (ZOFRAN). documented in this encounter Care Teams Reproduction Order Processor Relationship Specialty Start Date End Date Nicolette Parikh MD [facility] & [address] [id number] PCP - General Internal Medicine 10/18/22 Sydney Huff DO [address] [place] [id number] Neurology 08/05/21 Leidy Henderson AuD [address] [place] [id number] Storage Wharfage Clerk Audiology 11/14/21 Sydney Huff DO [address] [place] [id number] Assigned Neuroscience Provider 01/21/22 Rd Chang MD [address] [place] [id number] Assigned PCP 04/19/24 Jorge A Storey MD [address] [place] [id number] Assigned Musculoskeletal Provider 08/17/24 documented as of this encounter
--- OUTSIDE RECORDS SUMMARY | 2024-10-03 12:57 | XMS_ITS | Clinical Summary ---
Author Organization [facility] Address [address] [place] [address] Care Team Providers Care Adult Educator Name Role Phone Sydney Huff DO Unavailable [phone] Leidy Henderson Unavailable [phone] Sydney Huff DO Unavailable [phone] Nicolette Parikh MD Primary Care Provider Rd Chang MD Unavailable [phone] Jorge A Storey MD Unavailable [phone] Allergies Active Allergy Reactions Criticality Noted Date Comments Amoxicillin Hives Medium 08/22/2017 Possibly late reaction. Medications oxyCODONE (ROXICODONE) 5 MG tablet Take 15 mg by mouth 3 times daily as needed for breakthrough pain. 5 Active morphine (MS CONTIN) 15 MG CR tablet Take 1 tablet by mouth every 12 hours. 5 Active Ascorbic Acid (VITAMIN C) 500 MG CAPS Take 1 tablet by mouth daily. Active hydroxyurea (HYDREA) 500 MG capsule Take 500 mg by mouth every evening 5 Active prochlorperazin e (COMPAZINE) 5 MG tablet Take 5 mg by mouth 2 times daily. 5 Active sennosides (SENOKOT) 8.6 MG tablet Take 2 tablets by mouth at bedtime. Active Active Problems Problem Noted Date Diagnosed Date Thrombocytosis 09/03/2024 Cyst of lumbar facet joint 09/03/2024 Acute right-sided low back pain without sciatica 01/04/2022 Acute Bronchitis Overview (11/09/2020): Created by Conversion Closed Fracture Of The Distal Third Of The Right Clavicle Overview (11/09/2020): Created by Conversion Head Injury Overview (11/26/2020): Created by Conversion Replacement Utility updated for latest IMO load Resolved Problems Problem Noted Date Diagnosed Date Resolved Date Spinal stenosis of lumbar re gion with radiculopathy 09/13/2024 09/14/2024 Lumbar radiculopathy 09/11/2024 025 Encounters Date Type Department Care Team Description 09/11/2024 12:28 PM CDT Anesthesia Event [facility] [address] [place] [phone] Margaret Rao MD Bakke, Dana M, PA-C 09/11/2024 11:55 AM CDT - 09/11/2024 2:15 PM CDT Surgery [facility] [address] [place] [address] [phone] Jorge A Storey MD Lumbar 5 to Sacral 1 Decompression 09/11/2024 9:47 AM CDT - 09/14/2024 2:35 PM CDT Hospital Encounter [facility] [address] [place] [phone] Jorge A Storey MD Bisbal-Matos, Luis, MD Discharge Disposition: Home or Self Care 09/09/2024 Travel 09/03/2024 12:15 PM CDT Virtual Visit [facility] Preoperative Assessment [address] [phone] Melody Wood PA-C NO SHOW (Primary Dx) 09/03/2024 PRE VISIT [facility] Preoperative Assessment [address] [phone] Melody Wood PA-C Previsit 09/02/2024 Telephone [facility] Orthopedic [address] [phone] Jorge A Storey MD Patient Request (Lab orders); Clinic Care Coordination - Follow-up 09/01/2024 Documentation Only [facility] [address] [place] [phone] Jorge A Storey MD 09/01/2024 Documentation Only [facility] [place] [phone] Nicolette Parikh MD 09/01/2024 Telephone [facility] Neurosurgery [address] [phone] Jorge A Storey MD Call Back (Pt spouse calling with several questions) 08/27/2024 Telephone [facility] Neurosurgery [address] [phone] Jorge A Storey MD Schedule Surgery (Dr Storey ) 08/26/2024 9:40 AM CDT Virtual Visit [facility] [address] [phone] Jorge A Storey MD Cyst of lumbar facet joint (Primary Dx); Spinal stenosis of lumbar region with neurogenic claudication 08/21/2024 Telephone [facility] [address] [phone] Jorge A Storey MD Call Back (update); Clinic Care Coordination - Follow-up 08/12/2024 11:50 AM CDT Virtual Visit [facility] [address] [phone] Jorge A Storey MD Hx of low back pain (Primary Dx) 08/10/2024 Telephone [facility] [address] [place] [phone] Lucy Harrison, manager labor delivery Request 08/06/2024 6:28 PM CDT - 08/06/2024 11:59 PM CDT Hospital Encounter [facility] [address] [place] [phone] Jorge A Storey MD Hx of low back pain Discharge Disposition: Home or Self Care 08/06/2024 Travel 08/05/2024 Telephone [facility] [address] [phone] Jorge A Storey MD 08/04/2024 Telephone [facility] Neurosurgery [address] [phone] Jorge A Storey MD 07/22/2024 1:00 PM LONG TERM CARE SOCIAL WORKER Office Visit [facility] [address] [phone] Jorge A Storey MD Hx of low back pain; Cyst of lumbar facet joint 07/22/2024 12:40 PM LONG TERM CARE SOCIAL WORKER Ancillary Procedure [facility] [address] [phone] Jorge A Storey MD Acute right-sided low back pain without sciatica 07/22/2024 Travel 07/22/2024 PRE VISIT [facility] Neurosurgery [address] [phone] Jorge A Storey MD *-*INCOMING RECORDS*-* 07/17/2024 Orders Only [facility] [address] [phone] Jorge A Storey MD Acute right-sided low back pain without sciatica (Primary Dx) 07/16/2024 Telephone [facility] [address] [phone] Jorge A Storey MD 07/16/2024 PRE VISIT [facility] [place] [address] [facility] [address] [place] [phone] Avel Jose MD Previsit 07/11/2024 Telephone [facility] [address] [place] [phone] Virgen Green LPN 07/11/2024 Telephone [facility] [address] [place] [phone] Virgen Green LPN 07/10/2024 Transcribe Orders GENERIC EXTERNAL DATA DEPARTMENT Provider, Generic External Data Hx of low back pain (Primary Dx); Cyst of lumbar facet joint 07/10/2024 Medical Correspondence [facility] Information Management [address] [phone] Scan, Non-Provider from Last 3 Months Immunizations Immunization Administration Dates Next Due COVID-19 MONOVALENT 12+ (Pfizer) 04/01/2021,04/0 10/2020,08/10/2020 Influenza (High Dose) Trival ent,PF (Fluzone) 03/20/2019 Pneumo Conj 13-V (2010&after) 02/10/2019 Pneumococcal 23 valent 03/19/2006 TDAP (Adacel,Boostrix) 03/03/2014 Family History Medical History Relation Comments Alcoholism Father Relation Status Comments Father Mother unknown Social History Tobacco Use Types Packs/Day Years [...] Answer Date Recorded Do you have housing? (Analisa magana is defined as stable permanent housing and does not include staying outside in a car, in a tent, in an abandoned building, in an overnight alf, or couch-surfing.) Yes 09/11/2024 Are you worried [...] on file Sexual Orientation Not on file Last Filed Vital Signs Vital Sign Reading [...] Mass Index 21.27 09/11/2024 10:05 AM CDT Plan of Treatment Upcoming Encounters Date Type Department Care Team (Late st Contact Info) Description 10/28/2024 12:50 PM CDT Office Visit [facility] [place] [address] [facility] 4th [place] [phone] Jorge A Storey MD [address] [place] [phone] 01/02/2025 10:45 AM CDT Office Visit [facility] Neurology Clinic [address] [phone] Sydney Huff DO [address] [place] [address] [phone] Health Maintenance Due Date Last Done Comments ADVANCE CARE PLANNING 1940 ZOSTER IMMUNIZATION (1 of 2) 1957 RSV VACCINE (1 - 1-dose 75+ series) 2013 ANNUAL REVIEW OF HM ORDERS 03/22/2023 03/22/2022 COVID-19 Vaccine ( season) 2024 04/01/2021, 08/31/2020, 08/10/2020 MEDICARE ANNUAL WELLNESS VISIT 02/20/2024 02/19/2023 DTAP/TDAP/TD IMMUNIZATION (2 - Td or Tdap) 03/03/2024 03/03/2014 INFLUENZA VACCINE (Season Ended) 2025 03/20/2019 FALL RISK ASSESSMENT 04/15/2025 04/15/2024, 03/22/2022, 02/10/2019 Pneumococcal Vaccine: 50+ Years Completed 02/10/2019, 03/19/2006 PHQ-2 (once per calendar year) Completed 09/03/2024, 07/22/2024, 04/15/2024, Additional history exists HPV IMMUNIZATION Aged Out No longer e ligible based on patient's age to complete this topic MENINGITIS IMMUNIZATION Aged Out No l onger eligible based on patient's age to complete this topic Procedures Procedure Name Priority Date/Time Associated Diagnosis Comments EXTRA GREEN TOP (LITHIUM HEPARIN) TUBE Routine 09/13/2024 7:14 AM CDT EXTRA TUBE Routine 09/13/2024 7:14 AM CDT HEMOGLOBIN Routine 09/13/2024 7:14 AM CDT CBC WITH PLATELETS & DIFFERENTIAL Routine 09/12/2024 5:49 AM CDT CBC WITH PLATELETS AND DIFFERENTIAL Routine 09/12/2024 5:49 AM CDT CREATININE Routine 09/12/2024 5:49 AM CDT XR LUMBAR SPINE PORT 1 VIEW Routine 09/11/2024 1:45 PM CDT ANE AIRWAY ETT PERFORMABLE Routine 09/11/2024 12:45 PM CDT NEWELL W/O FACETEC FORAMOT/DSKC / VRT SEG, LUMBAR 09/11/2024 12:34 PM CDT 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 Special Needs Estimated Blood Loss: 25ccH&P to be completed by?PLACE PNEUMOBOOTS ON PATIENT IN PRE-OP PHQ-9 DEPRESSION SCREENING ORDER Routine 08/25/2024 POTASSIUM (EXTERNAL RESULT) Routine 08/20/2024 11:04 AM CDT CREATININE (EXTERNAL RESULT) Routine 08/20/2024 11:04 AM CDT GLUCOSE (EXTERNAL RESULT) Routine 08/20/2024 11:04 AM CDT ALT (EXTERNAL RESULT) Routine 08/20/2024 11:04 AM CDT AST (EXTERNAL RESULT) Routine 08/20/2024 11:04 AM CDT LAB RESULT - HIM SCAN 08/20/2024 12:00 AM CDT LAB RESULT - HIM SCAN 08/20/2024 12:00 AM CDT LAB RESULT - HIM SCAN 08/20/2024 12:00 AM CDT NUCLEAR IMAGING - HIM SCAN 08/07/2024 12:00 AM CDT NUCLEAR IMAGING - HIM SCAN 08/07/2024 12:[address] LUMBAR SPINE W/O CONTRAST Routine 08/06/2024 6:42 PM CDT Hx of low back pain POTASSIUM (EXTERNAL RESULT) Routine 08/04/2024 10:47 AM CDT CREATININE (EXTERNAL RESULT) Routine 08/04/2024 10:47 AM CDT GLUCOSE (EXTERNAL RESULT) Routine 08/04/2024 10:47 AM CDT LAB RESULT - HIM SCAN 08/04/2024 12:00 AM CDT EKG CARDIAC - HIM SCAN 08/04/2024 12:00 AM CDT EKG CARDIAC - HIM SCAN 08/04/2024 12:00 AM CDT EKG CARDIAC - HIM SCAN 08/04/2024 12:[address] IMAGING - HIM SCAN 08/04/2024 12:[address] IMAGING - HIM SCAN 08/04/2024 12:00 AM CDT XR LUMBAR SPINE 2/3 VIEWS Routine 07/22/2024 12:46 PM LONG TERM CARE SOCIAL WORKER Acute right-sided low back pain without sciatica POTASSIUM (EXTERNAL RESULT) Routine 07/09/2024 2:59 PM LONG TERM CARE SOCIAL WORKER CREATININE (EXTERNAL RESULT) Routine 07/09/2024 2:59 PM LONG TERM CARE SOCIAL WORKER GLUCOSE (EXTERNAL RESULT) Routine 07/09/2024 2:59 PM LONG TERM CARE SOCIAL WORKER AST (EXTERNAL RESULT) Routine 07/09/2024 2:59 PM LONG TERM CARE SOCIAL WORKER ALT (EXTERNAL RESULT) Routine 07/09/2024 2:59 PM LONG TERM CARE SOCIAL WORKER LAB RESULT - HIM SCAN 07/09/2024 12:00 AM LONG TERM CARE SOCIAL WORKER EKG CARDIAC - HIM SCAN 07/09/2024 12:00 AM LONG TERM CARE SOCIAL WORKER EKG CARDIAC - HIM SCAN 07/09/2024 12:00 AM LONG TERM CARE SOCIAL WORKER from Last 3 Months Results * Extra Green Top ([place] Heparin) Tube (09/13/2024 7:14 AM CDT) Hold Specimen JIC 09/13/2024 10:16 AM CDT UR LABORATORY Blood STRUCTURE OF RIGHT UPPER LIMB / Unknown Venipuncture / Unknown 09/13/2024 7:14 AM CDT 09/13/2024 9:13 AM CDT us Jorge A Storey MD LAB - BLOOD ORDERAB LES Final Result UR LABORATORY [facility] [address] [place] [address], [address] * (ABNORMAL) Hemoglobin (09/13/2024 7:14 AM CDT) Hemoglobin 9.4(L) 13.3 - 17.7 g/dL 09/13/2024 8:00 AM CDT UR LABORATORY Blood STRUCTURE OF RIGHT UPPER LIMB / Unknown Venipuncture / Unknown 09/13/2024 7:14 AM CDT 09/13/2024 7:53 AM CDT us Jonh Burch MD LAB - BLOOD ORDERABLES Final Res ult UR LABORATORY [facility] [address] [place] [address], [address] * (ABNORMAL) CBC with platelets and [...] MD LAB - BLOOD ORDERABLES Final Result Performing Organization Address [facility] Co de Phone Number UR LABORATORY [facility] [address] [place] [address], Room [place] [phone] * Creatinine (09/12/2024 5:49 AM CDT) Creatinine 0.76 0.67 - 1.17 mg/dL 09/12/2024 7:03 AM CDT UR LABORATORY GFR Estimate 88 >60 mL/min/1.7 3m2 09/12/2024 7:03 AM CDT UR LABORATORY Comment:eGFR calculated us2020 CKD-EPI equation. Blood STRUCTURE OF RIGHT HAND / Unknown Venipuncture / Unknown 09/12/2024 5:49 AM CDT 09/12/2024 6:42 AM CDT us Jonh Burch MD LAB - BLOOD ORDERABLES Final Res ult Performing Organization Address [facility] de Phone Number UR LABORATORY [facility] Lab [address] [place] [address], Room [place] [phone] * XR Lumbar Spine Port 1 View (09/11/2024 1:45 PM CDT) Narrative [facility] - 09/11/2024 1:45 PM CDT This exam was marked as non-reportable because it will not be read by a radiologist or a [facility] non-radiologist provider. us Jorge A Storey MD IMG DIAGNOSTIC IMAG ING ORDERABLES Final Result Performing Organization Address [facility] Co de Phone Number [facility] * ANE AIRWAY ETT PERFORMABLE (09/11/2024 12:45 PM CDT) Narrative Jessica Reynolds APRN [employer]ER TRUCK DRIVER - 09/11/2024 12:45 PM CDT Jessica Reynolds APRN COMPANY T[employer]ER TRUCK DRIVER 09/11/2024 1:22 PM Airway Patient location during procedure: OR Procedure Start/Stop Times: 09/11/2024 12:45 PM Staff - COMPANY TANKER TRUCK DRIVER: Jessica Reynolds APRN COMPANY TANKER TRUCK DRIVER Performed By: COMPANY TANKER TRUCK DRIVER Consent for Airway Urgency: elective Indications and Patient Condition Indications for airway management: ev-procedural Induction type:intravenous Mask difficulty assessment: 1 - vent by mask Final Airway Details Final airway type: endotracheal airway Successful airway: ETT - single and Oral Endotracheal Airway Details ETT size (mm): 7.5 Cuffed: yes Cuff volume (mL): 10 Successful intubation technique: video laryngoscopy VL Blade Size: MAC 3 Grade View of Cords: 1 Adjucts: stylet Position: Right Measured from: gums/teeth Secured at (cm): 23 Bite block used: Soft Post intubation assessment Placement verified by: capnometry, equal breath sounds and chest rise Number of attempts at approach: 1 Secured with: tape Ease of procedure: easy Dentition: Intact and Unchanged Medication(s) Administered Medication Administration Time: 09/11/2024 12:45 PM us Margaret Conrad MD [place] ANESTHESIA Final Result * PHQ-9 DEPRESSION SCREENING ORDER (08/25/2024) PHQ9 SCORE 9 Yuan Aburto - 08/25/2024 [facility] - Progress Note us Provider Outside OTHER Final Result * Potassium (External Result) (08/20/2024 11:04 AM CDT) Only the most recent of3 resultswithin the time period is included. Potassium (External) 4.3 3.6 - 5.1 mmol/L [facility] Blood 08/20/2024 11:0 4 AM CDT Narrative [facility] - 08/20/2024 11:04 AM CDT [facility] - External Lab Results us Provider Outside LAB - HIM EXTERNAL RESULT Final Result [facility] [address] [place] [address], [facility] [[email or web address]] [phone] * Glucose (External Result) (08/20/2024 11:04 AM CDT) Only the most recent of3 resultswithin the time period is included. Glucose (External) 84 60 - 115 mg/dL [facility] Blood 08/20/2024 11:0 4 AM CDT [facility] - 08/20/2024 11:04 AM CDT [facility] - External Lab Results us Provider Outside LAB - HIM EXTERNAL RESULT Final Result Performing Organization Address City/[facility]/ZIP Co de Phone Number [facility] [address] [place] [address], [facility] [[email or web address]] [phone] * Creatinine (External Result) (08/20/2024 11:04 AM CDT) Only the most recent of3 resultswithin the time period is included. Creatinine (External) 0.8 0.5 - 1.5 mg/dL [facility] Blood 08/20/2024 11:0 4 AM CDT [facility] - 08/20/2024 11:04 AM CDT [facility] - External Lab Results us Provider Outside LAB - HIM EXTERNAL RESULT Final Result Performing Organization Address [facility] Co de Phone Number [facility] [address] [place] [address], [facility] [[email or web address]] [phone] * AST (External Result) (08/20/2024 11:04 AM CDT) Only the most recent of2 resultswithin the time period is included. AST (External) 32 12 - 35 U/L [facility] Blood 08/20/2024 11:0 4 AM CDT [facility] - 08/20/2024 11:04 AM CDT [facility] - External Lab Results us Provider Outside LAB - HIM EXTERNAL RESULT Final Result Performing Organization Address City/[facility]/ZIP Co de Phone Number [facility] [address] [place] [address], [facility] [[email or web address]] [phone] * ALT (External Result) (08/20/2024 11:04 AM CDT) Only the most recent of2 resultswithin the time period is included. ALT (External) 26 4 - 50 U/L [facility] Blood 08/20/2024 11:0 4 AM CDT Narrative [facility] - 08/20/2024 11:04 AM CDT [facility] - External Lab Results us Provider Outside LAB - HIM EXTERNAL RESULT Final Result [facility] [address] [place] [address], [facility] [[email or web address]] [phone] * Lab Result - HIM Scan (08/20/2024 12:00 AM CDT) Only the most recent of5 resultswithin the time period is included. 08/20/2024 us Provider Outside NON-BEAKER LAB TESTING Final Result * Nuclear Imaging - HIM Scan (08/07/2024 12:00 AM CDT) Only the most recent of2 resultswithin the time period is included. Anatomical Region Laterality Modality Other 08/07/2024 us Provider Outside IMG NM ORDERABLES Final Result * CT Lumbar Spine w/o Contrast (08/06/2024 6:42 PM CDT) Anatomical Region Laterality Modality Spine, SUBRAD CT NEURO, UMP CT SPINE, RAD CT Computed Tomography 08/06/2024 6:42 PM CDT Impressions 08/07/2024 9:56 AM CDT IMPRESSION: 1. Extensive degenerative changes most significantly at L5-S1 with right-sided facet disease and synovial cystic changes contributing to severe right lateral recess narrowing and moderate canal stenosis with contacting and displacement of the descending right S1 nerve root. Narrative 08/07/2024 9:56 AM CDT EXAM: CT LUMBAR SPINE W/O CONTRAST LOCATION: [facility] DATE: 08/06/2024 INDICATION: Hx of low back pain COMPARISON: Plain film 07/22/2024 MRI 05/15/2024 TECHNIQUE: Routine CT Lumbar Spine without IV contrast. Multiplanar reformats. Dose reduction techniques were used. FINDINGS: Vertebral body heights are maintained. Multilevel mild loss of disc height. No anterolisthesis or retrolisthesis. L1-L2: No canal stenosis or significant foraminal narrowing. L2-L3: Broad-based disc bulge eccentric to the left. Mild to moderate canal stenosis. No significant foraminal narrowing. L3-L4: Broad-based disc bulge with severe canal stenosis. Ligamentum flavum hypertrophy and facet arthrosis. Moderate bilateral foraminal narrowing. L4-L5: Broad-based disc bulge. Moderate canal stenosis. Ligamentum flavum hypertrophy and facet arthrosis. Moderate bilateral foraminal narrowing. L5-S1: There is redemonstration of significant asymmetric facet disease with prominent synovial cyst projecting inferiorly and medially contributing to lateral recess narrowing on the right with severe right lateral recess narrowing and mass effect upon the descending nerve roots at this level particularly the right S1 segment. Moderate bilateral foraminal narrowing, right greater than left. Procedure Note Yan Wyatt MD - 08/07/2024 EXAM: CT LUMBAR SPINE W/O CONTRAST LOCATION: [facility] DATE: 08/06/2024 INDICATION: Hx of low back pain COMPARISON: Plain film 07/22/2024 MRI 05/15/2024 TECHNIQUE: Routine CT Lumbar Spine without IV contrast. Multiplanarreformats. Dose reduction techniques were used. FINDINGS: Vertebral body heights are maintained. Multilevel mild loss of discheight. No anterolisthesis or retrolisthesis. L1-L2: No canal stenosis or significant foraminal narrowing. L2-L3: Broad-based disc bulge eccentric to the left. Mild to moderatecanal stenosis. No significant foraminal narrowing. L3-L4: Broad-based disc bulge with severe canal stenosis. Ligamentumflavum hypertrophy and facet arthrosis. Moderate bilateral foraminalnarrowing. L4-L5: Broad-based disc bulge. Moderate canal stenosis. Ligamentum flavumhypertrophy and facet arthrosis. Moderate bilateral foraminal narrowing. L5-S1: There is redemonstration of significant asymmetric facet diseasewith prominent synovial cyst projecting inferiorly and mediallycontributing to lateral recess narrowing on the right with severe rightlateral recess narrowing and mass effect upon the descending nerve roots at this level particularly the right [id number]. Moderate bilateral foraminal narrowing, right greater thanleft. IMPRESSION: 1. Extensive degenerative changes most significantly at L5-S1 withright-sided facet disease and synovial cystic changes contributing tosevere right lateral recess narrowing and moderate canal stenosis withcontacting and displacement of the descending right S1 nerve root. us Jorge A Storey MD IMG CT ORDERABLES F inal Result * CT Imaging - HIM Scan (08/04/2024 12:00 AM CDT) Only the most recent of2 resultswithin the time period is included. Anatomical Region Laterality Modality Computed Tomogra phy 08/04/2024 us Provider Outside IMG CT ORDERABLES Final Result * EKG Cardiac - HIM Scan (08/04/2024 12:00 AM CDT) Only the most recent of5 resultswithin the time period is included. 08/04/2024 us Provider Outside ECG ORDERABLES Final Result * XR Lumbar Spine 2/3 Views (07/22/2024 12:46 PM LONG TERM CARE SOCIAL WORKER) Anatomical Region Laterality Modality Spine, T-spine, L-spine, Abdomen/Pelvis Computed Radiography Impressions 07/22/2024 2:40 PM LONG TERM CARE SOCIAL WORKER Impression: 1. No acute osseous abnormality. 2. Multilevel degenerative changes, greatest in the lower lumbar spine. TORRIE CARTER DO Narrative 07/22/2024 2:40 PM LONG TERM CARE SOCIAL WORKER Exam: XR LUMBAR SPINE 2/3 VIEWS, 07/22/2024 12:46 PM Indication: Acute right-sided low back pain without sciatica Comparison: Radiograph 04/15/2024 Findings: Standing Flexion and extension lateral views of the lumbar spine were obtained. 5 lumbar type vertebral bodies are assumed for the purpose of this dictation. No acute osseous abnormality. Similar multilevel degenerative changes of the lumbar spine with mild disc space narrowing at L4-5 and L5-S1. There is also lower lumbar predominant facet arthropathy. Normal sagittal alignment on flexion and extension views. Scattered abdominal surgical clips. Scattered vascular calcifications. Procedure Note Torrie Carter MD - 07/22/2024 Exam: XR LUMBAR SPINE 2/3 VIEWS, 07/22/2024 12:46 PM Indication: Acute right-sided low back pain without sciatica Comparison: Radiograph 04/15/2024 Findings: Standing Flexion and extension lateral views of the lumbar spine were obtained. 5 lumbar type vertebral bodies are assumed for the purpose of this dictation. No acute osseous abnormality. Similar multilevel degenerative changes of the lumbar spine with mild disc space narrowing at L4-5 and L5-S1. There is also lower lumbar predominant facet arthropathy. Normal sagittal alignment on flexion and extension views. Scattered abdominal surgical clips. Scattered vascular calcifications. Impression: 1. No acute osseous abnormality. 2. Multilevel degenerative changes, greatest in the lower lumbar spine. TORRIE CARTER DO Jorge A Storey MD IMG DIAGNOSTIC IMAG ING ORDERABLES Final Result from Last 3 [employer]ths Insurance [facility] MEDIC[facility] Advance Directives For more information, please contact: [phone] * Full Code (Latest Code Status on File) Date Activated Date Inactivated Comments 09/11/2024 4:44 PM 09/14/2024 4:41 PM All basic an d advanced life-sustaining interventions are performed as appropriate Question Answer Comments Code status determined by: Discussion with patie nt/ legal decision maker Care Teams Adult Educator Relationship Specialty Start Date End Date Nicolette Parikh MD [address] [address] PCP - General Internal Medicine 10/18/22 Sydney Huff DO [address] [place] [address] Neurology 08/05/21 Leidy Henderson AuD [address] [place] [address] Can Filling And Closing Machine Tender Audiology 11/14/21 Sydney Huff DO [address] [place] [address] Assigned Neuroscience Provider 01/21/22 Rd Chang MD [address] [place] [address] [place] [address] Assigned PCP 04/19/24 Jorge A Storey MD [address] [place] [address] Assigned Musculoskeletal Provider 08/17/24
--- OUTSIDE RECORDS SUMMARY | 2024-10-03 12:57 | XMS_ITS | Encounter Summary ---
Author Organization [place] Address [address] [place] [address]. [place] [address] Care Team Providers Care Community Health Nurse Supervisor Name Role Phone RefugioSydney romano Unavailable [phone] Leidy Henderson Unavailable [phone] Refugio Sydneyyanni CAMPBELL Unavailable [phone] Nicolette Parikh MD Primary Care Provider Rd Chang MD Unavailable [phone] Jorge A Storey MD Unavailable + [phone] Reason for Visit * Auth/Cert Specialty Diagnoses / Procedures Referred By Arron t Referred To Contact Surgery Diagnoses 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 Cyst of lumbar facet joint [M71.38] Spinal stenosis of lumbar region with neurogenic claudication [M48.062] Procedures IN [place] W/O FACETEC FORAMOT/DSKC 1/2 VRT SEG, LUMBAR Lumbar 5 to Sacral 1 Decompression Formerly [facility] [address] [place] [address] [place] [address] Phone: tel: fax: Referral ID Status Reason Start Date Expiration Date Visits Re quested Visits Authorized [id number] 1 1 Encounter Details Date Type Department Care Team (Late st Contact Info) Description 09/11/2024 12:28 PM CDT Anesthesia Event Formerly [facility] [address] [place] [address] [place] [address] Margaret Rao MD ANESTHESIOLOGY DEPT [address] [place], [place] [address] Jessica Velazquez APRN [place] [address] [place] [address] Anesthesia Record Procedure Summary Procedure Name Responsible Anesthesiologist Anesthesia Start Time Anesthesia Stop Time Lumbar 5 to Sacral 1 Decompression (Spine) Margaret Rao MD 09/11/24 1228 09/11/24 1505 Events Date Time Event Comment 09/11/2024 0708 1037 TEMPLATE FITTER Ready for Procedure 1228 An Start Anesthesia [...] signs recorded are pre-induction. SHAISTA PERALES APRN TEMPLATE FITTER 1241 An Induction 1245 An Intubation 1300 Anesthesia Ready for Procedu re 1303 MD Present 1323 AN INCISION 1436 TEMPLATE FITTER Handoff I, Luisana Lawson APRN CRNA, attest that I have reviewed all the significant information with the provider relieving me and assuming care of this patient. All questions were answered, anesthesia and OR team are aware of change of TEMPLATE FITTER. 1457 AN Extubation All extubation criteria met prior to removal. 1505 an stop data 1505 An Stop Electronically signed by Luisana Lawson APRN CRNA on September 11, 2024 3:05 PM Meds Name Total fentaNYL 50 mcg/mL 100 mcg HYDROmorphone 1 mg/mL 0.5 mg lidocaine 2% 60 mg propofol 10 mg/mL 130 mg ketamine 10 mg/mL 50 mg rocuronium 10 mg/mL 50 mg ePHEDrine 5 mg/mL in NS 25 mg phenylephrine (SHANON-SYNEPHRINE) injection 750 mcg dexamethasone (DECADRON) 4 mg/mL 8 mg ondansetron 2 mg/mL 4 mg sugammadex (BRIDION) 200mg/2mL 100 mg tranexamic acid (CYKLOKAPRON) 1,930 mg i n sodium chloride 0.9 % 50 mL bolus 1,932 mg tranexamic acid (CYKLOKAPRON) 2 g in sod ium chloride 0.9 % 100 mL infusion 515.2 mg ceFAZolin Sodium (ANCEF) injection 2 g 2 g dexmedeTOMIDine (PRECEDEX) 4 mcg/mL bolu s 8 mcg phenylephrine 0.1 mg/mL infusion (mcg/kg /min) 0.31 mg LR 1,400 mL albumin 5% 250 mL * Agents Name O2 N2O Air Exp Sevoflurane Exp Isoflurane Exp Desflurane Ins Sevoflurane Ins Isoflurane Ins Desflurane * Blood No blood administrations on file. [...] Grade View: 1; Adjucts: Stylet; Placement Person: TEMPLATE FITTER; Attempts: 1 09/11/24 1245 by Jessica Reynolds APRN TEMPLATE FITTER 09/11/24 1457 by Luisana Lawson APRN TEMPLATE FITTER Drain 09/11/24; 1414; Closed/Suction; Inferior, Left, Medial; Back; Accordion; 10 Danish 09/11/24 1414 by Koko Dinh RN 09/14/24 [...] in an abandoned building, in an overnight residential, or couch-surfing.) Yes 09/11/2024 Are you worried [...] on file documented as of this encounter OR Notes * Anesthesia Preprocedure Evaluation - Margaret Rao MD - 09/17/2024 8:05 AM CDT Anesthesia Pre-Procedure Evaluation Patient: Luis Markham : 1940 Procedure : Procedure(s): Lumbar 5 to Sacral 1 Decompression Past Medical History: Diagnosis Date Acute bronchitis [...] region with neurogenic claudication Thrombocytosis Past Surgical History: Procedure Laterality Date HC REMOVAL GALLBLADDER Description: Cholecystectomy; Recorded: 06/21/2010; Comments: July 2002 LAMINECTOMY LUMBAR ONE LEVEL N/A 09/11/2024 Procedure: Lumbar 5 to Sacral 1 Decompression; Surgeon: Jorge A Storey MD; Location: [facility] IN [place], VENTRAL HERNIA REPAIR,REDUCIBLE Description: Laparoscopy Repair Of Umbilical Hernia; Recorded: 06/21/2010; Comments: complicated byperforation of the bowel that went unrecognized and led to septic shock IN LAP, VENTRAL HERNIA REPAIR,REDUCIBLE Description: Laparoscopy Repair Of Ventral Hernia; Recorded: 06/21/2010; Comments: September of 2009 whenexpander removed and mesh placed. IN LAP,HERNIA REPAIR PROC,UNLIST Description: Laparoscopy Repair Of Hernia; Proc Date: 03/28/2003; Comments: [facility] Dr. [facility] IN REMOVE MESH FROM ABD WALL FOR INFECTION Description: Debridement For Necrot Infect W/ Removal Of Mesh; Recorded: 06/21/2010; Comments: of ventral hernia Apr 2010 at [facility] APPENDECTOMY Description: Appendectomy; Recorded: 06/21/2010; Comments: 1958 [facility] APPENDECTOMY Description: Appendectomy; Proc Date: 05/28/1956; Comments: [facility] PART REMOVAL COLON W ANASTOMOSIS Description: Partial Colectomy; Recorded: 06/21/2010; Comments: for benign mass May 2002 Allergies Allergen Reactions Amoxicillin Hives Possibly late reaction. Social History Tobacco Use Smoking status: Former Types: Cigarettes Passive exposure: Past Smokeless tobacco: Never Substance Use Topics Alcohol use: Not Currently Wt Readings from Last 1 Encounters: 09/11/24 64.4 kg (141 lb 15.6 oz) Anesthesia Evaluation Pt has had prior anesthetic. Type: MAC and General. ROS/MED HX ENT/Pulmonary: - neg pulmonary ROS Neurologic: - neg neurologic ROS Cardiovascular: - neg cardiovascular ROS METS/Exercise Tolerance: Hematologic: - neg hematologic ROS Musculoskeletal: (+) arthritis, GI/Hepatic: - neg GI/hepatic ROS Renal/Genitourinary: - neg Renal ROS Endo: - neg endo ROS Psychiatric/Substance Use: - neg psychiatric ROS Infectious Disease: - neg infectious disease ROS Malignancy: - neg malignancy ROS Other: - neg other ROS Physical Exam Airway Mallampati: II TM distance: > 3 FB Neck ROM: full Mouth opening: > 3 cm Respiratory Devices and Support Dental (+) Minor Abnormalities - some fillings, tiny chips Cardiovascular cardiovascular exam normal Pulmonary pulmonary exam normal OUTSIDE LABS: CBC: Lab Results Component Value Date WBC 5.8 09/12/2024 WBC 7.8 11/09/2021 HGB 9.4 (L) 09/13/2024 HGB 9.1 (L) 09/12/2024 HCT 26.7 (L) 09/12/2024 HCT 50.2 11/09/2021 PLT 308 09/12/2024 PLT 524 (H) 11/09/2021 BMP: Lab Results Component Value Date NA 143 11/09/2021 NA 141 02/10/2019 POTASSIUM 4.5 11/09/2021 POTASSIUM 4.5 02/10/2019 CHLORIDE 109 (H) 11/09/2021 CHLORIDE 107 02/10/2019 CO2 24 11/09/2021 CO2 26 02/10/2019 BUN 21 11/09/2021 BUN 15 02/10/2019 CR 0.76 09/12/2024 CR 0.80 11/09/2021 GLC 84 11/09/2021 GLC 80 02/10/2019 COAGS: No results found for: PTT, INR, FIBR POC: No results found for: BGM, HCG, HCGS HEPATIC: Lab Results Component Value Date ALBUMIN 4.1 11/09/2021 PROTTOTAL 7.3 11/09/2021 ALT 20 11/09/2021 AST 21 11/09/2021 ALKPHOS 105 11/09/2021 BILITOTAL 1.3 (H) 11/09/2021 OTHER: Lab Results Component Value Date A1C 4.9 10/18/2022 CHARISMA 9.6 11/09/2021 TSH 2.37 11/09/2021 Anesthesia Plan ASA Status: 3 NPO Status: NPO Appropriate Anesthesia Type: General. - Airway: ETT Induction: Intravenous. Maintenance: Balanced. Techniques and Equipment: - Airway: Video-Laryngoscope - Lines/Monitors: 2nd IV Consents Anesthesia Plan(s) and associated risks, benefits, and realistic alternatives discussed. Questions answered and patient/business banking representative(s) expressed understanding. - Discussed: Risks, Benefits and Alternatives for the PROCEDURE were discussed - Discussed with: Patient, Spouse - Extended Intubation/Ventilatory Support Discussed: No. - Patient is DNR/DNI Status: No Use of blood products discussed: No . Postoperative Care Pain management: Multi-modal analgesia. PONV prophylaxis: Ondansetron (or other 5HT-3), Dexamethasone or Solumedrol Comments: Other Comments: GETTA with std monitors, ketamine IV Margaret Conrad MD Clinically Significant Risk Factors * Anesthesia Postprocedure Evaluation - Jose Max DO - 09/11/2024 3:47 PM CDT Patient: Luis Markham Procedure: Procedure(s): Lumbar 5 to Sacral 1 Decompression Anesthesia Type: No value filed. Note: Disposition: Admission Postop Pain Control: Uneventful Sign Out: Well controlled pain PONV: No Neuro/Psych: Uneventful Sign Out: Acceptable/Baseline neuro status Airway/Respiratory: Uneventful Sign Out: Acceptable/Baseline resp. status CV/Hemodynamics: Uneventful Sign Out: Acceptable CV status; No obvious hypovolemia; No obvious fluid overload Other NRE: NONE DID A NON-ROUTINE EVENT OCCUR? No Last vitals: Vitals Value Taken Time BP 123/69 09/11/24 1545 Temp 36.5 ??C (97.7 ??F) 09/11/24 1503 Pulse 77 09/11/24 1547 Resp 24 09/11/24 1547 SpO2 99 % 09/11/24 1547 Vitals shown include unfiled device data. Electronically Signed By: Jose Max DO September 11, 2024 3:47 PM * Anesthesia Procedure Notes - NyJessica valle APRN CRNA - 09/11/2024 1:20 PM CDT Associated Order(s): Airway Airway Patient location during procedure: OR Procedure Start/Stop Times: 09/11/2024 12:45 PM Staff - TEMPLATE FITTER: Jessica Reynolds APRN CRNA Performed By: TEMPLATE FITTER Consent for Airway Urgency: elective Indications and [...] Administered Medication Administration Time: 09/11/2024 12:45 PM documented in this encounter Miscellaneous Notes * Anesthesia Care Transfer Note - Luisana Lawson APRN CRNA - 09/11/2024 3:06 PM CDT Patient: Luis Markham Procedure: Procedure(s): Lumbar 5 to Sacral 1 Decompression Diagnosis: Cyst of lumbar facet joint [M71.38] Spinal stenosis of lumbar region with neurogenic claudication [M48.062] Diagnosis Additional Information: No value filed. Anesthesia Type: No value filed. Note: Oropharynx: spontaneously breathing and oropharynx clear of all foreign objects Level of Consciousness: awake and drowsy Oxygen Supplementation: face mask Level of Supplemental Oxygen (L/min / FiO2): 8 Independent Airway: airway patency satisfactory and stable Dentition: dentition unchanged Vital Signs Stable: post-procedure vital signs reviewed and stable Report to RN Given: handoff report given Patient transferred to: PACU Handoff Report: Identifed the Patient, Identified the Reponsible Provider, Reviewed the pertinent medical history, Discussed the surgical course, Reviewed Intra-OP anesthesia mangement and issues during anesthesia, Set expectations for post-procedure period and Allowed opportunity for questions andacknowledgement of understanding Vitals: Vitals Value Taken Time BP 121/62 Temp Pulse 79 09/11/24 1505 Resp 14 09/11/24 1505 SpO2 100 % 09/11/24 1505 Vitals shown include unfiled device data. Electronically Signed By: Luisana Lawson APRN CRNA September 11, 2024 3:06 PM documented in this encounter Plan of Treatment Upcoming Encounters Date Type Department Care Team (Late st Contact Info) Description 10/28/2024 12:50 PM CDT Office Visit [facility] Orthopedic [address] [phone] Jorge A Storey MD [address] [place] [address] 01/02/2025 10:45 AM CDT Office Visit [facility] Neurology [address] [address] Sydney Huff DO [address] [place] [address] documented as of this encounter Procedures Procedure Name Priority Date/Time Associated Diagnosis Comments ANE AIRWAY ETT PERFORMABLE Routine 09/11/2024 12:45 PM CDT documented in this encounter Results * ANE AIRWAY ETT PERFORMABLE (09/11/2024 12:45 PM CDT) Narrative Jessica Reynolds APRN CRNA - 09/11/2024 12:45 PM CDT Jessica Reynolds APRN CRNA 09/11/2024 1:22 PM Airway Patient location during procedure: OR Procedure Start/Stop Times: 09/11/2024 12:45 PM Staff - TEMPLATE FITTER: Nybo, Jessica L, SENIOR SUPPLIER QUALITY ENGINEER TEMPLATE FITTER Performed By: TEMPLATE FITTER Consent for Airway Urgency: elective Indications and [...] 09/11/2024 12:45 PM us Margaret Conrad MD IN ANESTHESIA Final Result documented in this encounter Visit Diagnoses Not on filedocumented in this encounter Administered Medications Inactive Administered Medications - up to 3 most recent administrations Medication Order MAR Action Action Date Dose Rate Site albumin human 5 % injection Intravenous, CONTINUOUS PRN, Starting on Flower 09/11/24 at 1337, Anesthesia Intra-op $New Bag 09/11/2024 1:37 PM CDT ceFAZolin Sodium (ANCEF) injection 2 g Routine, 2 g, Intravenous, PRE-OP/PRE-PROCEDURE, Starting on Flower 09/11/24 at 1002, For 1 dose, Give first dose within 1 hour PRIOR to incision. If patient weight is greater than or equal to 120 kg increase dose to 3 g., Indications: Perioperative Pharmacoprophylaxis, Pre-procedureIndications:Perioperati ve Pharmacoprophylaxis $Given 09/11/2024 12:41 PM CDT 2 g dexAMETHasone (DECADRON) injection Intravenous, PRN, Administer over 1 Minutes, Starting on Flower 09/11/24 at 1328, Anesthesia Intra-op $Given 09/11/2024 1:28 PM CDT 8 mg dexmedeTOMIDine (PRECEDEX) 4 mcg/mL bolus Intravenous, CONTINUOUS PRN, Starting on Flower 09/11/24 at 1241, Anesthesia Intra-op $New Bag 09/11/2024 12:41 PM CDT 8 mcg ePHEDrine injection Intravenous, PRN, Starting on Flower 09/11/24 at 1328, Anesthesia Intra-op $Given 09/11/2024 1:49 PM CDT 5 mg $Given 09/11/2024 1:43 PM CDT 5 mg $Given 09/11/2024 1:36 PM CDT 10 mg fentaNYL (PF) (SUBLIMAZE) injection Intravenous, PRN, Administer over 3-5 Minutes, Starting on Flower 09/11/24 at 1241, Anesthesia Intra-op $Given 09/11/2024 2:15 PM CDT 50 mcg $Given 09/11/2024 12:41 PM CDT 50 mcg HYDROmorphone (DILAUDID) injection Intravenous, PRN, Starting on Flower 09/11/24 at 1422, Anesthesia Intra-op $Given 09/11/2024 2:22 PM CDT 0.5 mg ketamine (KETALAR) injection Intravenous, PRN, Administer over 2-5 Minutes, Starting on Flower 09/11/24 at 1241, Anesthesia Intra-op $Given 09/11/2024 1:30 PM CDT 20 mg $Given 09/11/2024 12:41 PM CDT 30 mg lactated ringers infusion Intravenous, CONTINUOUS PRN, Anesthesia Intra-op, Starting on Flower 09/11/24 at 1234, Until Flower 09/11/24 at 1505 $New Bag 09/11/2024 1:36 PM CDT $New Bag 09/11/2024 12:34 PM CDT lidocaine 2% injection (MDV) Intravenous, PRN, Starting on Flower 09/11/24 at 1241, Anesthesia Intra-op $Given 09/11/2024 12:41 PM CDT 60 mg ondansetron (ZOFRAN) injection Intravenous, PRN, Administer over 2-5 Minutes, Starting on Flower 09/11/24 at 1410, Anesthesia Intra-op $Given 09/11/2024 2:10 PM CDT 4 mg phenylephrine (SHANON-SYNEPHRINE) injection Intravenous, CONTINUOUS PRN, Starting on Flower 09/11/24 at 1302, Anesthesia Intra-op $Bolus 09/11/2024 2:46 PM CDT 100 mcg $Bolus 09/11/2024 2:30 PM CDT 100 mcg $Bolus 09/11/2024 2:01 PM CDT 100 mcg phenylephrine 0.1 mg/mL infusion (mcg/kg/min) Intravenous, CONTINUOUS PRN, Starting on Flower 09/11/24 at 1403, Anesthesia Intra-op $New Bag 09/11/2024 2:03 PM CDT 0.3 mcg/kg/min 11.592 mL/hr propofol (DIPRIVAN) injection 10 mg/mL vial Intravenous, PRN, Starting on Flower 09/11/24 at 1241, Anesthesia Intra-op $Given 09/11/2024 12:41 PM CDT 130 mg rocuronium injection Intravenous, PRN, Starting on Flower 09/11/24 at 1241, Anesthesia Intra-op $Given 09/11/2024 12:41 PM CDT 50 mg sugammadex (BRIDION) injection Intravenous, PRN, Starting on Flower 09/11/24 at 1450, Anesthesia Intra-op $Given 09/11/2024 2:50 PM CDT 100 mg tranexamic acid (CYKLOKAPRON) 1,930 mg in sodium chloride 0.9 % 50 mL bolus 1,930 mg (rounded from 1,932 mg = 30 mg/kg 64.4 kg), Intravenous, ONCE, On Flower 09/11/24 at 1200, For 1 dose, Prior to incision. Each 1 gram to be infused over 10 minutes., Pre-procedure $New Bag 09/11/2024 1:00 PM CDT 1,932 mg tranexamic acid (CYKLOKAPRON) 2 g in sodium chloride 0.9 % 100 mL infusion 10 mg/kg/hr 64.4 kg (32.2 mL/hr), Intravenous, CONTINUOUS, Starting on Flower 09/11/24 at 1300, 10 mg/kg/hr = 32.2 ml/hr Throughout the case., Intra-procedure $New Bag 09/11/2024 1:24 PM CDT 10 mg/kg/hr 32.2 mL/hr documented in this encounter Care Teams Community Health Nurse Supervisor Relationship Specialty Start Date End Date Nicolette Parikh MD [facility] [place] [address] PCP - General Internal Medicine 10/18/22 Sydney Huff DO [address] [place] [address] Neurology 08/05/21 Leidy Henderson AuD [address] [place] [address] Blender/Braze Applicator Audiology 11/14/21 Sydney Huff DO [address] [place] [address] Assigned Neuroscience Provider 01/21/22 Rd Chang MD [address] [place] [address] Assigned PCP 04/19/24 Jorge A Storey MD [address] [place] [address] Assigned Musculoskeletal Provider 08/17/24 documented as of this encounter
--- OUTSIDE RECORDS SUMMARY | 2024-10-03 12:57 | XMS_ITS | Encounter Summary ---
Author Organization [place] Address [address] [place] [address] Care Team Providers Care Automation Mechanic Name Role Phone Sydney Huff Unavailable [phone] Leidy Henderson Unavailable [phone] RefugioSydney DO Unavailable [phone] Nicolette Parikh MD Primary Care Provider Rd Chang MD Unavailable [phone] Jorge A Storey MD Unavailable + [phone] Reason for Visit * Reason Onset Date Comments Previsit 09/03/2024 Encounter Details Date Type Department Care Team (Late st Contact Info) Description 09/03/2024 PRE VISIT [facility] Preoperative Assessment [facility] [address] 5th [place] [address] Melody Wood PA-C [address] [place] [id number] Previsit Social History Tobacco Use Types Packs/Day Years [...] encounter Miscellaneous Notes * Telephone Encounter - Una Nicole - 08/28/2024 3:05 PM CDT FUTURE VISIT INFORMATION SURGERY INFORMATION: Date: 09/11/24 Location: [facility] Surgeon: Jorge A Storey MD Anesthesia Type: General Procedure: Lumbar 5 to Sacral 1 Decompression Consult: 08/26/24 RECORDS REQUESTED FROM: Primary Care Provider: Nicolette Parikh MD - [facility] Pertinent Medical History: Thrombocythemia Most recent EKG+ Tracin08/04/24 - [place] Update August 28, 2024 3:09 PM MMT : Faxed records request to [facility] documented in this encounter Plan of Treatment Upcoming Encounters Date Type Department Care Team (Late st Contact Info) Description 10/28/2024 12:50 PM CDT Office Visit [facility] Orthopedic [address] 4th [place] [phone] Jorge A Storey MD [address] [place] [address] 01/02/2025 10:45 AM CDT Office Visit [facility] Neurology Clinic [address] [phone] Sydney Huff DO [address] [place] [address] documented as of this encounter Visit Diagnoses Not on filedocumented in this encounter Care Teams Automation Mechanic Relationship Specialty Start Date End Date Nicolette Parikh MD [facility] - [address] [address] PCP - General Internal Medicine 10/18/22 Sydney Huff DO [address] [place] [address] Neurology 08/05/21 Leidy Henderson AuD [address] [place] [address] Line Haul Driver Audiology 11/14/21 Sydney Huff DO [address] [place] [address] Assigned Neuroscience Provider 01/21/22 Rd Chang MD [address] [place] [address] Assigned PCP 04/19/24 Jorge A Storey MD [address] [place] [address] Assigned Musculoskeletal Provider 08/17/24 documented as of this encounter
--- OUTSIDE RECORDS SUMMARY | 2024-10-03 12:57 | XMS_ITS | Encounter Summary ---
Author Organization [place] Address [address] [place] [address] Care Team Providers Care Sleeve Turner Name Role Phone Tiff Lamar MD Unavailable [phone] Madalyn Sims NP Unavailable Tiff Lamar MD Primary Care Provider + [phone] Sydney Huff DO Unavailable [phone] Leidy Henderson Unavailable [phone] Sydney Huff DO Unavailable [phone] Sydney Huff DO Unavailable [phone] Nicolette Parikh MD Primary Care Provider Barry Grubbs CNP Unavailable + [phone] Rd Chang MD Unavailable [phone] Jorge A Storey MD Unavailable [phone] Encounter Details Date Type Department Care Team (Late st Contact Info) Description 02/10/2019 Records - [facility] CONVERSION Scan, Non-Provider Social History Tobacco Use Types Packs/Day Years Used Date Smoking Tobacco: Never Assessed PHQ-2 Answer Date Recorded PHQ-2 Score 0 02/10/2019 Sex and Gender Information Value Date Recorded Sex Assigned at Not on file Legal Sex Male 1:28 PM CDT Gender Identity Not on file Sexual Orientation Not on file documented as of this encounter Plan of Treatment Upcoming Encounters Date Type Department Care Team (Late st Contact Info) Description 10/28/2024 12:50 PM CDT Office Visit [facility] Orthopedic [facility] [place] [address] [facility] 4th [place] [phone] Jorge A Storey MD [address] [place] [address] 01/02/2025 10:45 AM CDT Office Visit [facility] Neurology [address] [phone] Sydney Huff DO [address] [place] [address] documented as of this encounter Visit Diagnoses Not on filedocumented in this encounter Care Teams Sleeve Turner Relationship Specialty Start Date End Date Tiff Lamar MD [address] [place] [address] PCP - General Family Practice 10/16/14 03/27/22 Nicolette Parikh MD [address] [address] PCP - General Internal Medicine 10/18/22 Tiff Lamar MD Assigned PCP 11/10/20 09/29/22 Madalyn Sims NP [address] [place] [address] Assigned Surgical Provider 12/10/20 01/01/21 Sydney Huff DO [address] [place] [address] Neurology 08/05/21 Leidy Henderson AuD [facility] [place] [address] Research And Evaluation Analyst Audiology 11/14/21 Sydney Huff DO [address] [place] [address] Assigned Neuroscience Provider 01/21/22 Sydney Huff DO [address] [place] [address] Assigned Neuroscience Provider 11/12/21 01/20/22 Barry Grubbs CNP [address] [facility] [address] [place] [address] Assigned PCP 09/30/22 04/18/24 Rd Chang MD [address] [place] [address] Assigned PCP 04/19/24 Jorge A Storey MD [address] [place] [address] Assigned Musculoskeletal Provider 08/17/24 documented as of this encounter
[2024-10-03 12:58] VITALS: BP 102/62; PULSE 66; RESP 32; TEMP 36.6; O2SAT 97; BMI 20.5
--- OUTSIDE RECORDS SUMMARY | 2024-10-03 12:58 | XMS_ITS | Encounter Summary ---
Author Organization [place] Address [address] [place] [address] Care Team Providers Care Student Education Specialist Name Role Phone Sydney Huff DO Unavailable [phone] Leidy Henderson AuD Unavailable [phone] RefugioSydney DO Unavailable [phone] Nicolette Parikh MD Primary Care Provider Rd Chang MD Unavailable [phone] Jorge A Storey MD Unavailable + [phone] Encounter Details Date Type Department Care Team (Late st Contact Info) Description 09/01/2024 Documentation Only [facility] [address] [place] [address] Nicolette Parikh MD [facility] [address] [place] [address] Social History Tobacco Use Types Packs/Day Years [...] Progress Notes * Kendall Yusuf - 09/01/2024 5:36 PM CDT Luis Markham has an upcoming lab appointment: Future Appointments Date Time Provider Department Center 09/03/2024 12:15 PM eMlody Wood PA-C [facility] 09/04/2024 11:45 AM [facility] 10/28/2024 12:50 PM Jorge A Storey MD [facility] 01/02/2025 10:45 AM Sydney Huff DO [facility] Patient is scheduled for the [...] Description 10/28/2024 12:50 PM CDT Office Visit [facility] [address] [phone] Jorge A Storey MD [address] [place] [address] 01/02/2025 10:45 AM CDT Office Visit [facility] [address] [address] Sydney Huff DO [address] [place] [address] 732955 documented as of this encounter Visit Diagnoses Not on filedocumented in this encounter Care Teams Student Education Specialist Relationship Specialty Start Date End Date Nicolette Parikh MD [address] [address] PCP - General Internal Medicine 10/18/22 Sydney Huff DO [address] [place] [address] Neurology 08/05/21 Leidy Henderson AuD [address] [place] [address] Sole Tacker Audiology 11/14/21 Sydney Huff DO [address] [place] [address] Assigned Neuroscience Provider 01/21/22 Rd Chang MD [address] [place] [address] [place] [address] Assigned PCP 04/19/24 Jorge A Storey MD [address] [place] [address] Assigned Musculoskeletal Provider 08/17/24 documented as of this encounter
--- OUTSIDE RECORDS SUMMARY | 2024-10-03 12:58 | XMS_ITS | Clinical Summary ---
Author Organization [employer] [facility] [employer] Address [address] [place] [address] Care Team Providers Care Intermediate Card Tender Name Role Phone Tiff Lamar MD Primary Care Provider + [phone] Allergies Active Allergy Reactions Criticality Noted Date Comments Amoxicillin Hives Medium 08/22/2017 Possibly late reaction. Medications ibuprofen (ADVIL; MOTRIN) 600 mg tablet Take 1 tablet by mouth every 6 hours if needed for Pain or Headache. Maximum of 3200 mg in 24 hours. 30 tablet 0 03/03/2014 Active meclizine (ANTIVERT) 25 mg tablet Take 25 mg by mouth. 07/12/2021 Active Encounters Date Type Department Care Team Description 07/10/2024 Lab Requisition [facility] [phone] Broderick Gomes MD from Last 3 Months Immunizations Immunization Administration Dates Next Due Tdap 03/03/2014 Family History Relation Name Status Comments Mother Social History Tobacco Use Types Packs/Day Years Used Date Smoking Tobacco: Former Smokeless Tobacco: Never Sex and Gender Information Value Date Recorded Sex Assigned at Not on file Legal Sex Male 5:17 AM NURSE GENERAL DUTY Gender Identity Not on file Sexual Orientation Not on file Obstetrics History Last Filed Vital Signs Vital Sign Reading Time Taken Comments Blood Pressure 105/68 07/20/2021 1:41 PM NURSE GENERAL DUTY Pulse 72 07/20/2021 1:41 PM NURSE GENERAL DUTY Temperature 36.6 C (97.8 F) 07/20/2021 1:41 PM NURSE GENERAL DUTY Respiratory Rate 18 07/20/2021 1:41 PM NURSE GENERAL DUTY Oxygen Saturation 95% 07/20/2021 1:41 PM NURSE GENERAL DUTY Inhaled Oxygen Concentration - - Weight 77.6 kg (171 lb) 07/20/2021 1:41 PM NURSE GENERAL DUTY Height 172.7 cm (5' 8) 07/20/2021 1:41 PM NURSE GENERAL DUTY Body Mass Index 26 07/20/2021 1:41 PM NURSE GENERAL DUTY Plan of Treatment Health Maintenance Due Date Last Done Comments Depression screening for age 12+ 1950 BMI (ht and wt on same day) for age 18+ 1956 Pneumococcal series for age 50+ (1 of 1 - PCV) 1988 Zoster (shingles) series for age 50+ (1 of 2) 1988 RSV vaccine for adults or pr egnancy (1 - 1-dose 75+ series) 2013 COVID-19 vaccine series ( season) 2024 04/01/2021, 08/31/2020, 08/10/2020 Tetanus booster 03/03/2024 03/03/2014 Influenza Vaccine (Season Ended) 2025 Tdap Completed 03/03/2014 Procedures Procedure Name Priority Date/Time Associated Diagnosis Comments PERIPHERAL BLD MORPHOLOGY Routine 07/09/2024 4:04 PM NURSE GENERAL DUTY MYELOID NGS (LAB ONLY) Routine 07/09/2024 4:04 PM NURSE GENERAL DUTY LAB TRACKING EVENT Routine 07/09/2024 12 :00 PM NURSE GENERAL DUTY from Last 3 Months Results * MYELOID NGS (LAB ONLY) (07/09/2024 4:04 PM NURSE GENERAL DUTY) Blood (Peripheral Blood) 07/09/2024 4:04 PM NURSE GENERAL DUTY 07/11/2024 9:21 AM NURSE GENERAL DUTY us Broderick Gomes MD PATHOLOGY/CYTOLOGY Final Resul t [facility] [address] [place] [address], * PERIPHERAL BLD MORPHOLOGY (07/09/2024 4:04 PM NURSE GENERAL DUTY) Case Report Special Hematology Report Case: [id number] Authorizing Provider: Broderick Gomes MD Collected: 07/09/2024 1604 Ordering Location: [facility] Received: 07/10/2024 5279 Pathologist: Alvni Schafer MD Specimen: Peripheral Blood 07/21/2024 11:23 AM [facility] Final Diagnosis PERIPHERAL BLOOD: 1. JAK2-positive myeloproliferative neoplasm (MPN), with: a. Moderate thrombocytosis (923K) b. Mild normocytic anemia c. Minimal absolute neutrophilia and absolute monocytosis d. [place] Myeloid myeloproliferative neoplasm panel (CALR, JAK2, MPL): Positive for a JAK2 mutation (VAF 39%); see attached report 07/21/2024 11:23 AM [facility] at 1123 NURSE GENERAL DUTY Preliminary result electronically signed by Sameer Elise MD on 07/11/2024 at 1008 NURSE GENERAL DUTY Comment The presence of a JAK2 V617F mutation establishes clonal hematopoiesis in this specimen and confirms the morphologic impression of involvement by a myeloproliferative neoplasm (MPN). The peripheral blood features would raise the possibility for essential thrombocythemia (ET); however, a bone marrow biopsy should be considered for definitive subclassification, evaluating for marrow fibrosis, and to establish a pre-treatment baseline for future comparison. 07/21/2024 11:23 AM [facility] Clinical Information The patient is an 83-year-old male. Per CBC scan: New thrombocytosis with no previous for lab comparison. He is had a persistent thrombocytosis since 2021 that has increased in magnitude. 07/21/2024 11:23 AM [facility] CBC and Differential HEMATOLOGY PARAMETERS Tested at: [facility] RESULTS EXPECTED VALUES WBC: 10.6 4.5-92y3377/cumm RBC: 4.57 4.30-5.90 mil/cumm HGB: 13.4 13.5-17.5 gm/di DECREASED HCT: 41.1 37-53% MCV: 89.9 80-100 fl NORMOCYTIC MCH: 29.3 26-34 pg MCHC: 32.6 32-36 gm/dl NORMOCHROMIC RDW: 15.5 11.5-15.5% PLT: 923 140-057u2160/uL ELEVATED Differential Absolute (%) Expected (%) (x10*9/L) (x10*9/L) Neutrophils: 7.02 (66.2) 1.7-7.0 (42-72%) ELEVATED Lymphocytes: 2.05 (19.3) 0.9-2.9 (20-44%) Monocytes: 0.95 (9) <0.9 (0-11%) ELEVATED Eosinophils: 0.44 (4.2) <0.5 (0-2%) Basophils: 0.09 (.8) <0.3 (<3.0%) Imm Grans: 0.05 (.5) <0.3 (0-3%) (Metas, Myelos,Pros) 07/21/2024 11:23 AM NURSE GENERAL DUTY [facility] Microscopic Description The final diagnosis is based on microscopic examination of an appropriately stained blood smear. 07/21/2024 11:23 AM NURSE GENERAL DUTY [facility] Additional Information Interpreted at [facility] - [address] [place] [address] 07/21/2024 11:23 AM NURSE GENERAL DUTY [facility] Blood (Peripheral Blood) 07/09/2024 4:04 PM NURSE GENERAL DUTY 07/10/2024 3:57 PM NURSE GENERAL DUTY Broderick Gomes MD HEMATOLOGY Final Result Performing Organization Address [facility] Co de Phone Number [facility] [address] [place] [address], * LAB TRACKING EVENT (07/09/2024 12:00 PM NURSE GENERAL DUTY) Other (Other) Client Collect / Unknown 07/09/2024 12:00 PM NURSE GENERAL DUTY 07/10/2024 1:55 PM NURSE GENERAL DUTY Broderick Gomes MD LAB BILL ONLY Final Result Performing Organization Address [facility] Co de Phone Number [facility] [address] [place] [address], from Last 3 Months Insurance [id number] [address] [address] UC[employer] MEDICARE ADVANTAGE MR UC[employer] MEDICARE ADVANTAGE MR Care Teams Intermediate Card Tender Relationship Specialty Start Date End Date Tiff Lamar MD PCP - General Family Practice 07/20/21
--- OUTSIDE RECORDS SUMMARY | 2024-10-03 12:58 | XMS_ITS | Encounter Summary ---
Author Organization [place] Address [address] [place] [address] Care Team Providers Care Director Of Quality Improvement Name Role Phone Sydney Huff Unavailable [phone] Leidy Henderson AuD Unavailable [phone] RefugioSydney Unavailable [phone] Nicolette Parikh MD Primary Care Provider Rd Chang MD Unavailable [phone] Jorge A Storey MD Unavailable [phone] Encounter Details Date Type Department Care Team (Late st Contact Info) Description 08/26/2024 9:40 AM CDT Virtual Visit [facility] [address] [place] [address] Jorge A Storey MD [address] [place] [address] [id number] Cyst of lumbar facet joint (Primary Dx); Spinal stenosis of lumbar region with neurogenic claudication Social History Tobacco Use Types Packs/Day Years [...] as of this encounter Progress Notes * Jorge A Storey MD - 08/26/2024 9:40 AM CDT Arjun says that he spoke to his oncology team. He was told he does not need any chemo. His CT scan does show any ossification of his cyst. We discussed that the most thorough way of removing the cyst would be a fusion, but given his age and medical history I recommended against a fusion. We discussed he might need a fusion at a later date if this was not successful and I may not get all the cyst out. Also discussed increased risk of spinal fluid leak with the cyst being there and thesequelae of that. Risks of this surgery include risk of infection, risk of dural tear resulting in CSF leak which might result in headaches, or possible need for lumbar drain, or possible revision surgery in the setting of a persistent leak. Risk of seroma or hematoma requiring revision surgery. Possible nerve root injury resulting in numbness weakness or paralysis into the leg. Possible radiculitis which could result in similar symptoms or could result in significant neurogenic type pain into the leg. Risk of incomplete decompression which might require revision surgery in the future. Risk of pars fracture orpostoperative instability requiring conversion to a fusion in the future. Risk of adjacent segment p roblems requiring surgery in the future. Risk of incomplete relief of symptoms possibly requiring revision surgery in the future. There is a risk of blood clots in the legs or the lungs. Furthermore,although rare, there are risks of major vessel or major organ injury from the surgery, and risks ofthe anesthetic including stroke heart attack and . No further conservative care is indicated, and the surgery is medically necessary for the followingreasons: There is no indication for further physical therapy in this case. Further physical therapy would delay necessary medical treatment and prolong the patient's suffering with no benefit and the delay would increase the risk of neurologic decline and/or symptom worsening unnecessarily, with no benefit to the patient and possible harm. The patient has already trialed oral medications as listed in the medication history, and has trialed activity modification such as decreasing their bending and twisting, and decreasing their walkingdistance. In spite of this, and in spite of the conservative therapies documented above, the patient has significant functional disability in their activities of daily living such as prolonged sitting and standing, prolonged walking, and daily chores, each of which are very difficult or painful because of this spinal problem. Therefore the proposed surgery is medically necessary and the patient has failed conservative care. There are no untreated, underlying mental health conditions (including but not limited to psychological conditions or drug or alcohol abuse) that will preclude an appropriate recovery from this surgery or that are contraindications to proceeding with surgery. Jorge A Storey MD No bill for this phone visit * Aguilar Huber ATC - 08/26/2024 9:40 AM CDT Virtual Visit Details Type of service: Telephone Visit Phone call duration: 10 minutes Originating Location (pt. Location): Home Distant Location (provider location): On-site Telephone visit completed due to provider preference. documented in this encounter Plan of Treatment Upcoming Encounters Date Type Department Care Team (Late st Contact Info) Description 10/28/2024 12:50 PM CDT Office Visit [facility] [address] [place] [phone] Jorge A Storey MD [address] [place] [address] 01/02/2025 10:45 AM CDT Office Visit [facility] [address] [phone] Sydney Huff DO [address] [place] [address] 089135 documented as of this encounter Visit Diagnoses Diagnosis Cyst of lumbar facet joint- Primary Spinal stenosis of lumbar region with neurogenic claudication Spinal stenosis, lumbar region, with neurogenic claudication documented in this encounter Care Teams Director Of Quality Improvement Relationship Specialty Start Date End Date Nicolette Parikh MD [facility] [address] [place] [address] PCP - General Internal Medicine 10/18/22 Sydney Huff DO [address] [place] [address] Neurology 08/05/21 Leidy Henderson AuD [address] [place] [address] Cylinder Tester Audiology 11/14/21 Sydney Huff DO [address] [place] [address] Assigned Neuroscience Provider 01/21/22 Rd Chang MD [address] [place] [address] Assigned PCP 04/19/24 Jorge A Storey MD [address] [place] [address] Assigned Musculoskeletal Provider 08/17/24 documented as of this encounter
--- OUTSIDE RECORDS SUMMARY | 2024-10-03 12:58 | XMS_ITS | Encounter Summary ---
Author Organization [place] Address [address] [place] [address] Care Team Providers Care Associate Embalmer/Funeral Director Name Role Phone Sydney Huff DO Unavailable [phone] Leidy Henderson Unavailable [phone] Sydney Huff DO Unavailable [phone] Nicolette Parikh MD Primary Care Provider Rd Chang MD Unavailable [phone] Jorge A Storey MD Unavailable + [phone] Reason for Visit * Reason Onset Date Comments Schedule Surgery 08/27/2024 Dr Storey Encounter Details Date Type Department Care Team (Late st Contact Info) Description 08/27/2024 Telephone [facility] [address] [address] Jorge A Storey MD [address] [place] [address] Schedule Surgery (Dr Storey ) Social History Tobacco Use Types Packs/Day Years [...] encounter Miscellaneous Notes * Telephone Encounter - Pearl Alvarado MA - 08/27/2024 2:43 PM CDT Patient is scheduled for surgery with Dr. Storey Spoke with: Patient's , Leonardo Date of Surgery: 09/11/24 Location: [place] Informed patient they will need an adult home delivery driver: Yes Post op: 6 weeks with , 10/28 @ 12:50 Pre op with Provider: Complete H&P: Scheduled with PAC 09/03/24 Additional imaging/appointments: N/A Surgery packet: Mailed to patient Additional comments: N/A Pearl Alvarado MA on 08/27/2024 at 2:43 PM documented in this encounter Plan of Treatment Upcoming Encounters Date Type Department Care Team (Late st Contact Info) Description 10/28/2024 12:50 PM CDT Office Visit [facility] [address] [place] [phone] Jorge A Storey MD [address] [place] [address] 01/02/2025 10:45 AM CDT Office Visit [facility] [address] [phone] Sydney Huff DO [address] [place] [address] documented as of this encounter Visit Diagnoses Not on filedocumented in this encounter Care Teams Associate Embalmer/Funeral Director Relationship Specialty Start Date End Date Nicolette Parikh MD [address] [address] PCP - General Internal Medicine 10/18/22 Sydney Huff DO [address] [place] [address] Neurology 08/05/21 Leidy Henderson AuD [address] [place] [address] Pantograph Watcher Audiology 11/14/21 Sydney Huff DO [address] [place] [address] Assigned Neuroscience Provider 01/21/22 Rd Chang MD [address] [place] [address] [place] [address] Assigned PCP 04/19/24 Jorge A Storey MD [address] [place] [address] Assigned Musculoskeletal Provider 08/17/24 documented as of this encounter
--- OUTSIDE RECORDS SUMMARY | 2024-10-03 12:58 | XMS_ITS | Encounter Summary ---
Author Organization [place] Address [address] [place] [address] Care Team Providers Care Land Management Supervisor Name Role Phone Sydney Huff DO Unavailable [phone] Leidy Henderson AuD Unavailable [phone] Sydney Huff DO Unavailable [phone] Nicolette Parikh MD Primary Care Provider Rd Chang MD Unavailable [phone] Jorge A Storey MD Unavailable + [phone] Reason for Visit * Reason Onset Date Comments Call Back 09/01/2024 Pt spouse callin g with several questions Encounter Details Date Type Department Care Team (Late st Contact Info) Description 09/01/2024 Telephone [facility] [address] [address] Jorge A Storey MD [address] [place] [address] Call Back (Pt spouse calling with several questions) Social History Tobacco Use Types Packs/Day Years [...] encounter Miscellaneous Notes * Telephone Encounter - Yvonne Trejo RN - 09/01/2024 9:34 AM CDT RN called patient's to discuss care and arrange appointments. Patient will be seeing virtual PAC this Sunday ahead of surgery on September 11. RN rescheduled patient's lab appointment for the following day after discussing with Melody Wood. We discussed some other logistics regarding surgery like recovery, transportation, where to go and follow up appointments. Discussed virtual appointment and set patient up for texting notifications. Call was disconnected at 16 minutes, unable to reach . Yvonne Trejo RN * Telephone Encounter - Jolene Noble - 09/01/2024 8:36 AM CDT Other: Patient spouse is calling in with several questions. Spouse would like to know if they can have lab work scheduled for 09/[address] [facility] instead of [facility], She also would like to know if patient should stop taking his vitamins before surgery - D3, and an over the counter sleep aid relaxium. Additionally, patient's PCP stated patient should take morphine the morning of surgery and spouse would like to know if that is accurate. Please call when able. Could we send this information to you in [facility] or would you prefer to receive a phone call?: Patient would prefer a phone call Okay to leave a detailed message?: Yes at Cell number on file: Telephone Information: documented in this encounter Plan of Treatment Upcoming Encounters Date Type Department Care Team (Late st Contact Info) Description 10/28/2024 12:50 PM CDT Office Visit [facility] [address] [place] [address] Jorge A Storey MD [address] [place] [address] 01/02/2025 10:45 AM CDT Office Visit [facility] [address] [place] [phone] Sydney Huff DO [address] [place] [address] documented as of this encounter Visit Diagnoses Not on filedocumented in this encounter Care Teams Land Management Supervisor Relationship Specialty Start Date End Date Nicolette Parikh MD [address] [address] PCP - General Internal Medicine 10/18/22 Sydney Huff DO [address] [place] [address] Neurology 08/05/21 Leidy Henderson AuD [address] [place] [address] Media Technician Audiology 11/14/21 Sydney Huff DO [address] [place] [address] Assigned Neuroscience Provider 01/21/22 Rd Chang MD [address] [place] [address] Assigned PCP 04/19/24 Jorge A Storey MD [address] [place] [address] Assigned Musculoskeletal Provider 08/17/24 documented as of this encounter
--- NOTE | 2024-10-03 13:49 | CRLHL7_ITS ---
For Patients: As a result of the Cures Act, medical imaging exams and procedure reports are released immediately into your electronic medical record. You may view this report before your referring provider. If you have questions, please contact your health care provider. INDICATION: Short of breath. TECHNIQUE: Chest 2 views. COMPARISON: CT chest 08/04/2024. FINDINGS: No pneumothorax or pleural effusion. Right upper lobe bronchiectasis similar. Bilateral scarring and/or atelectasis, as before. Lungs otherwise clear. Cardiac and mediastinal contours are within normal limits. Upper abdomen and osseous structures as imaged show no acute abnormality. Chronic compression fracture of the T7 vertebra is unchanged. IMPRESSION: No evidence of acute cardiopulmonary disease. Dictated by Mark Yi MD @ 10/03/2024 2:31:25 PM (Electronically Signed)
[2024-10-03 13:51] LABS: PCR FLU A Negative PCR FLU A (Negative); PCR FLU B Negative PCR FLU B (Negative); PCR RSV Negative PCR RSV (Negative); SARS PCR* Negative SARS-CoV-2 (Negative)
--- OUTSIDE RECORDS SUMMARY | 2024-10-03 14:01 | XMS_ITS | Encounter Summary ---
Author Organization [place] Address [address] [place] [address] Care Team Providers Care Java Golden Gate Developer Name Role Phone Sydney Huff DO Unavailable [phone] Leidy Henderson AuD Unavailable [phone] RefugioSydney DO Unavailable [phone] Nicolette Parikh MD Primary Care Provider Rd Chang MD Unavailable [phone] Jorge A Storey MD Unavailable [phone] Encounter Details Date Type Department Care Team [...] Description 10/28/2024 12:50 PM CDT Office Visit [facility] [address] 4[address] [place] [address] Jorge A Storey MD [address] [place] [address] 01/02/2025 10:45 AM CDT Office Visit [facility] [address] [place] [phone] Sydney Huff DO [address] [place] [address] documented as of this encounter Visit Diagnoses Not on filedocumented in this encounter Care Teams Java Golden Gate Developer Relationship Specialty Start Date End Date Nicolette Parikh MD [address] [address] PCP - General Internal Medicine 10/18/22 Sydney Huff DO [address] [place] [address] Neurology 08/05/21 Leidy Henderson AuD [address] [place] [address] Email Engineer Audiology 11/14/21 Sydney Huff DO [address] [place] [address] Assigned Neuroscience Provider 01/21/22 Rd Chang MD [address] [place] [address] Assigned PCP 04/19/24 Jorge A Storey MD [address] [place] [address] Assigned Musculoskeletal Provider 08/17/24 documented as of this encounter
--- OUTSIDE RECORDS SUMMARY | 2024-10-03 14:01 | XMS_ITS | Encounter Summary ---
Author Organization [place] Address [address] [place] [address] Care Team Providers Care Linseed Oil Refiner Name Role Phone Sydney Huff DO Unavailable [phone] Leidy Henderson Unavailable [phone] Sydney Huff Unavailable [phone] Nicolette Parikh MD Primary Care Provider [phone] Rd Chang MD Unavailable [phone] Jorge A Storey MD Unavailable + [phone] Reason for Visit * Reason Comments Pre-Op Exam Encounter Details Date Type Department Care Team (Latest Contact Info) Description 09/03/2024 12:15 PM CDT Virtual Visit [facility] [address] 5th [place] [address] Melody Wood, PA-C [address] [place] [address] [phone] NO SHOW (Primary Dx) Anesthesia Record Procedure Summary Procedure Name Responsible Anesthesiologist Anesthesia Start Time Anesthesia Stop Time Lumbar 5 to Sacral 1 Decompression (Spine) Margaret Rao MD 09/11/24 1228 09/11/24 1505 Events Date Time Event Comment 09/11/2024 0708 1037 REGISTERED NURSE SUPERVISOR Ready for Procedure 1228 An Start Anesthesia [...] 1303 MD Present 1323 AN INCISION 1436 REGISTERED NURSE SUPERVISOR Handoff I, Luisana Lawson APRN CRNA, attest that I have reviewed all the significant information with the provider relieving me and assuming care of this patient. All questions were answered, anesthesia and OR team are aware of change of REGISTERED NURSE SUPERVISOR. 1457 AN Extubation All extubation criteria met [...] Grade View: 1; Adjucts: Stylet; Placement Person: REGISTERED NURSE SUPERVISOR; Attempts: 1 09/11/24 1245 by Jessica Reynolds APRN CRNA 09/11/24 1457 by Luisana Lawson APRN CRNA Drain 09/11/24; 1414; Closed/Suction; Inferior, Left, Medial; Back; Accordion; 10 Bulgarian 09/11/24 1414 by Koko Dinh RN 09/14/24 [...] would you like to obtain your AVS? [email or web address] Subjective Arjun is a 83 year old, [...] Description 10/28/2024 12:50 PM CDT Office Visit [facility] [address] [place] [phone] Jorge A Storey MD [address] [place] [address] 312605 01/02/2025 10:45 AM CDT Office Visit [facility] [address] [address] Sydney Huff DO [address] [place] [address] [phone] documented as of this encounter Visit Diagnoses Diagnosis NO SHOW- Primary documented in this encounter Care Teams Linseed Oil Refiner Relationship Specialty Start Date End Date Nicolette Parikh MD [address] [address] PCP - General Internal Medicine 10/18/22 Sydney Huff DO [address] [place] [address] Neurology 08/05/21 Leidy Henderson AuD [address] [place] [address] Electrical Automation Engineer Audiology 11/14/21 Sydney Huff DO [address] [place] [address] 14539 Assigned Neuroscience Provider 01/21/22 Rd Chang MD [address] [place] [address] Assigned PCP 04/19/24 Jorge A Storey MD [address] [place] [address] 40195 Assigned Musculoskeletal Provider 08/17/24 documented as of this encounter
--- OUTSIDE RECORDS SUMMARY | 2024-10-03 14:01 | XMS_ITS | Encounter Summary ---
Author Organization [place] Address [address] [place] [address] Care Team Providers Care Accounting Professor Name Role Phone Sydney Huff Unavailable [phone] Leidy Henderson Unavailable [phone] RefugioSydney Unavailable [phone] Nicolette Parikh MD Primary Care Provider Rd Chang MD Unavailable [phone] Jorge A Storey MD Unavailable + [phone] Reason for Visit * Reason Onset Date Comments Patient Request 09/02/2024 Lab orders Clinic Care Coordination - Follow-up 09/02/2024 Encounter Details Date Type Department Care Team (Late st Contact Info) Description 09/02/2024 Telephone [facility] [address] [place] [address] Jorge A Storey MD [address] [place] [address] [phone] Patient Request (Lab orders); Clinic Care Coordination [...] H&P was done by Primary provider at [facility] but they can't remember what date until [...] CDT Other: Patient is at the [facility] lab right now for blood draw. They do not have orders. Can theses orders be placed by Dr. Storey, so patient can be seen today? Please call them back as soon as possible. Could we send this information to you in Voxeotionesta or would you prefer to receive a [...] [place] - 09/03/2024 8:[address] [facility] Labs calling again- to confirm labs [...] orders for a blood draw on at [facility] Date needed: 09/02 Provider name: Dr. Storey Could we send this information to you in Voxeotionesta or would you prefer to receive a phone call?: Patient would prefer a phone call Okay to leave a detailed message?: Yes at Cell number on file: Telephone Information: documented in this encounter Plan of Treatment Upcoming Encounters Date Type Department Care Team (Late st Contact Info) Description 10/28/2024 12:50 PM CDT Office Visit [facility] [address] [phone] Jorge A Storey MD [address] [place] [address] [phone] 01/02/2025 10:45 AM CDT Office Visit [facility] [address] [place] [phone] Sydney Huff DO [address] [place] [address] documented as of this encounter Visit Diagnoses Not on filedocumented in this encounter Care Teams Accounting Professor Relationship Specialty Start Date End Date Nicolette Parikh MD [address] [address] PCP - General Internal Medicine 10/18/22 Sydney Huff DO [address] [place] [address] Neurology 08/05/21 Leidy Henderson AuD [address] [place] [address] Stapler Coil Unit Audiology 11/14/21 Sydney Huff DO [address] [place] [address] 27039 Assigned Neuroscience Provider 01/21/22 Rd Chang MD [address] [place] [address] Assigned PCP 04/19/24 Jorge A Storey MD [address] [place] [address] Assigned Musculoskeletal Provider 08/17/24 documented as of this encounter
--- OUTSIDE RECORDS SUMMARY | 2024-10-03 14:01 | XMS_ITS | Encounter Summary ---
Author Organization [place] Address [facility] [place] [address] Care Team Providers Care Golf Club Head Inspector Name Role Phone RefugioSydney Unavailable [phone] Leidy Henderson Unavailable [phone] Sydney Huff DO Unavailable [phone] Nicolette Parikh MD Primary Care Provider Rd Chang MD Unavailable [phone] Jorge A Storey MD Unavailable + [phone] Reason for Visit * Auth/Cert Specialty Diagnoses / Procedures Referred By Arron t Referred To Contact Surgery Diagnoses 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 Cyst of lumbar facet joint [M71.38] Spinal stenosis of lumbar region with neurogenic claudication [M48.062] Procedures [place] NEWELL W/O FACETEC FORAMOT/DSKC 1/2 VRT SEG, LUMBAR Lumbar 5 to Sacral 1 Decompression [facility] [address] [place] [address] [place] [address] Phone: tel: fax: Referral ID Status Reason Start Date Expiration Date Visits Re quested Visits Authorized [id number] 1 1 Encounter Details Date Type Department Care Team (Late st Contact Info) Description 09/11/2024 11:55 AM CDT - 09/11/2024 2:15 PM CDT Surgery [facility] [address] [place] [address] [place] [phone] Jorge A Storey MD [address] [place] [address] Lumbar 5 to Sacral 1 Decompression Surgery [...] in an abandoned building, in an overnight senior care, or couch-surfing.) Yes 09/11/2024 Are you worried [...] 12:50 PM Jorge A Storey MD [facility] 01/02/2025 10:45 AM Sydney Huff DO [facility] Orthopedic Surgery appointments are at the [facility] [place] ([address] [place] [address]). Call [phone] to schedule a follow-up appointment at this [...] not prescribe medication for anticoagulation. Follow Up ([facility]) Order Comments: Follow up with Dr. Storey 10/28/24 Appointments on [place] and/or [facility] (with [facility] or [facility] provider or service). Call [phone] if you haven't heard regarding these appointments [...] then please page the orthopedic surgery resident fire protection fabricator. FOLLOWUP: Future Appointments Date Time Provider Department Center 10/28/2024 12:50 PM Jorge A Storey MD [facility] 01/02/2025 10:45 AM Sydney Huff DO [facility] * Hesham Pak MD - 09/14/2024 7:19 AM CDT [facility] Medicine Progress Note - Hospitalist Service, GOLD [...] home on POD #2-3. - restarted on DAIRY HAND MS contin 15 mg bid - pain managed Chronic pain - DAIRY HAND MS contin restarted Essential tremor Polyneuropathy - [...] Anticipated Today Hesham Pak MD Hospitalist Service, [facility] TEAM [address] [place] [address] Securely message with [employer] (more info) Text page via [employer] Paging/Directory See signed in provider for up [...] then please page the orthopedic surgery resident fire protection fabricator. FOLLOWUP: Future Appointments Date Time Provider Department Center 10/28/2024 12:50 PM Jorge A Storey MD [facility] 01/02/2025 10:45 AM Sydney Huff DO [facility] * Hesham Pak MD - 09/13/2024 8:06 AM CDT [facility] Medicine Progress Note - Hospitalist Service, [facility] TEAM 16 Date of Admission: [...] home on POD #2-3. - restarted on DAIRY HAND MS contin 15 mg bid Chronic pain - DAIRY HAND MS contin restarted Essential tremor Polyneuropathy - [...] Anticipated Tomorrow Hesham Pak MD Hospitalist Service, [address] Securely message with [employer] (more info) Text page via [facility] Paging/Directory See signed in provider for up [...] WFL Bed Mobility Bed Mobility supine-sit Supine-Sit Chandler (Bed Mobility) verbal cues;supervision Assistive Device (Bed Mobility) bed rails Transfers Transfers sit-stand transfer Sit-Stand Transfer Sit-Stand Chandler (Transfers) verbal cues;contact guard Gait/Stairs (Locomotion) Chandler Level (Gait) contact guard Assistive Device (Gait) [...] Evaluation Time PT Eval, Low Complexity Minutes (66015) 10 Therapy Certification Start of care date [...] dynamic activities to improve functional performance Minutes (56992) 30 Symptoms Noted During/After Treatment Increased pain [...] of timed and untimed services) 40 M [facility] OUTPATIENT PHYSICAL THERAPY PLAN OF TREATMENT FOR OUTPATIENT REHABILITATION Patient's Last Name, First Name, Luis Combs Date of : 1940 Provider's Name [facility] Onset Date: 09/11/24 Start of Care [...] saw and evaluated Luis Markham as an TOOL AND GAUGE INSPECTOR visit. I personally reviewed the vital signs and medications. Truman Rojo NP Date of Service (when I saw the patient): 09/12/24 * Hesham Pak MD - 09/12/2024 8:18 AM CDT [facility] Medicine Progress Note - Hospitalist Service, BRIGID [...] home on POD #2-3. - restarted on DAIRY HAND MS contin 15 mg bid Chronic pain - DAIRY HAND MS contin restarted Essential tremor Polyneuropathy - [...] Pak MD Hospitalist Service, GOLD TEAM 16 [facility] Securely message with [employer] (more info) Text page via [facility] Paging/Directory See signed in provider for up [...] be read by a radiologist or a [facility] non-radiologist provider. * Vinayak Zhu MD - [...] then please page the orthopedic surgery resident fire protection fabricator. FOLLOWUP: Future Appointments Date Time Provider Department Center 09/12/2024 2:15 PM Vonda Vizcarra, PT [facility] 10/28/2024 12:50 PM Jorge A Storey MD [facility] 01/02/2025 10:45 AM Sydney Huff DO [facility] [...] Order(s): INTERNAL MEDICINE ADULT IP CONSULT FOR [place] [facility] Consult Note - Hospitalist ServiceBRIGID TEAM [...] PPX Chronic pain - on MS contin DAIRY HAND , consider restarting , has PRN pain medications Essential tremor Polyneuropathy - mostly involves right History thrombocytosis -tells me me sees amusement park worker and is on hydroxyurea check CBC in AM and decide if can restart and would discussed with discussed with orthopedic surgery as well as it can impact wound healing . Lastplt count I can see in [facility] is way back from 2021 History of DVT right lower extremities in 2021 - sounds like was after trauma thus provoked - no longer on AC Clinically Significant Risk Factors Present on Admission Anne-Marie Hogan MD Hospitalist Service, GOLD TEAM Securely message with [employer] (more info) Text page via [facility] Paging/Directory See signed in provider for up to date coverage information Chief Complaint Back pain History is obtained from the patient and reviewing records in [facility] History of Present Illness Luis Markham is [...] Repair Of Hernia; Proc Date: 03/28/2003; Comments: [facility] Dr. [place] REMOVE MESH FROM ABD WALL FOR INFECTION Description: Debridement For Necrot Infect W/ Removal Of Mesh; Recorded: 06/21/2010; Comments: of ventral hernia Apr 2010 at [facility] APPENDECTOMY Description: Appendectomy; Recorded: 06/21/2010; Comments: 1958 [facility] APPENDECTOMY Description: Appendectomy; Proc Date: 05/28/1956; Comments: [place] [facility] PART REMOVAL COLON W ANASTOMOSIS Description: Partial [...] be read by a radiologist or a [facility] non-radiologist provider. documented in this encounter Nursing Notes * Chiqui Ba RN - 09/11/2024 3:49 PM CDT Images from the original note were not included. PACU to Inpatient Nursing Handoff Patient Luis Markham is a 83 year old male who speaks Fijian. Procedure Procedure(s): Lumbar 5 to Sacral 1 [...] 50 mcg Given Intravenous Jessica Reynolds APRN AUDITING MANAGER 1415 50 mcg Given Intravenous Jessica Velazquez APRN CRNA HYDROmorphone 1 mg/mL (mg) Total dose: 0.5 mg Date/Time Rate/Dose/Volume Action Route Admin User Audit 09/11/24 1422 0.5 mg Given Intravenous Shirilla, Jessica MAMBROSION AUDITING MANAGER lidocaine 2% (mg) Total dose: 60 mg Date/Time Rate/Dose/Volume Action Route Admin User Audit 09/11/24 1241 60 mg Given Intravenous Gail, Jessica Freeman APRN AUDITING MANAGER propofol 10 mg/mL (mg) Total dose: 130 mg Date/Time Rate/Dose/Volume Action Route Admin User Audit 09/11/24 1241 130 mg Given Intravenous Jessica Reynolds APRN AUDITING MANAGER ketamine 10 mg/mL (mg) Total dose: 50 mg Date/Time Rate/Dose/Volume Action Route Admin User Audit 09/11/24 1241 30 mg Given Intravenous Nybo, Jessica L TOOL AND GAUGE INSPECTOR AUDITING MANAGER 1330 20 mg Given Intravenous Shirilla, Jessica M, TOOL AND GAUGE INSPECTOR AUDITING MANAGER rocuronium 10 mg/mL (mg) Total dose: 50 mg Date/Time Rate/Dose/Volume Action Route Admin User Audit 09/11/24 1241 50 mg Given Intravenous Jessica Reynolds APRN AUDITING MANAGER ePHEDrine 5 mg/mL in NS (mg) Total dose: 25 mg Date/Time Rate/Dose/Volume Action Route Admin User Audit 09/11/24 1328 5 mg Given Intravenous Shirilla, Jessica M, TOOL AND GAUGE INSPECTOR AUDITING MANAGER 1336 10 mg Given Intravenous Shirilla, Jessica M, TOOL AND GAUGE INSPECTOR AUDITING MANAGER 1343 5 mg Given Intravenous Shirilla, Jessica M, TOOL AND GAUGE INSPECTOR AUDITING MANAGER 1349 5 mg Given Intravenous Shirilla, Jessica M TOOL AND GAUGE INSPECTOR AUDITING MANAGER phenylephrine (SHANON-SYNEPHRINE) injection (mcg) Total dose: 750 mcg Date/Time Rate/Dose/Volume Action Route Admin User Audit 09/11/24 1300 100 mcg New Bag Intravenous Nybo, Jessica L, TOOL AND GAUGE INSPECTOR AUDITING MANAGER edited 1302 150 mcg New Bag Intravenous Nybo, Jessica L, TOOL AND GAUGE INSPECTOR AUDITING MANAGER edited 1319 100 mcg Bolus Intravenous Nybo, Jessica L, TOOL AND GAUGE INSPECTOR AUDITING MANAGER 1352 100 mcg Bolus Intravenous Shirilla, Jessica M, TOOL AND GAUGE INSPECTOR AUDITING MANAGER 1401 100 mcg Bolus Intravenous Shirilla, Jessica M, TOOL AND GAUGE INSPECTOR AUDITING MANAGER 1430 100 mcg Bolus Intravenous Shirilla, Jessica M, TOOL AND GAUGE INSPECTOR AUDITING MANAGER 1446 100 mcg Bolus Intravenous Fellegy, Mattillukas A, TOOL AND GAUGE INSPECTOR AUDITING MANAGER dexamethasone (DECADRON) 4 mg/mL (mg) Total dose: [...] mL/hr New Bag Intravenous Shirada, Jessica M, TOOL AND GAUGE INSPECTOR AUDITING MANAGER 1419 Stopped Intravenous Jessica Velazquez, TOOL AND GAUGE INSPECTOR AUDITING MANAGER LR (mL) Total volume: 1,400 mL Date/Time Rate/Dose/Volume Action Route Admin User Audit 09/11/24 1234 New Bag Intravenous Jessica Reynolds, TOOL AND GAUGE INSPECTOR AUDITING MANAGER 1336 1,000 mL New Bag Intravenous Jessica Velazquez, TOOL AND GAUGE INSPECTOR AUDITING MANAGER 1457 400 mL Anesthesia Volume Adjustment Intravenous Luisana Lawson, TOOL AND GAUGE INSPECTOR AUDITING MANAGER albumin 5% (mL) Total volume: 250 mL Date/Time Rate/Dose/Volume Action Route Admin User Audit 09/11/24 1337 New Bag Intravenous Jessica Velazquez, TOOL AND GAUGE INSPECTOR AUDITING MANAGER 1348 250 mL Stopped Intravenous Jessica Velazquez, TOOL AND GAUGE INSPECTOR AUDITING MANAGER Local Meds No Antibiotics cefazolin (Ancef) - last given at 1241 Pain Patient Currently in Pain: yes PACU meds fentanyl (Sublimaze): 50 mcg (total dose) last given at 1526 hydromorphone (Dilaudid): 0.4 mg (total dose) last given at 1557 POTTERY DECORATION DESIGNER / epidural No Capnography Yes Telemetry ECG Rhythm: Normal sinus rhythm Inpatient Compressor Station Engineer Ordered? No Labs Glucose Lab Results Component [...] Date 09/11/24 0700 - 09/12/24 0659 Shift 1670-4639 1535-3497 5895-7516 24 Hour Total INTAKE I.V. 1400 1400 Colloid 250 250 Shift Total(mL/kg) 1650(25.62) 1650(25.62) OUTPUT Blood 10 10 Shift Total(mL/kg) 10(0.16) 10(0.16) Weight (kg) 64.4 64.4 64.4 64.4 Drains / Baker Drain Closed/Suction Inferior;Left;Medial Back Accordion 10 Georgian (Active) Site Description UTV 09/11/24 1503 Drainage [...] goal(s). See goals on Care Plan in [facility] electronic health record for goal details. [...] Progress: no change Outcome Evaluation: Afebrile, AOx4, NINILCHIK, able to turn and change position independently [...] dilaudid x1 Does patient have an identified middle school sports coach: Yes Has goal D/C date and time been discussed with patient: Yes * Plan of Care - Munira Presley RN - 09/12/2024 1:42 AM CDT [id number] Goal Outcome Evaluation: Plan of Care Reviewed [...] is good medication historian. Changes made to DAIRY HAND medication list: Added: None Deleted: None Changed: [...] By: Deniz Mullen RPH 09/11/2024 9:41 PM DAIRY HAND Med List Medication Sig Note Last Dose/Taking [...] to home on POD #2-3. Indications for plumber's assistant: I assisted in positioning, exposure, retraction, instrumentation, hemostasis, and wound closure allowing for reduction in anesthesia time and blood loss. Vinayak Zhu MD Spine Fellow Please page me with any questions/concerns during regular weekday hours before 4pm. If there is no response, if it is a weekend, or if it is during evening hours then please page the orthopaedic surgery resident fire protection fabricator. * Op Note - Jorge A Storey [...] cyst. PRIMARY SURGEON: Jorge A Storey MD MANAGER RESIDENTIAL: Vinayak Keen, Fellow Surgeon,The plumber's assistant was necessary for all phases of [...] CDT Office Visit [facility] [place] [address] [facility] 4th [place] [phone] Jorge A Storey MD [address] [place] [address] 01/02/2025 10:45 AM CDT Office Visit [facility] [address] [address] Sydney Huff DO [address] [place], [place] 546235 documented as of this encounter Procedures Procedure [...] this encounter Results * Extra Green Top (Amana Heparin) Tube (09/13/2024 7:14 AM CDT) Hold Specimen JIC 09/13/2024 10:16 AM CDT UR LABORATORY Blood STRUCTURE OF RIGHT UPPER LIMB / Unknown Venipuncture / Unknown 09/13/2024 7:14 AM CDT 09/13/2024 9:13 AM CDT us Jorge A Storey MD LAB - BLOOD ORDERAB LES Final Result UR LABORATORY [facility] Acute Care Lab [facility], Room [place] [phone] * (ABNORMAL) Hemoglobin (09/13/2024 7:14 AM CDT) Pathologist [facility] Hemoglobin 9.4(L) 13.3 - 17.7 g/dL 09/13/2024 8:00 AM CDT UR LABORATORY Blood STRUCTURE OF RIGHT UPPER LIMB / Unknown Venipuncture / Unknown 09/13/2024 7:14 AM CDT 09/13/2024 7:53 AM CDT us Jonh Burch MD LAB - BLOOD ORDERABLES Final Res ult UR LABORATORY [facility] [address] [place] [address], Room [address] * (ABNORMAL) CBC with platelets and differential (09/12/2024 5:49 AM CDT) Pathologist [facility] WBC Count 5.8 4.0 - 11.0 10e3/uL [...] - BLOOD ORDERABLES Final Result UR LABORATORY [facility] Acute [facility] Lab [address] [facility], Room [place] [phone] * Creatinine (09/12/2024 5:49 AM CDT) [...] ORDERABLES Final Res ult Performing Organization Address City/[facility] Co de Phone Number UR LABORATORY [facility] [address] [place] [address], Room [place] [phone] * XR Lumbar Spine Port 1 View (09/11/2024 1:45 PM CDT) Narrative [facility] - 09/11/2024 1:45 PM CDT This exam was marked as non-reportable because it will not be read by a radiologist or a [facility] non-radiologist provider. us Jorge A Storey MD IMG DIAGNOSTIC IMAG ING ORDERABLES Final Result Performing Organization Address City/[facility]/ZIP Co de Phone Number [facility] documented in [...] 2:14 PM CDT 60 mLs Operative Site/Surgi aveyr Site ceFAZolin (ANCEF) 2 g in dextrose [...] if patient having bowel movement., Starting on [place] 09/14/24 at 0000, Hold for loose stools. [...] confusion/somnolence. 0827 (See Alternative - Provider: Ana rFiedman RN)1357 (See Alternative - Provider: Ana Friedman [...] (ZOFRAN). documented in this encounter Care Teams Golf Club Head Inspector Relationship Specialty Start Date End Date Nicolette Parikh MD [facility] [address] [address] PCP - General Internal Medicine 10/18/22 Sydney Huff DO [address] [place] [address] Neurology 08/05/21 Leidy Henderson AuD [address] [place] [address] Hospital Laboratory Technician Audiology 11/14/21 Sydney Huff DO [address] [place] [address] Assigned Neuroscience Provider 01/21/22 Rd Chang MD [address] [place] [address] [id number] Assigned PCP 04/19/24 Jorge A Storey MD [address] [place] [address] Assigned Musculoskeletal Provider 08/17/24 documented as of this encounter
--- OUTSIDE RECORDS SUMMARY | 2024-10-03 14:01 | XMS_ITS | Encounter Summary ---
Author Organization [facility] Address [address] [place] [address]. [place] [address] Care Team Providers Care Mobile Patrol Officer Name Role Phone RefugioSydney romano Unavailable [phone] Leidy Henderson Unavailable [phone] Beto Huffistine Unavailable [phone] Nicolette Parikh MD Primary Care Provider Rd Chang MD Unavailable [phone] Jorge A Storey MD Unavailable + [phone] Reason for Visit * Auth/Cert Specialty Diagnoses / Procedures Referred By Arron t Referred To Contact Surgery Diagnoses 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 Cyst of lumbar facet joint [M71.38] Spinal stenosis of lumbar region with neurogenic claudication [M48.062] Procedures [place] NEWELL W/O FACETEC FORAMOT/DSKC 1/2 VRT SEG, LUMBAR Lumbar 5 to Sacral 1 Decompression [facility] PeriOp Services [address] [place] [phone] Phone: tel: fax: Referral ID Status Reason Start Date Expiration Date Visits Re quested Visits Authorized [id number] 1 1 Encounter Details Date Type Department Care Team (Late st Contact Info) Description 09/11/2024 9:47 AM CDT - 09/14/2024 2:35 PM CDT Hospital Encounter [facility] Med Surg [address] [place] [phone] Jorge A Storey MD [address] [place], [place] [phone] Vinayak Zhu MD [address] [place], [place] [address] Discharge Disposition: Home or Self Care Social [...] in an abandoned building, in an overnight penitentiary, or couch-surfing.) Yes 09/11/2024 Are you worried [...] 12:50 PM Jorge A Storey MD [facility] 01/02/2025 10:45 AM Sydney Huff DO [facility] Orthopedic Surgery appointments are at the [facility] ([address] [place] [address]). Call [phone] to schedule a follow-up appointment at this [...] not prescribe medication for anticoagulation. Follow Up ([facility]) Order Comments: Follow up with Dr. Storey 10/28/24 Appointments on [place] and/or [facility] (with [facility] or [facility] provider or service). Call [phone] if you haven't heard regarding these appointments [...] then please page the orthopedic surgery resident road monkey. FOLLOWUP: Future Appointments Date Time Provider Department Center 10/28/2024 12:50 PM Jorge A Storey MD [facility] 01/02/2025 10:45 AM Sydney Huff DO [facility] * Hesham Pak MD - 09/14/2024 7:19 AM CDT [facility] Medicine Progress Note - Hospitalist Service, [facility] TEAM 16 Date of Admission: 09/11/2024 [...] home on POD #2-3. - restarted on SADDLE STITCHING MACHINE OPERATOR MS contin 15 mg bid - pain managed Chronic pain - SADDLE STITCHING MACHINE OPERATOR MS contin restarted Essential tremor Polyneuropathy - [...] Hesham Pak MD Hospitalist Service, GOLD TEAM [address] [place] [address] Securely message with [employer] (more info) Text page via [employer] Paging/Directory See signed in provider for up [...] then please page the orthopedic surgery resident road monkey. FOLLOWUP: Future Appointments Date Time Provider Department Center 10/28/2024 12:50 PM Jorge A Storey MD [facility] 01/02/2025 10:45 AM Sydney Huff DO [facility] * Hesham Pak MD - 09/13/2024 8:06 AM CDT [facility] Progress Note - Hospitalist Service, [facility] TEAM 16 Date of Admission: 09/11/2024 [...] home on POD #2-3. - restarted on SADDLE STITCHING MACHINE OPERATOR MS contin 15 mg bid Chronic pain - SADDLE STITCHING MACHINE OPERATOR MS contin restarted Essential tremor Polyneuropathy - [...] Hesham Pak MD Hospitalist Service, GOLD TEAM [address] [place] [address] Securely message with [employer] (more info) Text page via [facility] Paging/Directory See signed in provider for [...] WFL Bed Mobility Bed Mobility supine-sit Supine-Sit [place] (Bed Mobility) verbal cues;supervision Assistive Device (Bed Mobility) bed rails Transfers Transfers sit-stand transfer Sit-Stand Transfer Sit-Stand [place] (Transfers) verbal cues;contact guard Gait/Stairs (Locomotion) [place] Level (Gait) contact guard Assistive Device (Gait) [...] Evaluation Time PT Eval, Low Complexity Minutes (19340) 10 Therapy Certification Start of care date [...] dynamic activities to improve functional performance Minutes (33604) 30 Symptoms Noted During/After Treatment Increased pain [...] (sum of timed and untimed services) 40 [facility] OUTPATIENT PHYSICAL THERAPY PLAN OF TREATMENT FOR OUTPATIENT REHABILITATION Patient's Last Name, First Name, Luis Combs Date of : 1940 Provider's Name [facility] Onset Date: 09/11/24 Start of Care Date: [...] saw and evaluated Luis Markham as an ABATTOIR MANAGER visit. I personally reviewed the vital signs and medications. Truman Rojo NP Date of Service (when I saw the patient): 09/12/24 * Hesham Pak MD - 09/12/2024 8:18 AM CDT [facility] Progress Note - Hospitalist Service, GOLD [...] home on POD #2-3. - restarted on SADDLE STITCHING MACHINE OPERATOR MS contin 15 mg bid Chronic pain - SADDLE STITCHING MACHINE OPERATOR MS contin restarted Essential tremor Polyneuropathy - [...] MD Hospitalist Service, GOLD TEAM 16 [facility] Securely message with [employer] (more info) Text page via [facility] Paging/Directory See signed in provider for up [...] be read by a radiologist or a [place] non-radiologist provider. * Vinayak Zhu MD - [...] then please page the orthopedic surgery resident road monkey. FOLLOWUP: Future Appointments Date Time Provider Department Center 09/12/2024 2:15 PM Vonda Vizcarra, PT [facility] [place] 10/28/2024 12:50 PM Jorge A Storey MD [facility] 01/02/2025 10:45 AM Sydney Huff DO [facility] [...] Order(s): INTERNAL MEDICINE ADULT IP CONSULT FOR [facility] Consult Note - Hospitalist Service, BRIGID TEAM [...] PPX Chronic pain - on MS contin SADDLE STITCHING MACHINE OPERATOR , consider restarting , has PRN pain medications Essential tremor Polyneuropathy - mostly involves right History thrombocytosis -tells me me sees supervisor coin machine and is on hydroxyurea check CBC in [...] Hospitalist Service, BRIGID TEAM Securely message with [employer] (more info) Text page via [employer] Paging/Directory See signed in provider for up [...] Description: Cholecystectomy; Recorded: 06/21/2010; Comments: July 2002 [place] LAP, VENTRAL HERNIA REPAIR,REDUCIBLE Description: Laparoscopy Repair Of Umbilical Hernia; Recorded: 06/21/2010; Comments: complicated byperforation of the bowel that went unrecognized and led to septic shock [place] LAP, VENTRAL HERNIA REPAIR,REDUCIBLE Description: Laparoscopy Repair Of Ventral Hernia; Recorded: 06/21/2010; Comments: September of 2009 whenexpander removed and mesh placed. [place] LAP,HERNIA REPAIR PROC,UNLIST Description: Laparoscopy Repair Of Hernia; Proc Date: 03/28/2003; Comments: [facility] [place] REMOVE MESH FROM ABD WALL FOR INFECTION Description: Debridement For Necrot Infect W/ Removal Of Mesh; Recorded: 06/21/2010; Comments: of ventral hernia Apr [address] [facility] APPENDECTOMY Description: Appendectomy; Recorded: 06/21/2010; Comments: 1958 [facility] APPENDECTOMY Description: Appendectomy; Proc Date: 05/28/1956; Comments: [facility] PART REMOVAL COLON W ANASTOMOSIS Description: [...] be read by a radiologist or a [place] non-radiologist provider. documented in this encounter Nursing Notes * Chiqui Ba, RN - 09/11/2024 3:49 PM CDT Images from the original note were not included. PACU to Inpatient Nursing Handoff Patient Luis Markham is a 83 year old male who speaks Salvadorean. Procedure Procedure(s): Lumbar 5 to Sacral 1 [...] 50 mcg Given Intravenous Jessica Reynolds APRN PSYCHOLOGICAL OPERATIONS 1415 50 mcg Given Intravenous Jessica Velazquez [...] 1241 130 mg Given Intravenous Jessica Reynolds ABATTOIR MANAGER PSYCHOLOGICAL OPERATIONS ketamine 10 mg/mL (mg) Total dose: 50 mg Date/Time Rate/Dose/Volume Action Route Admin User Audit 09/11/24 1241 30 mg Given Intravenous Nybo, Jessica L, ABATTOIR MANAGER PSYCHOLOGICAL OPERATIONS 1330 20 mg Given Intravenous Shirilla, Jessica M, ABATTOIR MANAGER PSYCHOLOGICAL OPERATIONS rocuronium 10 mg/mL (mg) Total dose: 50 mg Date/Time Rate/Dose/Volume Action Route Admin User Audit 09/11/24 1241 50 mg Given Intravenous Gail, Jessica Freeman ABATTOIR MANAGER PSYCHOLOGICAL OPERATIONS ePHEDrine 5 mg/mL in NS (mg) Total dose: 25 mg Date/Time Rate/Dose/Volume Action Route Admin User Audit 09/11/24 1328 5 mg Given Intravenous Shirilla, Jessica M, ABATTOIR MANAGER PSYCHOLOGICAL OPERATIONS 1336 10 mg Given Intravenous Shirilla, Jessica M, ABATTOIR MANAGER PSYCHOLOGICAL OPERATIONS 1343 5 mg Given Intravenous Shirilla, Jessica M, ABATTOIR MANAGER PSYCHOLOGICAL OPERATIONS 1349 5 mg Given Intravenous Shirilla, Jessica M, ABATTOIR MANAGER PSYCHOLOGICAL OPERATIONS phenylephrine (SHANON-SYNEPHRINE) injection (mcg) Total dose: 750 mcg Date/Time Rate/Dose/Volume Action Route Admin User Audit 09/11/24 1300 100 mcg New Bag Intravenous Nybo, Jessica L, ABATTOIR MANAGER PSYCHOLOGICAL OPERATIONS edited 1302 150 mcg New Bag Intravenous Nybo, Jessica L, ABATTOIR MANAGER PSYCHOLOGICAL OPERATIONS edited 1319 100 mcg Bolus Intravenous Nybo, Jessica L, ABATTOIR MANAGER PSYCHOLOGICAL OPERATIONS 1352 100 mcg Bolus Intravenous Shirilla, Jessica M, ABATTOIR MANAGER PSYCHOLOGICAL OPERATIONS 1401 100 mcg Bolus Intravenous Shirilla, Jessica M, ABATTOIR MANAGER PSYCHOLOGICAL OPERATIONS 1430 100 mcg Bolus Intravenous Shirilla, Jessica M, ABATTOIR MANAGER PSYCHOLOGICAL OPERATIONS 1446 100 mcg Bolus Intravenous Fellegy, Mattilyn A, ABATTOIR MANAGER PSYCHOLOGICAL OPERATIONS dexamethasone (DECADRON) 4 mg/mL (mg) Total dose: 8 mg Date/Time Rate/Dose/Volume Action Route Admin User Audit 09/11/24 1328 8 mg Given Intravenous Shirilla, Jessica M, ABATTOIR MANAGER PSYCHOLOGICAL OPERATIONS ondansetron 2 mg/mL (mg) Total dose: 4 mg Date/Time Rate/Dose/Volume Action Route Admin User Audit 09/11/24 1410 4 mg Given Intravenous Shirilla, Jessica M, ABATTOIR MANAGER PSYCHOLOGICAL OPERATIONS sugammadex (BRIDION) 200mg/2mL (mg) Total dose: 100 mg Date/Time Rate/Dose/Volume Action Route Admin User Audit 09/11/24 1450 100 mg Given Intravenous Fellegy, Mattilyn RYLEY Gomez PSYCHOLOGICAL OPERATIONS tranexamic acid (CYKLOKAPRON) 1,930 mg in sodium chloride 0.9 % 50 mL bolus (mg) Total dose: 1,932 mg Dosing weight: 64.4 Date/Time Rate/Dose/Volume Action Route Admin User Audit 09/11/24 1300 1,932 mg New Bag Intravenous Gail, Jessica Freeman APRN PSYCHOLOGICAL OPERATIONS edited tranexamic acid (CYKLOKAPRON) 2 g in [...] mL/hr New Bag Intravenous ShirJessica caballero APRN PSYCHOLOGICAL OPERATIONS 1419 Stopped Intravenous Jessica Velazquez APRN PSYCHOLOGICAL OPERATIONS LR (mL) Total volume: 1,400 mL Date/Time Rate/Dose/Volume Action Route Admin User Audit 09/11/24 1234 New Bag Intravenous Jessica Reynolds APRN PSYCHOLOGICAL OPERATIONS 1336 1,000 mL New Bag Intravenous ShirJessica caballero APRN PSYCHOLOGICAL OPERATIONS 1457 400 mL Anesthesia Volume Adjustment Intravenous Fellegy, Mattilyn A, ABATTOIR MANAGER PSYCHOLOGICAL OPERATIONS albumin 5% (mL) Total volume: 250 mL [...] mg (total dose) last given at 1557 MARINE ELECTRICIAN APPRENTICE / epidural No Capnography Yes Telemetry ECG Rhythm: Normal sinus rhythm Inpatient Rail Detector Car Operator Ordered? No Labs Glucose Lab Results Component [...] Date 09/11/24 0700 - 09/12/24 0659 Shift 4764-7148 8708-4531 3534-4538 24 Hour Total INTAKE I.V. 1400 1400 Colloid 250 250 Shift Total(mL/kg) 1650(25.62) 1650(25.62) OUTPUT Blood 10 10 Shift Total(mL/kg) 10(0.16) 10(0.16) Weight (kg) 64.4 64.4 64.4 64.4 Drains / Baker Drain Closed/Suction Inferior;Left;Medial Back Accordion 10 English (Active) Site Description UTV 09/11/24 1503 Drainage [...] Progress: no change Outcome Evaluation: Afebrile, AOx4, [place], able to turn and change position independently [...] dilaudid x1 Does patient have an identified swimming coach: Yes Has goal D/C date and time been discussed with patient: Yes * Plan of Care - Munira Presley RN - 09/12/2024 1:42 AM CDT 5126-0880 Goal Outcome Evaluation: Plan of Care Reviewed [...] is good medication historian. Changes made to SADDLE STITCHING MACHINE OPERATOR medication list: Added: None Deleted: None Changed: [...] By: Deniz Mullen RPH 09/11/2024 9:41 PM SADDLE STITCHING MACHINE OPERATOR Med List Medication Sig Note Last Dose/Taking [...] to home on POD #2-3. Indications for admissions assistant: I assisted in positioning, exposure, retraction, instrumentation, hemostasis, and wound closure allowing for reduction in anesthesia time and blood loss. Vinayak Zhu MD Spine Fellow Please page me with any questions/concerns during regular weekday hours before 4pm. If there is no response, if it is a weekend, or if it is during evening hours then please page the orthopaedic surgery resident road monkey. * Op Note - Jorge A Storey [...] cyst. PRIMARY SURGEON: Jorge A Storey MD BUSINESS DEVELOPER: Vinayak Keen, Fellow Surgeon,The admissions assistant was necessary for all phases of [...] Description 10/28/2024 12:50 PM CDT Office Visit [facility] [address] [phone] Jorge A Storey MD [address] [place] [address] 01/02/2025 10:45 AM CDT Office Visit [facility] Neurology Clinic [facility] [address] [place] [address] Sydney Huff DO [address] [place] [address]38805 documented as of this encounter Procedures Procedure [...] this encounter Results * Extra Green Top (Ophiem Heparin) Tube (09/13/2024 7:14 AM CDT) Hold Specimen JIC 09/13/2024 10:16 AM CDT [facility] Blood STRUCTURE OF RIGHT UPPER LIMB / Unknown Venipuncture / Unknown 09/13/2024 7:14 AM CDT 09/13/2024 9:13 AM CDT Jorge A Storey MD LAB - BLOOD ORDERAB LES Final Result UR LAB[facility]ATORY [facility] [address] [facility], Room [address] [phone] * (ABNORMAL) Hemoglobin (09/13/2024 7:14 AM CDT) Pathologist [facility] Hemoglobin 9.4(L) 13.3 - 17.7 g/dL 09/13/2024 8:00 AM CDT [facility] Blood STRUCTURE OF RIGHT UPPER LIMB / Unknown Venipuncture / Unknown 09/13/2024 7:14 AM CDT 09/13/2024 7:53 AM CDT us Jonh Burch MD LAB - BLOOD ORDERABLES Final Res ult Performing Organization Address [facility] Co de Phone Number UR LABORATORY [facility] Acute [facility], Room [place] [phone] * (ABNORMAL) CBC with platelets and differential [...] - BLOOD ORDERABLES Final Result UR LABORATORY [facility] Acute [facility] [address] [facility], Room [address] [place] [address], [facility] * Creatinine (09/12/2024 5:49 [...] BLOOD ORDERABLES Final Res ult UR LAB[facility]ATORY [facility] [address] [facility], [address] [place] [phone] * XR Lumbar Spine Port 1 View (09/11/2024 1:45 PM CDT) Narrative RADIANT - 09/11/2024 1:45 PM CDT This exam was marked as non-reportable because it will not be read by a radiologist or a [place] non-radiologist provider. Jorge A Storey MD IMG [...] analgesic side effects. Hold while on IV MARINE ELECTRICIAN APPRENTICE or with regular IV opioid dosing. $Given [...] drains removed 0508 ($New Bag - Provider: Muinra Presley, TATO)1350 ($New Bag - Provider: Ana [...] Friedman RN) 0857 ($Given - Provider: Tigre Grya RN) 0918 ($Given - Provider: Dane Mcgarry [...] if patient having bowel movement., Starting on [place] 09/14/24 at 0000, Hold for loose stools. [...] (ZOFRAN). documented in this encounter Care Teams Mobile Patrol Officer Relationship Specialty Start Date End Date Nicolette Parikh MD [facility] & [address] [address] PCP - General Internal Medicine 10/18/22 Sydney Huff DO [address] [place] [address] Neurology 08/05/21 Leidy Henderson AuD [address] [place] [address] Chair Inspector And Leveler Audiology 11/14/21 Sydney Huff DO [address] [place] [address] Assigned Neuroscience Provider 01/21/22 Rd Chang MD [address] [place] [address] Assigned PCP 04/19/24 Jorge A Storey MD [address] [place] [address] Assigned Musculoskeletal Provider 08/17/24 documented as of this encounter
--- OUTSIDE RECORDS SUMMARY | 2024-10-03 14:01 | XMS_ITS | Encounter Summary ---
Author Organization [place] Address [address] [place] [address]. [place] [address] Care Team Providers Care Administrative And Program Specialist Name Role Phone RefugioSydney romano Unavailable [phone] Leidy Henderson Unavailable [phone] Refugio Sydneyyanni CAMPBELL Unavailable [phone] Nicolette Parikh MD Primary Care Provider Rd Chang MD Unavailable [phone] Jorge A Storey MD Unavailable [phone] Reason for Visit * Auth/Cert Specialty Diagnoses / Procedures Referred By Arron t Referred To Contact Surgery Diagnoses 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 Cyst of lumbar facet joint [M71.38] Spinal stenosis of lumbar region with neurogenic claudication [M48.062] Procedures [place] NEWELL W/O FACETEC FORAMOT/DSKC 1/2 VRT SEG, LUMBAR Lumbar 5 to Sacral [address] [facility] PeriOp Services [address] [place] [address] [place] [phone] Phone: tel: fax: Referral ID Status Reason Start Date Expiration Date Visits Re quested Visits Authorized [id number] 1 1 Encounter Details Date Type Department Care Team (Late st Contact Info) Description 09/11/2024 12:28 PM CDT Anesthesia Event [facility] PeriOp Services [address] [place] [address] [place] [phone] Margaret Rao MD ANESTHESIOLOGY DEPT [address] [place], [place] [phone] Jessica Velazquez APR[place] [address] [address] [place] [address] Anesthesia Record Procedure Summary Procedure Name Responsible Anesthesiologist Anesthesia Start Time Anesthesia Stop Time Lumbar 5 to Sacral 1 Decompression (Spine) Margaret Rao MD 09/11/24 1228 09/11/24 1505 Events Date Time Event Comment 09/11/2024 0708 1037 ROVING CHANGER Ready for Procedure 1228 An Start Anesthesia [...] signs recorded are pre-induction. SHAISTA PERALES APRN ROVING CHANGER 1241 An Induction 1245 An Intubation 1300 Anesthesia Ready for Procedu re 1303 MD Present 1323 AN INCISION 1436 ROVING CHANGER Handoff I, Luisana Lawson APRN CRNA, attest that I have reviewed all the significant information with the provider relieving me and assuming care of this patient. All questions were answered, anesthesia and OR team are aware of change of ROVING CHANGER. 1457 AN Extubation All extubation criteria met [...] Grade View: 1; Adjucts: Stylet; Placement Person: ROVING CHANGER; Attempts: 1 09/11/24 1245 by Jessica Reynolds APRN ROVING CHANGER 09/11/24 1457 by Luisana Lawson APRN ROVING CHANGER Drain 09/11/24; 1414; Closed/Suction; Inferior, Left, Medial; Back; Accordion; 10 Faroese 09/11/24 1414 by oKko Dinh RN 09/14/24 1000 by Dane Mcgarry [...] in an abandoned building, in an overnight halfway, or couch-surfing.) Yes 09/11/2024 Are you worried [...] Jorge A Storey MD; Location: UR OR OR LAP, VENTRAL HERNIA REPAIR,REDUCIBLE Description: Laparoscopy Repair Of Umbilical Hernia; Recorded: 06/21/2010; Comments: complicated byperforation of the bowel that went unrecognized and led to septic shock [place] LAP, VENTRAL HERNIA REPAIR,REDUCIBLE Description: Laparoscopy Repair Of Ventral Hernia; Recorded: 06/21/2010; Comments: September of 2009 whenexpander removed and mesh placed. [place] LAP,HERNIA REPAIR PROC,UNLIST Description: Laparoscopy Repair Of Hernia; Proc Date: 03/28/2003; Comments: [facility] [place] REMOVE MESH FROM ABD WALL FOR INFECTION Description: Debridement For Necrot Infect W/ Removal Of Mesh; Recorded: 06/21/2010; Comments: of ventral hernia Apr 2010 at [facility] APPENDECTOMY Description: Appendectomy; Recorded: 06/21/2010; Comments: 1958 [facility] APPENDECTOMY Description: Appendectomy; Proc Date: 05/28/1956; Comments: [facility] PART REMOVAL COLON W ANASTOMOSIS Description: [...] and realistic alternatives discussed. Questions answered and patient/real estate representative(s) expressed understanding. - Discussed: Risks, Benefits [...] Start/Stop Times: 09/11/2024 12:45 PM Staff - ROVING CHANGER: Jessica Reynolds APRN CRNA Performed By: ROVING CHANGER Consent for Airway Urgency: elective Indications and [...] Description 10/28/2024 12:50 PM CDT Office Visit [facility] Orthopedic [address] [phone] Jorge A Storey MD [address] [place] [address] 01/02/2025 10:45 AM CDT Office Visit [facility] Neurology [address] [phone] Sydney Huff DO [address] [place] [address] documented as of this encounter Procedures Procedure [...] Start/Stop Times: 09/11/2024 12:45 PM Staff - ROVING CHANGER: Nybo, Jessica L, DISASTER RESPONSE DIRECTOR ROVING CHANGER Performed By: ROVING CHANGER Consent for Airway Urgency: elective Indications and [...] 09/11/2024 12:45 PM us Margaret Conrad MD OR ANESTHESIA Final Result documented in this encounter [...] mL/hr documented in this encounter Care Teams Administrative And Program Specialist Relationship Specialty Start Date End Date Nicolette Parikh MD [facility] [place] [address] PCP - General Internal Medicine 10/18/22 Sydney Huff DO [address] [place] [address] Neurology 08/05/21 Leidy Henderson AuD [address] [place] [address] Job Training Specialist Audiology 11/14/21 Sydney Huff DO [address] [place] [address] Assigned Neuroscience Provider 01/21/22 Rd Chang MD [address] [place] [address] Assigned PCP 04/19/24 Jorge A Storey MD [address] [place] [address] Assigned Musculoskeletal Provider 08/17/24 documented as of this encounter
--- OUTSIDE RECORDS SUMMARY | 2024-10-03 14:01 | XMS_ITS | Encounter Summary ---
Author Organization [place] Address [address] [place] [address] Care Team Providers Care Regional Ehs Manager Name Role Phone Sydney Huff Unavailable [phone] Leidy Henderson Unavailable +[phone] RefugioSydney DO Unavailable +[phone] Nicolette Parikh MD Primary Care Provider Rd Chang MD Unavailable +[phone] Jorge A Storey MD Unavailable + [phone] Reason for Visit * Reason Onset Date Comments Previsit 09/03/2024 Encounter Details Date Type Department Care Team (Late st Contact Info) Description 09/03/2024 PRE VISIT [facility] Preoperative Assessment Center [address] 5th [place] [address] Melody Wood PA-C [address] [place] [address] [phone] Previsit Social History Tobacco Use Types Packs/Day [...] Primary Care Provider: Nicolette Parikh MD - [facility] Pertinent Medical History: Thrombocythemia Most recent EKG+ Tracin08/04/24 - [place] Update August 28, 2024 3:09 PM MMT : Faxed records request to [facility] documented in this encounter Plan of Treatment Upcoming Encounters Date Type Department Care Team (Late st Contact Info) Description 10/28/2024 12:50 PM CDT Office Visit [facility] Orthopedic [address] 4th [place] [phone] Jorge A Storey MD [address] [place] [address] 01/02/2025 10:45 AM CDT Office Visit [facility] Neurology Clinic [address] [phone] Sydney Huff DO [address] [place] [address] documented as of this encounter Visit Diagnoses Not on filedocumented in this encounter Care Teams Regional Ehs Manager Relationship Specialty Start Date End Date Nicolette Parikh MD [facility] - [address] [address] PCP - General Internal Medicine 10/18/22 Sydney Huff DO [address] [place] [address] 90772 Neurology 08/05/21 Leidy Henderson AuD [address] [place] [address] Director Of Safety Audiology 11/14/21 Sydney Huff DO [address] [place] [address] 50465 Assigned Neuroscience Provider 01/21/22 Rd Chang MD [address] [place] [address]10 Assigned PCP 04/19/24 Jorge A tSorey MD [address] [place] [address] 90749 Assigned Musculoskeletal Provider 08/17/24 documented as of this encounter
--- OUTSIDE RECORDS SUMMARY | 2024-10-03 14:01 | XMS_ITS | Encounter Summary ---
Author Organization [place] Address [address] [place] [address] Care Team Providers Care Environmental Services Worker Name Role Phone Sydney Huff DO Unavailable [phone] Leidy Henderson AuD Unavailable [phone] RefugioBetoSydney DO Unavailable +[phone] Nicolette Parikh MD Primary Care Provider Rd Chang MD Unavailable +[phone] Jorge A Storey MD Unavailable +[phone] Encounter Details Date Type Department Care Team (Late st Contact Info) Description 09/01/2024 Documentation Only [facility] [address] [place] [address] Jorge A Storey MD [address] [place] [address] Social History Tobacco Use Types Packs/Day [...] Center 09/03/2024 12:15 PM Melody Wood PA-C [facility] 09/04/2024 11:45 AM [facility] 10/28/2024 12:50 PM Jorge A Storey MD [facility] 01/02/2025 10:45 AM Sydney Huff DO [facility] Patient is scheduled for [...] Description 10/28/2024 12:50 PM CDT Office Visit [facility] Orthopedic [address] [phone] Jorge A Storey MD [address] [place] [address] 01/02/2025 10:45 AM CDT Office Visit [facility] Neurology Clinic [address] [phone] Sydney Huff DO [address] [place] [address] documented as of this encounter Visit Diagnoses Not on filedocumented in this encounter Care Teams Environmental Services Worker Relationship Specialty Start Date End Date Nicolette Parikh MD [address] [address] PCP - General Internal Medicine 10/18/22 Sydney Huff DO [address] [place] [address] Neurology 08/05/21 Leidy Henderson AuD [address] [place] [address] Manager Critical Care Unit Audiology 11/14/21 Sydney Huff DO [address] [place] [address] 22472 Assigned Neuroscience Provider 01/21/22 Rd Chang MD [address] [place] [address] Assigned PCP 04/19/24 Jorge A Storey MD [address] [place] [address] 21580 Assigned Musculoskeletal Provider 08/17/24 documented as of this encounter
--- OUTSIDE RECORDS SUMMARY | 2024-10-03 14:02 | XMS_ITS | Encounter Summary ---
Author Organization [place] Address [address] [place] [address] Care Team Providers Care Straight Ruling Machine Operator Name Role Phone Sydney Huff DO Unavailable [phone] Leidy Henderson AuD Unavailable [phone] Sydney Huff DO Unavailable [phone] Nicolette Parikh MD Primary Care Provider Rd Chang MD Unavailable [phone] Jorge A Storey MD Unavailable + [phone] Reason for Visit * Reason Onset Date Comments Call Back 09/01/2024 Pt spouse callin g with several questions Encounter Details Date Type Department Care Team (Late st Contact Info) Description 09/01/2024 Telephone [facility] Neurosurgery Clinic [address] [address] Jorge A Storey MD [address] [place] [address] Call Back (Pt spouse calling with [...] scheduled for 09/[address] [facility] [place] [facility] She also would like to know if patient should stop taking his vitamins before surgery - D3, and an over the counter sleep aid relaxium. Additionally, patient's PCP stated patient should take morphine the morning of surgery and spouse would like to know if that is accurate. Please call when able. Could we send this information to you in [facility] or would you prefer to receive a phone call?: Patient would prefer a phone call Okay to leave a detailed message?: Yes at Cell number on file: Telephone Information: documented in this encounter Plan of Treatment Upcoming Encounters Date Type Department Care Team (Late st Contact Info) Description 10/28/2024 12:50 PM CDT Office Visit [facility] Orthopedic [address] [place] [address] Jorge A Storey MD [address] [place] [address] 01/02/2025 10:45 AM CDT Office Visit [facility] Neurology Clinic [facility] [address] [place] [phone] Sydney Huff DO [address] [place] [address] documented as of this encounter Visit Diagnoses Not on filedocumented in this encounter Care Teams Straight Ruling Machine Operator Relationship Specialty Start Date End Date Nicolette Parikh MD [address] [address] PCP - General Internal Medicine 10/18/22 Sydney Huff DO [address] [place] [address] Neurology 08/05/21 Leidy Henderson AuD [address] [place] [address] Scuba Instructor Audiology 11/14/21 Sydney Huff DO [address] [place] [address] Assigned Neuroscience Provider 01/21/22 Rd Chang MD [address] [place] [address] Assigned PCP 04/19/24 Jorge A Stoery MD [address] [place] [address] 28089 Assigned Musculoskeletal Provider 08/17/24 documented as of this encounter
--- OUTSIDE RECORDS SUMMARY | 2024-10-03 14:02 | XMS_ITS | Encounter Summary ---
Author Organization [place] Address [address] [place] [address] Care Team Providers Care Quality Assurance Director Name Role Phone Sydney Huff DO Unavailable [phone] Leidy Henderson Unavailable [phone] Sydney Huff DO Unavailable [phone] Nicolette Parikh MD Primary Care Provider Rd Chang MD Unavailable [phone] Jorge A Storey MD Unavailable + [phone] Reason for Visit * Reason Onset Date Comments Schedule Surgery 08/27/2024 Dr Storey Encounter Details Date Type Department Care Team (Late st Contact Info) Description 08/27/2024 Telephone [facility] Neurosurgery Clinic [address] [address] Jorge A Storey MD [address] [place] [address] Schedule Surgery (Dr Storey ) Social [...] , Leonardo Date of Surgery: 09/11/24 Location: [place] 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 Post op: 6 weeks with [...] Office Visit [facility] Orthopedic [address] [place] [phone] Jorge A Storey MD [address] [place] [address] 01/02/2025 10:45 AM CDT Office Visit [facility] Neurology [address] [phone] Sydney Huff DO [address] [place] [address] documented as of this encounter Visit Diagnoses Not on filedocumented in this encounter Care Teams Quality Assurance Director Relationship Specialty Start Date End Date Nicolette Parikh MD [address] [address] PCP - General Internal Medicine 10/18/22 Sydney Huff DO [address] [place] [address] Neurology 08/05/21 Leidy Henedrson AuD [address] [place] [address] Marine Engineering Teacher Audiology 11/14/21 Sydney Huff DO [address] [place] [address]385 Assigned Neuroscience Provider 01/21/22 Rd Chang MD [address] [place] [address] [place] [address] Assigned PCP 04/19/24 Jorge A Storey MD [address] [place] [address] Assigned Musculoskeletal Provider 08/17/24 documented as of this encounter
--- OUTSIDE RECORDS SUMMARY | 2024-10-03 14:02 | XMS_ITS | Encounter Summary ---
Author Organization [place] Address [address] [place] [address] Care Team Providers Care Career Based Intervention Coordinator Name Role Phone Tiff Lamar MD Unavailable [phone] Madalyn Sims NP Unavailable Tiff Lamar MD Primary Care Provider + [phone] Sydney Huff DO Unavailable [phone] Leidy Henderson Unavailable [phone] Sydney Huff DO Unavailable [phone] Sydney Huff DO Unavailable [phone] Nicolette Parikh MD Primary Care Provider Barry Grubbs CNP Unavailable + [phone] Rd Chang MD Unavailable [phone] Jorge A Storey MD Unavailable [phone] Encounter Details Date Type Department Care Team [...] Description 10/28/2024 12:50 PM CDT Office Visit [facility] Orthopedic Clinic [address] 4th [place] [phone] Jorge A Storey MD [address] [place] [address] 01/02/2025 10:45 AM CDT Office Visit [facility] Neurology [place] [address] [place] [phone] Sydney Huff DO [address] [place] [address] documented as of this encounter Visit Diagnoses Not on filedocumented in this encounter Care Teams Career Based Intervention Coordinator Relationship Specialty Start Date End Date Tiff Lamar MD [address] [place] [address] PCP - General Family Practice 10/16/14 03/27/22 Nicolette Parikh MD [address] [address] PCP - General Internal Medicine 10/18/22 Tiff Lamar MD Assigned PCP 11/10/20 09/29/22 Madalyn Sims NP [address] [place] [address] 39536 Assigned Surgical Provider 12/10/20 01/01/21 Sydney Huff DO [address] [place] [address]223 Neurology 08/05/21 Leidy Henderson AuD [address] [place] [address] Director Funds Development Audiology 11/14/21 Sydney Huff DO [address] [place] [address] Assigned Neuroscience Provider 01/21/22 Sydney Huff DO [address] [place] [address] Assigned Neuroscience Provider 11/12/21 01/20/22 Barry Grubbs CNP [address] [facility] [address] [place] [address] Assigned PCP 09/30/22 04/18/24 Rd Chang MD [address] [place] [address] [place] [address] Assigned PCP 04/19/24 Jorge A Storey MD [address] [place] [address] 20652 Assigned Musculoskeletal Provider 08/17/24 documented as of this encounter
--- OUTSIDE RECORDS SUMMARY | 2024-10-03 14:02 | XMS_ITS | Encounter Summary ---
Author Organization [place] Address [address] [place] [address] Care Team Providers Care Coffee Supervisor Name Role Phone Sydney Huff Unavailable [phone] Leidy Henderson Unavailable [phone] Sydney Huff DO Unavailable [phone] Nicolette Parikh MD Primary Care Provider Rd Chang MD Unavailable [phone] Jorge A Storey MD Unavailable + [phone] Reason for Visit * Reason Onset Date Comments Call Back 08/21/2024 update Clinic Care Coordination - Follow-up 08/21/2024 Encounter Details Date Type Department Care Team (Late st Contact Info) Description 08/21/2024 Telephone [facility] Orthopedic [address] [place] [address] Jorge A Storey MD [address] [place] [address] [phone] Call Back (update); Clinic Care Coordination - [...] we send this information to you in [facility] or would you prefer to receive a phone call?: Patient would prefer a phone call Okay to leave a detailed message?: Yes at Home number on file [phone] (home) documented in this encounter Plan of Treatment Upcoming Encounters Date Type Department Care Team (Late st Contact Info) Description 10/28/2024 12:50 PM CDT Office Visit [facility] Orthopedic Clinic [address] [place] [phone] Jorge A Storey MD [address] [place] [address] 01/02/2025 10:45 AM CDT Office Visit [facility] Neurology Clinic [address] [phone] Sydney Huff DO [address] [place] [address] 568985 documented as of this encounter Visit Diagnoses Not on filedocumented in this encounter Care Teams Coffee Supervisor Relationship Specialty Start Date End Date Nicolette Parikh MD [facility] [address] [place] [address] PCP - General Internal Medicine 10/18/22 Sydney Huff DO [address] [place] [address] Neurology 08/05/21 Leidy Henderson AuD [address] [place] [address] Pharmacologist Audiology 11/14/21 Sydney Huff DO [address] [place] [address] 23698 Assigned Neuroscience Provider 01/21/22 Rd Chang MD [address] [place] [address] Assigned PCP 04/19/24 Jorge A Storey MD [address] [place] [address] 66069 Assigned Musculoskeletal Provider 08/17/24 documented as of this encounter
--- OUTSIDE RECORDS SUMMARY | 2024-10-03 14:02 | XMS_ITS | Encounter Summary ---
Author Organization [place] Address [address] [place] [address] Care Team Providers Care Independent Living Advisor Name Role Phone Tiff Lamar MD Unavailable [phone] Madalyn Sims NP Unavailable Tiff Lamar MD Primary Care Provider + [phone] Sydney Huff DO Unavailable [phone] Leidy Henderson Unavailable [phone] Sydney Huff DO Unavailable [phone] Sydney Huff DO Unavailable [phone] Nicolette Parikh MD Primary Care Provider [phone] Barry Grubbs CNP Unavailable + [phone] Rd Chang MD Unavailable [phone] Jorge A Storey MD Unavailable +[phone] Encounter Details Date Type Department Care Team [...] Description 10/28/2024 12:50 PM CDT Office Visit [facility] Orthopedic Clinic [place] [address] [facility] 4th [place] [phone] Jorge A Storey MD [address] [place] [address] 01/02/2025 10:45 AM CDT Office Visit [facility] Neurology [address] [phone] Sydney Huff DO [address] [place] [address] documented as of this encounter Visit Diagnoses Not on filedocumented in this encounter Care Teams Independent Living Advisor Relationship Specialty Start Date End Date Tiff Lamar MD [address] [place] [address] PCP - General Family Practice 10/16/14 03/27/22 Nicolette Parikh MD [address] [address] PCP - General Internal Medicine 10/18/22 Tiff Lamar MD Assigned PCP 11/10/20 09/29/22 Madalyn Sims NP [address] [place] [address] Assigned Surgical Provider 12/10/20 01/01/21 Sydney Huff DO [address] [place] [address] Neurology 08/05/21 Leidy Henderson AuD [facility] [place] [address] Diesel Truck Crane Operator Audiology 11/14/21 Sydney Huff DO [address] [place] [address] Assigned Neuroscience Provider 01/21/22 Sydney Huff DO [address] [place] [address] Assigned Neuroscience Provider 11/12/21 01/20/22 Barry Grubbs CNP [address] [facility] [address] [place] [address] Assigned PCP 09/30/22 04/18/24 Rd Chang MD [address] [place] [address] Assigned PCP 04/19/24 Jorge A Storey MD [address] [place] [address] Assigned Musculoskeletal Provider 08/17/24 documented as of this encounter
--- OUTSIDE RECORDS SUMMARY | 2024-10-03 14:02 | XMS_ITS | Clinical Summary ---
Author Organization [facility] Address [address] [place] [address] Care Team Providers Care Administrative Intern Name Role Phone Tiff Lamar MD Primary Care Provider + [phone] Allergies Active Allergy Reactions Criticality Noted Date [...] Department Care Team Description 07/10/2024 Lab Requisition [facility] [phone] Broderick Gomes MD from Last 3 Months Immunizations Immunization Administration Dates Next Due Tdap 03/03/2014 Family History Relation Name Status Comments Mother Social History Tobacco Use Types Packs/Day Years Used Date Smoking Tobacco: Former Smokeless Tobacco: Never Sex and Gender Information Value Date Recorded Sex Assigned at Not on file Legal Sex Male 5:17 AM PRINTER REPAIR TECHNICIAN Gender Identity Not on file Sexual Orientation Not on file Obstetrics History Last Filed Vital Signs Vital Sign Reading Time Taken Comments Blood Pressure 105/68 07/20/2021 1:41 PM PRINTER REPAIR TECHNICIAN Pulse 72 07/20/2021 1:41 PM PRINTER REPAIR TECHNICIAN Temperature 36.6 C (97.8 F) 07/20/2021 1:41 PM PRINTER REPAIR TECHNICIAN Respiratory Rate 18 07/20/2021 1:41 PM PRINTER REPAIR TECHNICIAN Oxygen Saturation 95% 07/20/2021 1:41 PM PRINTER REPAIR TECHNICIAN Inhaled Oxygen Concentration - - Weight 77.6 kg (171 lb) 07/20/2021 1:41 PM PRINTER REPAIR TECHNICIAN Height 172.7 cm (5' 8) 07/20/2021 1:41 PM PRINTER REPAIR TECHNICIAN Body Mass Index 26 07/20/2021 1:41 PM PRINTER REPAIR TECHNICIAN Plan of Treatment Health Maintenance Due Date [...] PERIPHERAL BLD MORPHOLOGY Routine 07/09/2024 4:04 PM PRINTER REPAIR TECHNICIAN MYELOID NGS (LAB ONLY) Routine 07/09/2024 4:04 PM PRINTER REPAIR TECHNICIAN LAB TRACKING EVENT Routine 07/09/2024 12 :00 PM PRINTER REPAIR TECHNICIAN from Last 3 Months Results * MYELOID NGS (LAB ONLY) (07/09/2024 4:04 PM PRINTER REPAIR TECHNICIAN) Blood (Peripheral Blood) 07/09/2024 4:04 PM PRINTER REPAIR TECHNICIAN 07/11/2024 9:21 AM PRINTER REPAIR TECHNICIAN us Broderick Gomes MD PATHOLOGY/CYTOLOGY Final Resul t [facility] [address] [place] [address], * PERIPHERAL BLD MORPHOLOGY (07/09/2024 4:04 PM PRINTER REPAIR TECHNICIAN) Case Report Special Hematology Report Case: [id number] Authorizing Provider: Broderick Gomes MD Collected: 07/09/2024 1604 Ordering Location: [facility] Received: 07/10/2024 3129 Pathologist: Alvin Schafer MD Specimen: Peripheral Blood 07/21/2024 11:23 AM [facility] Final Diagnosis PERIPHERAL BLOOD: 1. JAK2-positive myeloproliferative neoplasm (MPN), with: a. Moderate thrombocytosis (923K) b. Mild normocytic anemia c. Minimal absolute neutrophilia and absolute monocytosis d. [place] Myeloid myeloproliferative neoplasm panel (CALR, JAK2, MPL): Positive for a JAK2 mutation (VAF 39%); see attached report 07/21/2024 11:23 AM [facility] at 1123 PRINTER REPAIR TECHNICIAN Preliminary result electronically signed by Sameer Elise MD on 07/11/2024 at 1008 PRINTER REPAIR TECHNICIAN Comment The presence of a JAK2 V617F [...] baseline for future comparison. 07/21/2024 11:23 AM [facility] Clinical Information The patient is an 83-year-old male. Per CBC scan: New thrombocytosis with no previous for lab comparison. He is had a persistent thrombocytosis since 2021 that has increased in magnitude. 07/21/2024 11:23 AM [facility] CBC and Differential HEMATOLOGY PARAMETERS Tested at: [facility] RESULTS EXPECTED VALUES WBC: 10.6 4.5-67x4499/cumm RBC: 4.57 4.30-5.90 mil/cumm HGB: 13.4 13.5-17.5 gm/di DECREASED HCT: 41.1 37-53% MCV: 89.9 80-100 fl NORMOCYTIC MCH: 29.3 26-34 pg MCHC: 32.6 32-36 gm/dl NORMOCHROMIC RDW: 15.5 11.5-15.5% PLT: 923 140-234h0073/uL ELEVATED Differential Absolute (%) Expected (%) (x10*9/L) (x10*9/L) Neutrophils: 7.02 (66.2) 1.7-7.0 (42-72%) ELEVATED Lymphocytes: 2.05 (19.3) 0.9-2.9 (20-44%) Monocytes: 0.95 (9) <0.9 (0-11%) ELEVATED Eosinophils: 0.44 (4.2) <0.5 (0-2%) Basophils: 0.09 (.8) <0.3 (<3.0%) Imm Grans: 0.05 (.5) <0.3 (0-3%) (Metas, Myelos,Pros) 07/21/2024 11:23 AM PRINTER REPAIR TECHNICIAN [facility] Microscopic Description The final diagnosis is based on microscopic examination of an appropriately stained blood smear. 07/21/2024 11:23 AM PRINTER REPAIR TECHNICIAN [facility] Additional Information Interpreted at [facility] - [address] [place] [address] 07/21/2024 11:23 AM PRINTER REPAIR TECHNICIAN [facility] Blood (Peripheral Blood) 07/09/2024 4:04 PM PRINTER REPAIR TECHNICIAN 07/10/2024 3:57 PM PRINTER REPAIR TECHNICIAN Broderick Gomes MD HEMATOLOGY Final Result Performing Organization Address [facility] Co de Phone Number [facility] [address] [place] [address], * LAB TRACKING EVENT (07/09/2024 12:00 PM PRINTER REPAIR TECHNICIAN) Other (Other) Client Collect / Unknown 07/09/2024 12:00 PM PRINTER REPAIR TECHNICIAN 07/10/2024 1:55 PM PRINTER REPAIR TECHNICIAN Broderick Gomes MD LAB BILL ONLY Final Result Performing Organization Address [facility] Co de Phone Number [facility] [address] [place] [address], from Last 3 Months Insurance [id number] [address] [place] [address] [employer] MEDICARE ADVANTAGE MR [employer] MED[employer]ARE ADVANTAGE MR Care Teams Administrative Intern Relationship Specialty Start Date End Date Tiff Lamar MD PCP - General Family Practice 07/20/21
--- OUTSIDE RECORDS SUMMARY | 2024-10-03 14:02 | XMS_ITS | Encounter Summary ---
Author Organization [place] Address [address] [place] [address] Care Team Providers Care Dairy Feed Mixing Operator Name Role Phone Tiff Lamar MD Unavailable [phone] Madalyn Sims NP Unavailable Tiff Lamar MD Primary Care Provider + [phone] Sydney Huff DO Unavailable [phone] Leidy Henderson Unavailable [phone] Sydney Huff DO Unavailable [phone] Sydney uHff DO Unavailable [phone] Nicolette Parikh MD Primary Care Provider Barry Grubbs CNP Unavailable + [phone] Rd Chang MD Unavailable [phone] Jorge A Storey MD Unavailable [phone] Encounter Details Date Type Department Care Team [...] Description 10/28/2024 12:50 PM CDT Office Visit [facility] [address] 4th [place] [phone] Jorge A Storey MD [address] [place] [address] 01/02/2025 10:45 AM CDT Office Visit [facility] Neurology [place] [address] [place] [phone] Sydney Huff DO [address] [place] [address] documented as of this encounter Visit Diagnoses Not on filedocumented in this encounter Care Teams Dairy Feed Mixing Operator Relationship Specialty Start Date End Date Tiff Lamar MD [address] [place] [address] PCP - General Family Practice 10/16/14 03/27/22 Nicolette Parikh MD [address] [address] PCP - General Internal Medicine 10/18/22 Tiff Lamar MD Assigned PCP 11/10/20 09/29/22 Madalyn Sims NP [address] [place] [address] Assigned Surgical Provider 12/10/20 01/01/21 Sydney Huff DO [address] [place] [address] Neurology 08/05/21 Leidy Henderson AuD [address] [place] [address] Anesthesiology Physician Assistant Audiology 11/14/21 Sydney Huff DO [address] [place] [address] Assigned Neuroscience Provider 01/21/22 Sydney Huff DO [address] [place] [address] Assigned Neuroscience Provider 11/12/21 01/20/22 Barry Grubbs CNP [address] [facility] [address] [place] [address] Assigned PCP 09/30/22 04/18/24 Rd Chang MD [address] [place] [address] [place] [address] Assigned PCP 04/19/24 Jorge A Storey MD [address] [place] [address] Assigned Musculoskeletal Provider 08/17/24 documented as of this encounter
--- OUTSIDE RECORDS SUMMARY | 2024-10-03 14:02 | XMS_ITS | Encounter Summary ---
Author Organization [place] Address [address] [place] [address] Care Team Providers Care Porcelain Slusher Name Role Phone Sydney Huff DO Unavailable [phone] Leidy Henderson AuD Unavailable [phone] RefugioSydney DO Unavailable [phone] Nicolette Parikh MD Primary Care Provider Rd Chang MD Unavailable [phone] Jorge A Storey MD Unavailable + [phone] Encounter Details Date Type Department Care Team (Late st Contact Info) Description 09/01/2024 Documentation Only [facility] [address] [place] [address] Nicolette Parikh MD [facility] [address] [place] [address] Social History Tobacco Use Types Packs/Day Years [...] Center 09/03/2024 12:15 PM Melody Wood PA-C [facility] 09/04/2024 11:45 AM [facility] 10/28/2024 12:50 PM Jorge A Storey MD [facility] 01/02/2025 10:45 AM Sydney Huff [facility] Patient is scheduled for [...] Description 10/28/2024 12:50 PM CDT Office Visit [facility] [address] [phone] Jorge A Storey MD [address] [place] [address] 696835 01/02/2025 10:45 AM CDT Office Visit [facility] [address] [phone] Sydney Huff DO [address] [place] [address] 405075 documented as of this encounter Visit Diagnoses Not on filedocumented in this encounter Care Teams Porcelain Slusher Relationship Specialty Start Date End Date Nicolette Parikh MD [address] [address] PCP - General Internal Medicine 10/18/22 Sydney Huff DO [address] [place] [address] Neurology 08/05/21 Leidy Henderson AuD [address] [place] [address] Plaster Pattern Caster Audiology 11/14/21 Sydney Huff DO [address] [place] [address] Assigned Neuroscience Provider 01/21/22 Rd Chang MD [address] [place] [address] [place] [address] Assigned PCP 04/19/24 Jorge A Storey MD [address] [place] [address] Assigned Musculoskeletal Provider 08/17/24 documented as of this encounter
--- OUTSIDE RECORDS SUMMARY | 2024-10-03 14:02 | XMS_ITS | Clinical Summary ---
Author Organization [facility] Address [address] [place] [address] Care Team Providers Care Adobe Flex Developer Name Role Phone Sydney Huff DO Unavailable [phone] Leidy Henderson Unavailable [phone] Sydney Huff DO Unavailable [phone] Nicolette Parikh MD Primary Care Provider Rd Chang MD Unavailable [phone] Jorge A Storey MD Unavailable [phone] Allergies Active Allergy Reactions Criticality Noted Date [...] Description 09/11/2024 12:28 PM CDT Anesthesia Event [facility] [address] [place] [phone] Margaret Rao MD Bakke, Dana M, PA-C 09/11/2024 11:55 AM CDT - 09/11/2024 2:15 PM CDT Surgery [facility] [address] [place] [address] [phone] Jorge A Storey MD Lumbar 5 to Sacral 1 Decompression 09/11/2024 9:47 AM CDT - 09/14/2024 2:35 PM CDT Hospital Encounter [facility] Med Surg [address] [place] [phone] Jorge A Storey MD Bisbal-Matos, Luis, MD Discharge Disposition: Home or Self Care 09/09/2024 Travel 09/03/2024 12:15 PM CDT Virtual Visit [facility] Preoperative Assessment [address] [phone] Melody Wood PA-C NO SHOW (Primary Dx) 09/03/2024 PRE VISIT [facility] Preoperative Assessment [address] [phone] Melody Wood PA-C Previsit 09/02/2024 Telephone [facility] Orthopedic [address] [phone] Jorge A Storey MD Patient Request (Lab orders); Clinic Care Coordination - Follow-up 09/01/2024 Documentation Only [facility] [address] [place] [phone] Jorge A Storey MD 09/01/2024 Documentation Only [facility] [place] [address] Nicolette Parikh MD 09/01/2024 Telephone [facility] Neurosurgery [address] [phone] Jorge A Storey MD Call Back (Pt spouse calling with several questions) 08/27/2024 Telephone [facility] Neurosurgery [address] [phone] Jorge A Storey MD Schedule Surgery (Dr Storey ) 08/26/2024 9:40 AM CDT Virtual Visit [facility] Orthopedic [address] [phone] Jorge A Storey MD Cyst of lumbar facet joint (Primary Dx); Spinal stenosis of lumbar region with neurogenic claudication 08/21/2024 Telephone [facility] Orthopedic [address] [phone] Jorge A Storey MD Call Back (update); Clinic Care Coordination - Follow-up 08/12/2024 11:50 AM CDT Virtual Visit [facility] Orthopedic [address] [phone] Jorge A Storey MD Hx of low back pain (Primary Dx) 08/10/2024 Telephone [facility] [address] [place] [phone] Lucy Harrison, mechanical maintenance foreman Request 08/06/2024 6:28 PM CDT - 08/06/2024 11:59 PM CDT Hospital Encounter [facility] [address] [place] [phone] Jorge A Storey MD Hx of low back pain Discharge Disposition: Home or Self Care 08/06/2024 Travel 08/05/2024 Telephone [facility] Orthopedic [address] [phone] Jorge A Storey MD 08/04/2024 Telephone [facility] Neurosurgery [address] [phone] Jorge A Storey MD 07/22/2024 1:00 PM SUMMER NANNY Office Visit [facility] Orthopedic [address] [phone] Jorge A Storey MD Hx of low back pain; Cyst of lumbar facet joint 07/22/2024 12:40 PM SUMMER NANNY Ancillary Procedure [facility] Orthopedic [address] [phone] Jorge A Storey MD Acute right-sided low back pain without sciatica 07/22/2024 Travel 07/22/2024 PRE VISIT [facility] Neurosurgery [address] [phone] Jorge A Storey MD *-*INCOMING RECORDS*-* 07/17/2024 Orders Only [facility] Orthopedic [address] [phone] Jorge A Storey MD Acute right-sided low back pain without sciatica (Primary Dx) 07/16/2024 Telephone [facility] Orthopedic [address] [phone] Jorge A Storey MD 07/16/2024 PRE VISIT [facility] Clinic [phone] [facility] [address] [place] [phone] Avel Jose MD Previsit 07/11/2024 Telephone [facility] Orthopedic [address] [place] [phone] Virgen Green LPN 07/11/2024 Telephone [facility] [address] [place] [phone] Virgen Green LPN 07/10/2024 Transcribe Orders GENERIC EXTERNAL DATA DEPARTMENT Provider, Generic External Data Hx of low back pain (Primary Dx); Cyst of lumbar facet joint 07/10/[address] [facility] Information Management [address] [phone] Scan, Non-Provider from Last 3 Months Immunizations [...] Description 10/28/2024 12:50 PM CDT Office Visit [facility] [place] [address] [facility] 4th [place] [phone] Jorge A Storey MD [address] [place] [address] 01/02/2025 10:45 AM CDT Office Visit [facility] Neurology Clinic [address] [phone] Sydney Huff DO [address] [place] [address] [phone] Health Maintenance Due Date Last Done Comments [...] SPINE 2/3 VIEWS Routine 07/22/2024 12:46 PM SUMMER NANNY Acute right-sided low back pain without sciatica POTASSIUM (EXTERNAL RESULT) Routine 07/09/2024 2:59 PM SUMMER NANNY CREATININE (EXTERNAL RESULT) Routine 07/09/2024 2:59 PM SUMMER NANNY GLUCOSE (EXTERNAL RESULT) Routine 07/09/2024 2:59 PM SUMMER NANNY AST (EXTERNAL RESULT) Routine 07/09/2024 2:59 PM SUMMER NANNY ALT (EXTERNAL RESULT) Routine 07/09/2024 2:59 PM SUMMER NANNY LAB RESULT - HIM SCAN 07/09/2024 12:00 AM SUMMER NANNY EKG CARDIAC - HIM SCAN 07/09/2024 12:00 AM SUMMER NANNY EKG CARDIAC - HIM SCAN 07/09/2024 12:00 AM SUMMER NANNY from Last 3 Months Results * Extra Green Top ([place] Heparin) Tube (09/13/2024 7:14 AM CDT) Hold Specimen JIC 09/13/2024 10:16 AM CDT UR LABORATORY Blood STRUCTURE OF RIGHT UPPER LIMB / Unknown Venipuncture / Unknown 09/13/2024 7:14 AM CDT 09/13/2024 9:13 AM CDT us Jorge A Storey MD LAB - BLOOD ORDERAB LES Final Result UR LABORATORY [facility] [address] [place] [address], Room [address] * (ABNORMAL) Hemoglobin (09/13/2024 7:14 AM CDT) Hemoglobin 9.4(L) 13.3 - 17.7 g/dL 09/13/2024 8:00 AM CDT UR LABORATORY Blood STRUCTURE OF RIGHT UPPER LIMB / Unknown Venipuncture / Unknown 09/13/2024 7:14 AM CDT 09/13/2024 7:53 AM CDT us Jonh Burch MD LAB - BLOOD ORDERABLES Final Res ult UR LABORATORY [facility] [address] [place] [address], Room [address] * (ABNORMAL) CBC with platelets and [...] Final Result Performing Organization Address [facility] Co de Phone Number UR LABORATORY [facility] [address] [place] [address], Room [place] [phone] * Creatinine (09/12/2024 5:49 AM CDT) [...] Res ult Performing Organization Address [facility] de Phone Number UR LABORATORY [facility] [address] [place] [address], Room [place] [phone] * XR Lumbar Spine Port 1 View (09/11/2024 1:45 PM CDT) Narrative [facility] - 09/11/2024 1:45 PM CDT This exam was marked as non-reportable because it will not be read by a radiologist or a [facility] non-radiologist provider. us Jorge A Storey MD IMG DIAGNOSTIC IMAG ING ORDERABLES Final Result Performing Organization Address [facility] Co de Phone Number [facility] * ANE AIRWAY ETT PERFORMABLE (09/11/2024 12:45 PM CDT) Narrative Jessica Reynolds APRN BRANCH STORE MANAGER - 09/11/2024 12:45 PM CDT Jessica Reynolds APRN BRANCH STORE MANAGER 09/11/2024 1:22 PM Airway Patient location during procedure: OR Procedure Start/Stop Times: 09/11/2024 12:45 PM Staff - BRANCH STORE MANAGER: Jessica Reynolds APRN BRANCH STORE MANAGER Performed By: BRANCH STORE MANAGER Consent for Airway Urgency: elective Indications and [...] 09/11/2024 12:45 PM us Margaret Conrad MD MT ANESTHESIA Final Result * PHQ-9 DEPRESSION SCREENING ORDER (08/25/2024) PHQ9 SCORE 9 Yuan Aburto - 08/25/2024 [facility] - Progress Note us Provider Outside OTHER Final Result * Potassium (External Result) (08/20/2024 11:04 AM CDT) Only the most recent of3 resultswithin the time period is included. Potassium (External) 4.3 3.6 - 5.1 mmol/L [facility] Blood 08/20/2024 11:0 4 AM CDT Narrative [facility] - 08/20/2024 11:04 AM CDT [facility] - External Lab Results us Provider Outside LAB - HIM EXTERNAL RESULT Final Result [facility] [address] [place] [address], [facility] [phone] * Glucose (External Result) (08/20/2024 11:04 AM CDT) Only the most recent of3 resultswithin the time period is included. Glucose (External) 84 60 - 115 mg/dL [facility] Blood 08/20/2024 11:[address] [facility] - 08/20/2024 11:04 AM CDT [facility] - External Lab Results us Provider Outside LAB - HIM EXTERNAL RESULT Final Result Performing Organization Address City/[facility]/ZIP Co de Phone Number [facility] [address] [place] [address], [facility] [phone] * Creatinine (External Result) (08/20/2024 11:04 AM CDT) Only the most recent of3 resultswithin the time period is included. Creatinine (External) 0.8 0.5 - 1.5 mg/dL [facility] Blood 08/20/2024 11:[address] [facility] - 08/20/2024 11:04 AM CDT [facility] - External Lab Results us Provider Outside LAB - HIM EXTERNAL RESULT Final Result Performing Organization Address [facility] Co de Phone Number [facility] [address] [place] [address], [facility] [phone] * AST (External Result) (08/20/2024 11:04 AM CDT) Only the most recent of2 resultswithin the time period is included. AST (External) 32 12 - 35 U/L [facility] Blood 08/20/2024 11:[address] [facility] - 08/20/2024 11:04 AM CDT [facility] - External Lab Results us Provider Outside LAB - HIM EXTERNAL RESULT Final Result Performing Organization Address City/[facility]/ZIP Co de Phone Number [facility] [address] [place] [address], [facility] [phone] * ALT (External Result) (08/20/2024 11:04 AM CDT) Only the most recent of2 resultswithin the time period is included. ALT (External) 26 4 - 50 U/L [facility] Blood 08/20/2024 11:0 4 AM CDT Narrative [facility] - 08/20/2024 11:04 AM CDT [facility] - External Lab Results us Provider Outside LAB - HIM EXTERNAL RESULT Final Result [facility] [address] [place] [address], [facility] [phone] * Lab Result - HIM Scan (08/20/2024 [...] EXAM: CT LUMBAR SPINE W/O CONTRAST LOCATION: [facility] DATE: 08/06/2024 INDICATION: Hx of low back [...] EXAM: CT LUMBAR SPINE W/O CONTRAST LOCATION: [facility] DATE: 08/06/2024 INDICATION: Hx of low back [...] roots at this level particularly the right [id number]. Moderate bilateral foraminal narrowing, right greater thanleft. [...] Lumbar Spine 2/3 Views (07/22/2024 12:46 PM SUMMER NANNY) Anatomical Region Laterality Modality Spine, T-spine, L-spine, Abdomen/Pelvis Computed Radiography Impressions 07/22/2024 2:40 PM SUMMER NANNY Impression: 1. No acute osseous abnormality. 2. Multilevel degenerative changes, greatest in the lower lumbar spine. TORRIE CARTER DO Narrative 07/22/2024 2:40 PM SUMMER NANNY Exam: XR LUMBAR SPINE 2/3 VIEWS, 07/22/2024 [...] Final Result from Last 3 Months Insurance [facility] MEDICARE [facility] MED[facility] Advance Directives For more information, please contact: [phone] * Full Code (Latest Code Status on File) Date Activated Date Inactivated Comments 09/11/2024 4:44 PM 09/14/2024 4:41 PM All basic an d advanced life-sustaining interventions are performed as appropriate Question Answer Comments Code status determined by: Discussion with patie nt/ legal decision maker Care Teams Adobe Flex Developer Relationship Specialty Start Date End Date Nicolette Parikh MD [address] [address] PCP - General Internal Medicine 10/18/22 Sydney Huff DO [address] [place] [address] Neurology 08/05/21 Leidy Henderson AuD [address] [place] [address] Salon Leader Audiology 11/14/21 Sydney Huff DO [address] [place] [address]707 Assigned Neuroscience Provider 01/21/22 Rd Chang MD [address] [place] [address] [place] [address] Assigned PCP 04/19/24 Jorge A Storey MD [address] [place] [address] Assigned Musculoskeletal Provider 08/17/24
--- OUTSIDE RECORDS SUMMARY | 2024-10-03 14:02 | XMS_ITS | Encounter Summary ---
Author Organization [place] Address [address] [place] [address] Care Team Providers Care Web Development Intern Name Role Phone Sydney Huff Unavailable [phone] Leidy Henderson AuD Unavailable [phone] RefugioSydney Unavailable [phone] Nicolette Parikh MD Primary Care Provider Rd Chang MD Unavailable [phone] Jorge A Storey MD Unavailable [phone] Encounter Details Date Type Department Care Team (Late st Contact Info) Description 08/26/2024 9:40 AM CDT Virtual Visit [facility] [address] [place] [address] Jorge A Storey MD [address] [place] [address] [phone] Cyst of lumbar facet joint (Primary Dx); [...] Description 10/28/2024 12:50 PM CDT Office Visit [facility] [address] [place] [phone] Jorge A Storey MD [address] [place] [address] 01/02/2025 10:45 AM CDT Office Visit [facility] Clinic [address] [phone] Sydney Huff DO [address] [place] [address] [phone] documented as of this encounter Visit Diagnoses Diagnosis Cyst of lumbar facet joint- Primary Spinal stenosis of lumbar region with neurogenic claudication Spinal stenosis, lumbar region, with neurogenic claudication documented in this encounter Care Teams Web Development Intern Relationship Specialty Start Date End Date Nicolette Parikh MD [facility] [address] [place] [address] PCP - General Internal Medicine 10/18/22 Sydney Huff DO [address] [place] [address] Neurology 08/05/21 Leidy Henderson AuD [address] [place] [address] Cooling Pan Tender Audiology 11/14/21 Sydney Huff DO [address] [place] [address] Assigned Neuroscience Provider 01/21/22 Rd Chang MD [address] [place] [address] Assigned PCP 04/19/24 Jorge A Storey MD [address] [place] [address] Assigned Musculoskeletal Provider 08/17/24 documented as of this encounter
[2024-10-03 14:19] LABS: Appearance Urine Clear (Clear); Bilirubin Urine 1+ (Negative); Blood Urine Negative (Negative); Color Urine Yellow (Yellow); Glucose Urine Negative (Negative); Ketones Urine 1+ (Negative); Leukocyte Esterase Urine Negative (Negative); Nitrite Urine Negative (Negative); Protein Urine 1+ (Negative); Specific Gravity Urine 1.025 (1.000-1.030)
--- NOTE | 2024-10-03 14:26 | ED_ITS ---
HPI - SOB/Dyspnea General Chief Complaint: Shortness of Breath/Dyspnea Stated Complaint: Out of breath- other illness do to a surgery Time Seen by Provider: 10/03/24 13:28 History of Present Illness HPI Narrative: This 83-year-old male comes in reporting shortness of breath for the past month or so. He states that he had a cyst on his spine that was removed surgically about a month ago and since then he has not been feeling right. The cyst was causing pain radiating down to his foot and that is much improved now has the pressure is relieved off of associated nerves. His surgery was delayed for a few months as he was noted to have high platelets. He is started on a medicine to treat this and his platelets of now normalized. He states that he does not have much for an appetite. He arrives here with normal vital signs except he does have tachypnea with respirations at about 35 per minute. His oximetry and heart rate are normal. Related Data Home Medications ?Medication ?Instructions ?Recorded ?Confirmed mv-mn-folic 200 mcg-vit K 15 1 cap PO DAILY 09/10/23 10/02/24 mcg-lutein 5 mg-zeaxanthin 1 mg capsule (PreserVision AREDS 2 Plus Multivit) Relaxium PO 07/23/24 10/02/24 sennosides 8.6 mg capsule (senna) 8.6 mg PO BID PRN 09/17/24 10/02/24 aspirin 81 mg tablet 81 mg PO QDAY 10/02/24 10/03/24 ondansetron HCl 4 mg tablet 4 mg PO Q6H PRN nausea 10/02/24 10/03/24 Previous Rx's ?Medication ?Instructions ?Recorded hydroxyurea 500 mg capsule (Hydrea) 500 mg PO QDAY #60 caps 08/20/24 Allergies Allergy/AdvReac Type Severity Reaction Status Date / Time Iodinated Contrast Media Allergy Intermediate Hives Verified 10/02/24 14:33 amoxicillin Allergy Unknown Hives Verified 10/02/24 14:33 Review of Systems Status of ROS: Reports: 10 or more systems reviewed and unremarkable except as noted in History and below Narrative: Constitutional: No fevers, no weight gain or loss. Eyes: No discharge. No vision changes. HENT: No congestion, no sore throat, no ear pain. Cardiovascular: No chest pain, no palpitations. Respiratory: No wheezes, no cough. Shortness of breath as described above. Gastrointestinal: No abdominal pain, no vomiting, no diarrhea. Genitourinary: No dysuria, no hematuria. Musculoskeletal: Normal range of motion. Skin: No rashes, no pruritis. Neurological: No dizziness, weakness, sensory change, speech change. Endo/Heme/Allergies: No bruising or bleeding. No polydipsia. Pysch: no suicidality, no anxiety, no insomnia. All other systems reviewed and are negative. 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) ?Z86.718 - Personal history of other venous thrombosis and embolism (ICD-10) Surgical History (Updated 09/16/24 @ 11:52 by Nicolette Parikh MD) Hx of decompressive lumbar laminectomy ?Z98.890 - Other specified postprocedural states (ICD-10) History of tonsillectomy ?Z90.89 - Acquired absence of other organs (ICD-10) History of appendectomy (1956) ?Z90.49 - Acquired absence of other specified parts of digestive tract (ICD- 10) History of ventral hernia repair (09/2009) ?Z98.890 - Other specified postprocedural states (ICD-10) ?Z87.19 - Personal history of other diseases of the digestive system (ICD-10) History of cholecystectomy ?Z90.49 - Acquired absence of other specified parts of digestive tract (ICD- 10) History of partial colectomy (2002) ?Z90.49 - Acquired absence of other specified parts of digestive tract (ICD- 10) Family History Father Alcohol dependence Social History (Updated 08/25/24 @ 16:20 by Radha Cobos ~ [facility]) What is your current living situation?: I presently have a place to live Problems where you live: no known problems In the past 12 months, utilities in danger of being shut off: no In past 12 months, lack of transportation kept you from medical appts, meetings, work, or getting things needed for daily living: no In the past 12 mos, have been you worried that your food would run out before you had money to buy more?: never true In the past 12 mos, the food you bought just didn't last and you didn't have money to buy more?: never true Smoking Status: Former smoker Do you use any of these nicotine containing products: None How often do you have a drink containing alcohol: never AUDIT-C Alcohol total score: 0 Non-prescribed substance use: denies use How often does anyone, including family, friends and others, physically hurt you : never How often does anyone, including family, friends and others, insult or talk down to you: never How often does anyone, including family, friends and others, threaten you with harm: never How often does anyone, including family, friends and others, scream or curse at you: never Exam Narrative: Exam Narrative: Constitutional: Well-developed, well-nourished, no acute distress. HEENT: Normocephalic, atraumatic. Neck: Normal range of motion. Nontender. Supple. Heart: Regular. No murmurs. Normal rate. Intact distal pulses. Lungs: Clear to auscultation. No chest discomfort. No wheezes, rhonchi, or rales. Tachypnea. Abdomen: Normal bowel sounds. Nontender. No rebound tenderness. Genitalia: Deferred. Back: No midline tenderness. Normal range of motion. Extremities: Normal range of motion. No injury. Skin: Intact. No rash. Warm. No erythema or pallor. Neurologic: No altered sensation. No weakness. Alert and oriented. Psychiatric: No suicidality. No anxiety or depression. No insomnia. Nursing notes and vitals signs are reviewed. Const: Vital Signs, click to edit/add: Vital Signs - 24 hr 10/03/24 12:58 10/03/24 15:08 Temperature 98 F Pulse Rate 62 Pulse Rate [Pulse Oximeter] 66 Respiratory Rate 32 H 22 Blood Pressure 114/65 Blood Pressure [Ri ght Upper Arm] 102/62 Pulse Oximetry 97 95 Oxygen Delivery Me thod Room Air Room Air Course Vital Signs Vital signs: Initial Vital Signs Temperature 98 F 10/03/24 12:58 Temperature Source Temporal Artery Scan 10/03/24 12:58 Pulse Rate 66 10/03/24 12:58 Respiratory Rate 32 H 10/03/24 12:58 Blood Pressure 102/62 10/03/24 12:58 Blood Pressure Mean 75 10/03/24 12:58 Blood Pressure Position Sitting 10/03/24 12:58 Pulse Oximetry 97 10/03/24 12:58 Oxygen Delivery Method Room Air 10/03/24 12:58 Vital Signs Temperature 98 F 10/03/24 12:58 Pulse Rate 66 10/03/24 12:58 Respiratory Rate 32 H 10/03/24 12:58 Blood Pressure 102/62 10/03/24 12:58 Pulse Oximetry 97 10/03/24 12:58 Oxygen Delivery Method Room Air 10/03/24 12:58 Temperature 98 F 10/03/24 12:58 Pulse Rate 62 10/03/24 15:08 Respiratory Rate 22 10/03/24 15:08 Blood Pressure 114/65 10/03/24 15:08 Pulse Oximetry 95 10/03/24 15:08 Oxygen Delivery Method Room Air 10/03/24 15:08 MDM - SOB/Dyspnea MDM Narrative Medical decision making narrative: This 83-year-old male comes in reporting shortness of breath. He arrives with normal oximetry and heart rate but does have increased respiratory rate. 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 An IV was established and labs are acquired. His D-dimer, troponin, white count and electrolytes all returned normal. His hemoglobin just slightly low and his platelets are elevated a bit over 600,000. The patient's states that he had his hydroxyurea a reduced in his dosage more recently and now platelets have increased. She was reporting a previous value around 200,000. Chest x-ray is obtained here which shows no acute pulmonary findings. Nasal pharyngeal swab is also negative for viruses tested. It could be that the hydroxyurea as causing some adverse effects as literature does state that reactions could include interstitial lung disease and pulmonary fibrosis. The patient is okay to be discharged home. I advised him to follow-up with his oncologist regarding these matters. He did receive a 1 time IV dose of dexamethasone 10 mg. Lab Data Labs: Lab Results 10/03/24 10/03/24 10/03/24 Range/Units 13:06 13:50 14:00 WBC (4.50-11.00) K/uL RBC (4.30-5.90) m/uL Hgb (13.5-17.5) gm/dL Hct (37.0-53.0) % MCV (80-100) fL MCH (26-34) pg MCHC (32-36) gm/dL Plt Count (140-440) K/uL Neut % (Auto) (42.0-72.0) % Lymph % (Auto) (20-44) % [place]cock % (Auto) (0.0-11.0) % Eos % (Auto) (0.0-7.0) % Baso % (Auto) (0.0-3.0) % Neut # (Auto) (1.7-7.0) K/uL Lymph # (Auto) (0.90-2.90) K/uL Glasscock # (Auto) (0.00-0.90) K/UL Eos # (Auto) (0.00-0.50) K/uL Baso # (Auto) (0.00-0.30) K/uL Abs Immat Gran (auto) (0.00-0.30) K/uL Imm/Tot Granulo (auto) % D-Dimer Quant (PE/DVT) (0.00-0.50) ug/ml Sodium (135-149) mmol/L Potassium (3.6-5.1) mmol/L Chloride (96-114) mmol/L Carbon Dioxide (20-32) mmol/L Anion Gap (7-15) mEq/L BUN (7-30) mg/dL Creatinine (0.5-1.5) mg/dL Estimated Creat Clear Estimated GFR ml/min Glucose (60-115) mg/dL Calcium (8.4-10.6) mg/dL Urine Color Yellow (Yellow) Urine Appearance Clear (Clear) Urine pH 6.0 (5.0-8.5) Ur Specific [place] 1.025 (1.000-1.030) Urine Protein 1+ A (Negative) Urine Glucose (UA) Negative (Negative) Urine Ketones 1+ A (Negative) Urine Blood Negative (Negative) Urine Nitrite Negative (Negative) Urine Bilirubin 1+ A (Negative) Urine Urobilinogen 4.0 A (0.2-1.0) Ur Leukocyte Esterase Negative (Negative) Urine RBC 0-2 (0-2) Urine WBC 0-2 (0-5) Ur Squamous Epith Cells Few (None-Few) Urine Bacteria Few A (None) Fine Granular Casts Moderate A (None) Urine Yeast Few A (None) SARS-CoV-2 (PCR) Negative SARS-CoV-2 (Negative) Influenza Type A (PCR) Negative PCR FLU A (Negative) Influenza Type B (PCR) Negative PCR FLU B (Negative) RSV (PCR) Negative PCR RSV (Negative) POC Troponin I 0.00 L (0.01-0.04) ng/ml 10/03/24 Range/Units 14:15 WBC 5.50 (4.50-11.00) K/uL RBC 3.35 L (4.30-5.90) m/uL Hgb 11.1 L (13.5-17.5) gm/dL Hct 34.0 L (37.0-53.0) % MCV 102 H (80-100) fL MCH 33 (26-34) pg MCHC 33 (32-36) gm/dL Plt Count 613 H (140-440) K/uL Neut % (Auto) 57.3 (42.0-72.0) % Lymph % (Auto) 28.0 (20-44) % Glasscock % (Auto) 12.0 H (0.0-11.0) % Eos % (Auto) 0.9 (0.0-7.0) % Baso % (Auto) 0.9 (0.0-3.0) % Neut # (Auto) 3.15 (1.7-7.0) K/uL Lymph # (Auto) 1.54 (0.90-2.90) K/uL Glasscock # (Auto) 0.70 (0.00-0.90) K/UL Eos # (Auto) 0.05 (0.00-0.50) K/uL Baso # (Auto) 0.05 (0.00-0.30) K/uL Abs Immat Gran (auto) 0.05 (0.00-0.30) K/uL Imm/Tot Granulo (auto) 0.9 % D-Dimer Quant (PE/DVT) 0.40 (0.00-0.50) ug/ml Sodium 142 (135-149) mmol/L Potassium 4.1 (3.6-5.1) mmol/L Chloride 106 (96-114) mmol/L Carbon Dioxide 28 (20-32) mmol/L Anion Gap 8 (7-15) mEq/L BUN 17 (7-30) mg/dL Creatinine 0.7 (0.5-1.5) mg/dL Estimated Creat Clear 46.78 Estimated GFR 90 ml/min Glucose 92 (60-115) mg/dL Calcium 9.0 (8.4-10.6) mg/dL Urine Color (Yellow) Urine Appearance (Clear) Urine pH (5.0-8.5) Ur Specific [place] (1.000-1.030) Urine Protein (Negative) Urine Glucose (UA) (Negative) Urine Ketones (Negative) Urine Blood (Negative) Urine Nitrite (Negative) Urine Bilirubin (Negative) Urine Urobilinogen (0.2-1.0) Ur Leukocyte Esterase (Negative) Urine RBC (0-2) Urine WBC (0-5) Ur Squamous Epith Cells (None-Few) Urine Bacteria (None) Fine Granular Casts (None) Urine Yeast (None) SARS-CoV-2 (PCR) (Negative) Influenza Type A (PCR) (Negative) Influenza Type B (PCR) (Negative) RSV (PCR) (Negative) POC Troponin I (0.01-0.04) ng/ml Imaging Data Chest x-ray: Radiologist's impression: No evidence of acute cardiopulmonary disease. ECG Data Attestation: I personally reviewed and interpreted this ECG as follows: Interpretation: Normal sinus rhythm. Rate is 54 beats per minute. There are no ST or T-wave abnormalities. Discharge Plan Discharge Clinical Impression: Thrombocytosis, Shortness of breath Patient Disposition: Home, Self-Care Condition: Stable Additional Instructions: Follow-up with oncologist for ongoing management of thrombocytosis. Return if worsening symptoms occur. Prescriptions: No Action PreserVision AREDS 2 Plus MV 200 mcg-15 mcg- 5 mg-1 mg capsule 1 cap PO DAILY hydroxyurea [Hydrea] 500 mg capsule 500 mg PO QDAY Qty: 60 1RF senna 8.6 mg capsule 8.6 mg PO BID PRN ondansetron HCl 4 mg tablet 4 mg PO Q6H PRN (Reason: nausea) Rx Instructions: Generic for Zofran. May cause constipation. aspirin 81 mg tablet 81 mg PO QDAY Relaxium PO Patient Comments: Helps sleep at night Follow Up/Referrals: Nicolette Parikh MD [Primary Care Provider] - Stand Alone Forms: [facility] Info Instructions
[2024-10-03 14:34] LABS: RBC Urine 0-2 (0-2); WBC Urine 0-2 (0-5)
[2024-10-03 14:35] LABS: Bacteria Urine Few; Fine Granular Casts Urine Moderate; Squamous Epithelial Cell Urine Few (None-Few)
[2024-10-03 14:39] LABS: Basophils Absolute Auto 0.05 K/uL (0.00-0.30); Basophils Percent Auto 0.9 % (0.0-3.0); Eosinophils Absolute Auto 0.05 K/uL (0.00-0.50); Eosinophils Percent Auto 0.9 % (0.0-7.0); Hemoglobin* 11.1 gm/dL (13.5-17.5); Immature Granulocytes Abs Auto 0.05 K/uL (0.00-0.30); Immature Granulocytes Pct Auto 0.9 %; Lymphocytes Absolute Auto 1.54 K/uL (0.90-2.90); Mean Corpuscular HGB Conc 33 gm/dL (32-36); Mean Corpuscular Hemoglobin 33 pg (26-34); Mean Corpuscular Volume 102 fL (80-100); Neutrophils Absolute Auto 3.15 K/uL (1.7-7.0); Neutrophils Percent Auto 57.3 % (42.0-72.0); Platelet Count* 613 K/uL (140-440); Red Blood Count 3.35 m/uL (4.30-5.90)
[2024-10-03 14:41] LABS: Chloride* 106 mmol/L (96-114)
[2024-10-03 14:42] LABS: Potassium* 4.1 mmol/L (3.6-5.1); Slide Review Reflex No; Sodium* 142 mmol/L (135-149)
[2024-10-03 14:44] LABS: Blood Urea Nitrogen* 17 mg/dL (7-30); Creatinine* 0.7 mg/dL (0.5-1.5); Est. Creatinine Clearance* 46.78; Estimated Glomerular Filt Rate 90 ml/min
[2024-10-03 14:45] LABS: Anion Gap 8 mEq/L (7-15); Carbon Dioxide* 28 mmol/L (20-32); Glucose* 92 mg/dL (60-115)
[2024-10-03 15:08] VITALS: BP 114/65; PULSE 62; RESP 22; O2SAT 95
[2024-10-03] MEDS: dexAMETHasone 4 MG/ML VIAL 10 MG IV (16:12)
== END 2024-10-03 16:18 | disposition home or self-care (01) ==
PROVIDERS: Emergency Provider Emergency Medicine Emergency Medical Services; PCP Internal Medicine
DX: R06.02 Shortness of breath (principal); D75.839 Thrombocytosis, unspecified; R39.9 Unspecified symptoms and signs involving the genitourinary system
CPT/HCPCS: 36415; 71046; 80048; 81001; 84484; 85025; 85379; 87086; 87631; 93005; 99284; J1100

== ENCOUNTER 2024-12-31 09:45 | Outpatient (RCR) | payer MEDICARE, SELFPAY ==
[2024-07-23 09:46] LABS: Hematocrit 38.6 % (37.0-53.0); Hemoglobin* 12.4 gm/dL (13.5-17.5); Immature Granulocytes Abs Auto 0.15 K/uL (0.00-0.30); Immature Granulocytes Pct Auto 1.4 %; Mean Corpuscular HGB Conc 32 gm/dL (32-36); Mean Corpuscular Hemoglobin 30 pg (26-34); Mean Corpuscular Volume 92 fL (80-100); RDW Coefficient of Variation % 16.1 % (11.5-15.5); Red Blood Count 4.20 m/uL (4.30-5.90); White Blood Count* 10.45 K/uL (4.50-11.00)
[2024-07-23 09:49] LABS: Lymphocytes Absolute Auto 1.00 K/uL (0.90-2.90); Slide Review Reflex No
[2024-07-23 09:52] LABS: Albumin* 4.2 g/dL (3.3-5.0); Chloride* 107 mmol/L (96-114)
[2024-07-23 09:53] LABS: Potassium* 4.3 mmol/L (3.6-5.1); Sodium* 141 mmol/L (135-149)
[2024-07-23 09:55] LABS: Anion Gap 9 mEq/L (7-15); Bilirubin Total* 0.6 mg/dL (0.1-1.5); Blood Urea Nitrogen* 28 mg/dL (7-30); Carbon Dioxide* 25 mmol/L (20-32); Creatinine* 1.2 mg/dL (0.5-1.5); Est. Creatinine Clearance* 40.61; Estimated Glomerular Filt Rate 59 ml/min; Total Protein* 6.3 g/dL (6.0-8.3)
[2024-07-23 09:56] LABS: Alanine Aminotransferase* 42 U/L (4-50); Alkaline Phosphatase* 89 U/L (40-150); Aspartate Amino Transferase* 39 U/L (12-35); Calcium* 9.1 mg/dL (8.4-10.6); Glucose* 106 mg/dL (60-115)
[2024-07-23 10:03] LABS: Iron* 113 ug/dL (49-181)
[2024-07-23 10:12] LABS: Percent Iron Saturation 41 % (20-50); Total Iron Binding Capacity 277 ug/dL (261-462)
--- NOTE | 2024-07-24 11:19 | ONC.NURNOTE ---
Addendum entered by Farheen Abdul RN 07/24/24 13:57: Leonardo Smith will be picking up Hydrea today to start Addendum entered by Farheen Abdul RN 07/24/24 13:27: phoned back reviewed hydrea instructions medication was ordered and will be available this weekend for bead picker with many questions about pain medication new RX for MS Contin- not sure how to dose with the oxycodone and MSC reviewed sheduled and as needed dosing discussed bowel therapy currently take colace- not sure of the dose- may need to increase to BID/add miralax/ - may Original Note: Follow up call to check in on new start of Hydrea message left on voicemail to call [facility] -verify dosing instructions -did he bead picker at pharmacy -follow up of any questions regarding side effects
--- NOTE | 2024-07-28 14:27 | ONC.NURNOTE ---
Lexi follow up call: Bone marrow done today taking twice a day reports no concerns
[2024-08-20 11:12] LABS: Hematocrit 34.3 % (37.0-53.0); Hemoglobin* 11.4 gm/dL (13.5-17.5); Immature Granulocytes Pct Auto 1.2 %; Mean Corpuscular HGB Conc 33 gm/dL (32-36); Mean Corpuscular Hemoglobin 31 pg (26-34); Mean Corpuscular Volume 94 fL (80-100); RDW Coefficient of Variation % 18.0 % (11.5-15.5); Red Blood Count 3.66 m/uL (4.30-5.90); White Blood Count* 3.22 K/uL (4.50-11.00)
[2024-08-20 11:15] LABS: Immature Granulocytes Abs Auto 0.00 K/uL (0.00-0.30); Lymphocytes Absolute Auto 0.70 K/uL (0.90-2.90); Slide Review Reflex No
[2024-08-20 11:24] LABS: Albumin* 3.7 g/dL (3.3-5.0); Chloride* 103 mmol/L (96-114); Potassium* 4.3 mmol/L (3.6-5.1); Sodium* 138 mmol/L (135-149)
[2024-08-20 11:26] LABS: Alanine Aminotransferase* 26 U/L (4-50); Alkaline Phosphatase* 89 U/L (40-150); Anion Gap 4 mEq/L (7-15); Aspartate Amino Transferase* 32 U/L (12-35); Bilirubin Total* 0.9 mg/dL (0.1-1.5); Blood Urea Nitrogen* 17 mg/dL (7-30); Carbon Dioxide* 31 mmol/L (20-32); Creatinine* 0.8 mg/dL (0.5-1.5); Est. Creatinine Clearance* 48.74; Estimated Glomerular Filt Rate 87 ml/min
[2024-08-20 11:27] LABS: Calcium* 8.7 mg/dL (8.4-10.6); Glucose* 84 mg/dL (60-115); Total Protein* 6.0 g/dL (6.0-8.3)
--- NOTE | 2024-08-29 13:04 | ONC.NURNOTE ---
Patient called today with complaints of feeling nauseated after he takes his Hydrea medication and is asking if he should still be taking the medication. RN called patient to check in, patient reports he has been taking his Hydrea in the mornings and is feeling nauseated after. States he has not taken it yet today and is going to try taking it a bedtime to see if he can sleep through the nausea. RN advised him to also try having something to eat prior to taking the medication. RN will check in on Sunday to see if any of this has helped. If not will check with Dr. Sahni to see if she wants to prescribe a PRN nausea medication. Patient agreeable to the plan.
[2024-09-17 10:55] LABS: White Blood Count* 4.95 K/uL (4.50-11.00)
[2024-09-17 10:56] LABS: Hematocrit 31.0 % (37.0-53.0); Hemoglobin* 10.2 gm/dL (13.5-17.5); Immature Granulocytes Abs Auto 0.04 K/uL (0.00-0.30); Immature Granulocytes Pct Auto 0.8 %; Lymphocytes Absolute Auto 1.33 K/uL (0.90-2.90); Mean Corpuscular HGB Conc 33 gm/dL (32-36); Mean Corpuscular Hemoglobin 32 pg (26-34); Mean Corpuscular Volume 98 fL (80-100); RDW Coefficient of Variation % 19.9 % (11.5-15.5); Red Blood Count 3.17 m/uL (4.30-5.90)
[2024-09-17 10:57] LABS: Slide Review Reflex No
[2024-10-07 13:27] LABS: Hematocrit 34.6 % (37.0-53.0); Hemoglobin* 11.2 gm/dL (13.5-17.5); Immature Granulocytes Abs Auto 0.06 K/uL (0.00-0.30); Immature Granulocytes Pct Auto 1.0 %; Lymphocytes Absolute Auto 1.71 K/uL (0.90-2.90); Mean Corpuscular HGB Conc 32 gm/dL (32-36); Mean Corpuscular Hemoglobin 33 pg (26-34); Mean Corpuscular Volume 103 fL (80-100); RDW Coefficient of Variation % 19.5 % (11.5-15.5); Red Blood Count 3.35 m/uL (4.30-5.90); White Blood Count* 5.94 K/uL (4.50-11.00)
[2024-10-07 13:34] LABS: Slide Review Reflex No
[2024-10-07 13:48] LABS: Albumin* 3.6 g/dL (3.3-5.0); Chloride* 105 mmol/L (96-114)
[2024-10-07 13:49] LABS: Potassium* 4.5 mmol/L (3.6-5.1); Sodium* 138 mmol/L (135-149)
[2024-10-07 13:51] LABS: Alanine Aminotransferase* 19 U/L (4-50); Anion Gap 2 mEq/L (7-15); Aspartate Amino Transferase* 29 U/L (12-35); Bilirubin Total* 1.0 mg/dL (0.1-1.5); Blood Urea Nitrogen* 17 mg/dL (7-30); Carbon Dioxide* 31 mmol/L (20-32); Creatinine* 0.7 mg/dL (0.5-1.5); Est. Creatinine Clearance* 48.74; Estimated Glomerular Filt Rate 90 ml/min
[2024-10-07 13:52] LABS: Alkaline Phosphatase* 84 U/L (40-150); Calcium* 9.0 mg/dL (8.4-10.6); Glucose* 87 mg/dL (60-115); Total Protein* 5.9 g/dL (6.0-8.3)
[2024-11-06 11:42] LABS: Hematocrit 38.3 % (37.0-53.0); Hemoglobin* 12.4 gm/dL (13.5-17.5); Immature Granulocytes Abs Auto 0.04 K/uL (0.00-0.30); Immature Granulocytes Pct Auto 0.7 %; Lymphocytes Absolute Auto 1.92 K/uL (0.90-2.90); Mean Corpuscular HGB Conc 32 gm/dL (32-36); Mean Corpuscular Hemoglobin 35 pg (26-34); Mean Corpuscular Volume 107 fL (80-100); RDW Coefficient of Variation % 14.4 % (11.5-15.5); Red Blood Count 3.59 m/uL (4.30-5.90); White Blood Count* 5.56 K/uL (4.50-11.00)
[2024-11-06 11:43] LABS: Slide Review Reflex No
--- NOTE | 2024-11-10 14:05 | ONC.NURNOTE ---
lab results reviewed by Dr Sahni and message left for to call for results resutls stable at current dose hydrea 500mg M-F and 1000 mg Sa, Luna next lab due in 1 month
[2024-12-02 11:22] LABS: Hematocrit 36.8 % (37.0-53.0); Hemoglobin* 11.9 gm/dL (13.5-17.5); Immature Granulocytes Abs Auto 0.02 K/uL (0.00-0.30); Immature Granulocytes Pct Auto 0.4 %; Lymphocytes Absolute Auto 1.53 K/uL (0.90-2.90); Mean Corpuscular HGB Conc 32 gm/dL (32-36); Mean Corpuscular Hemoglobin 34 pg (26-34); Mean Corpuscular Volume 106 fL (80-100); RDW Coefficient of Variation % 13.1 % (11.5-15.5); Red Blood Count 3.46 m/uL (4.30-5.90); White Blood Count* 4.72 K/uL (4.50-11.00)
[2024-12-02 11:29] LABS: Slide Review Reflex No
[2024-12-02 11:36] LABS: Albumin* 4.1 g/dL (3.3-5.0); Chloride* 108 mmol/L (96-114); Potassium* 3.9 mmol/L (3.6-5.1); Sodium* 142 mmol/L (135-149)
[2024-12-02 11:38] LABS: Blood Urea Nitrogen* 20 mg/dL (7-30); Creatinine* 0.7 mg/dL (0.5-1.5); Est. Creatinine Clearance* 47.85; Estimated Glomerular Filt Rate 90 ml/min
[2024-12-02 11:39] LABS: Alanine Aminotransferase* 18 U/L (4-50); Alkaline Phosphatase* 64 U/L (40-150); Anion Gap 5 mEq/L (7-15); Aspartate Amino Transferase* 26 U/L (12-35); Bilirubin Total* 0.7 mg/dL (0.1-1.5); Calcium* 9.3 mg/dL (8.4-10.6); Carbon Dioxide* 29 mmol/L (20-32); Glucose* 80 mg/dL (60-115); Total Protein* 6.3 g/dL (6.0-8.3)
--- NOTE | 2024-12-02 14:30 | ONC.NURNOTE ---
Lab results noted and called to Leonardo enciso on all counts to continue on Hydrea 500 mg M-f and 1000 mg S, Luna next appts reviewed
[2024-12-31 10:16] LABS: Hematocrit 34.2 % (37.0-53.0); Hemoglobin* 11.1 gm/dL (13.5-17.5); Immature Granulocytes Abs Auto 0.03 K/uL (0.00-0.30); Immature Granulocytes Pct Auto 0.7 %; Lymphocytes Absolute Auto 1.40 K/uL (0.90-2.90); Mean Corpuscular HGB Conc 33 gm/dL (32-36); Mean Corpuscular Hemoglobin 34 pg (26-34); Mean Corpuscular Volume 105 fL (80-100); RDW Coefficient of Variation % 14.2 % (11.5-15.5); Red Blood Count 3.26 m/uL (4.30-5.90); White Blood Count* 4.54 K/uL (4.50-11.00)
[2024-12-31 10:21] LABS: Slide Review Reflex No
== END 2025-01-19 23:59 | disposition home or self-care (01) ==
LOC: CCIC 09:45
PROVIDERS: PCP Internal Medicine; Referring Provider Internal Medicine; Visit Provider Internal Medicine Hematology & Oncology
DX: D47.3 Essential (hemorrhagic) thrombocythemia (principal); D75.839 Thrombocytosis, unspecified; D47.1 Chronic myeloproliferative disease; Z79.82 Long term (current) use of aspirin; M48.061 Spinal stenosis, lumbar region without neurogenic claudication
CPT/HCPCS: 36415; 80053; 82728; 83540; 83550; 83615; 85025; 99202; 99204; 99213; 99214; G0463